=== PATIENT | male | born 1960 | race Caucasian/White ===

== ENCOUNTER 2018-11-15 12:36 | Emergency (ER) | payer OTHER ==
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
[2018-11-15 19:05] VITALS: TEMP 97.5
[2018-11-15 19:08] VITALS: BP 110/71; O2SAT 99
== END 2018-11-15 16:28 | disposition home or self-care (01) ==
LOC: ER 12:36
DX: S00.90XA Unspecified superficial injury of unspecified part of head, initial encounter (principal); S16.1XXA Strain of muscle, fascia and tendon at neck level, initial encounter; V43.52XA Car driver injured in collision with other type car in traffic accident, initial encounter; Y93.89 Activity, other specified; Y92.410 Unspecified street and highway as the place of occurrence of the external cause; K21.9 Gastro-esophageal reflux disease without esophagitis; F41.8 Other specified anxiety disorders
CPT/HCPCS: 70450; 72125; 99282

== ENCOUNTER 2019-09-02 17:16 | Emergency (ER) | payer OTHER ==
--- NOTE | 2019-09-02 17:42 | ER ---
Nurse's Notes [facility] Name: Ayden España Age: 59 yrs Sex: Male : 1960 Arrival Date: 09/02/2019 Time: 17:20 Bed 2 Private MD: Diagnosis: Acute contact otitis externa, bilateral Presentation: 09/01 17:26 Chief complaint: Patient states: Benton left ear fluttering today, possible insect. ll1 Coronavirus screen: Patient denies a cough. Patient denies shortness of breath or difficulty breathing. Patient denies measured and/or subjective temperature greater than 100.4F prior to today's visit. Patient denies travel on a cruise ship or to a country the [facility] currently lists as an affected area. Patient denies contact with known and/or suspected case of COVID-19. Ebola Screen: Patient denies travel to an Ebola-affected area in the 21 days before illness onset. Initial Sepsis Screen: Does the patient meet any 2 criteria? No. Patient's initial sepsis screen is negative. Risk Assessment: Do you want to hurt yourself or someone else? Patient reports no desire to harm self or others. Onset of symptoms was September 02, 2019. 17:26 Method Of Arrival: Ambulatory ll1 17:26 Acuity: MAVIS 4 ll1 17:30 Initial Sepsis Screen: Does the patient have a suspected source of infection? No. jr10 Patient's initial sepsis screen is negative. Historical: - Allergies: 17:25 NKDA; ll1 - PMHx: 17:25 BAKERS CYST REMOVAL; Depression; GERD; Anxiety; ll1 - Immunization history:: Adult Immunizations up to date. - Social history:: Smoking status: Patient denies any tobacco usage or history of. Patient uses alcohol, only on a social basis. Patient/guardian denies using street drugs. Screenin:30 Abuse screen: Denies threats or abuse. Denies injuries from another. Nutritional jr10 screening: No deficits noted. Tuberculosis screening: No symptoms or risk factors identified. Fall Risk None identified. Assessment: 17:30 General: Appears in no apparent distress. Behavior is calm, cooperative, appropriate jr10 for age. Pain: Denies pain. Neuro: No deficits noted. EENT: Reports "I feel a fluttering in my left ear that started at about 1630 after I took a shower and I feel like it's a bug in my ear like I can still feel it fluttering around." . Denies decreased hearing in left ear. Vital Signs: 17:26 BP 126 / 87; Pulse 85; Resp 17; Temp 98.6; Pulse Ox 99% ; Pain 0/10; ll1 ED Course: 17:20 Patient arrived in ED. mr 17:27 Triage completed. ll1 17:27 Arm band placed on Patient placed in an exam room, on a stretcher. ll1 17:28 Sundeep Piedra, RN is Primary Nurse. 17:30 Bed in low position. Call light in reach. Side rails up X 1. jr10 17:30 No provider procedures requiring assistance completed. jr10 17:30 Patient did not have IV access during this emergency room visit. jr10 17:37 Ye Brooks PA is PHCP. jr8 17:37 Carrington Rangel MD is Attending Physician. jr8 17:40 PHCP role handed off by Ye Brooks PA snw 17:40 Tessy Curtis FNP-C is PHCP. snw Administered Medications: No medications were administered Outcome: 17:41 Discharge ordered by . snw 17:54 Discharged to home jr10 17:54 Condition: good 17:54 Discharge instructions given to patient, d/c instructions given ENE Collins 17:58 Instructed on discharge instructions, follow up and referral plans. medication usage, sv Demonstrated understanding of instructions, follow-up care, medications, Prescriptions given X 1. 18:00 Patient left the ED. sv Signatures: Karina Marx RN RN Tessy Curtis FNP-C FNP-Marie Hussein Agueda Sundeep Piedra, RN ENE Ye Brooks PA PA [facility] Anaya Ma RN RN [facility] Loan Savage [facility]
--- NOTE | 2019-09-02 17:42 | EDPHYS ---
Physician Documentation [facility] Name: Ayden España Age: 59 yrs Sex: Male : 1960 Arrival Date: 09/02/2019 Time: 17:20 Bed 2 Private MD: ED Physician Carrington Rangel HPI: 09/01 17:51 This 59 yrs old Male presents to ER via Ambulatory with complaints of Foreign snw Body In Ear. 17:51 Onset: The symptoms/episode began/occurred suddenly. It is unknown whether or not the snw patient has had similar symptoms in the past. The patient has not recently seen a physician. Historical: - Allergies: 17:25 NKDA; ll1 - PMHx: 17:25 BAKERS CYST REMOVAL; Depression; GERD; Anxiety; ll1 - Immunization history:: Adult Immunizations up to date. - Social history:: Smoking status: Patient denies any tobacco usage or history of. Patient uses alcohol, only on a social basis. Patient/guardian denies using street drugs. ROS: 17:49 Constitutional: Negative for fever, chills, and weight loss, Eyes: Negative for injury, snw pain, redness, and discharge, ENT: Negative for injury, pain, and discharge, pt states he feels something moving in his left ear Neck: Negative for injury, pain, and swelling, Cardiovascular: Negative for chest pain, palpitations, and edema, Respiratory: Negative for shortness of breath, cough, wheezing, and pleuritic chest pain, Abdomen/GI: Negative for abdominal pain, nausea, vomiting, diarrhea, and constipation, Back: Negative for injury and pain, : Negative for injury, bleeding, discharge, and swelling, MS/Extremity: Negative for injury and deformity, Skin: Negative for injury, rash, and discoloration, Neuro: Negative for headache, weakness, numbness, tingling, and seizure, Psych: Negative for depression, anxiety, suicide ideation, homicidal ideation, and hallucinations. Exam: 17:48 Constitutional: This is a well developed, well nourished patient who is awake, alert, snw and in no acute distress. Head/Face: Normocephalic, atraumatic. Eyes: Pupils equal round and reactive to light, extra-ocular motions intact. Lids and lashes normal. Conjunctiva and sclera are non-icteric and not injected. Cornea within normal limits. Periorbital areas with no swelling, redness, or edema. ENT: Nares patent. No nasal discharge, no septal abnormalities noted. Tympanic membranes are normal and external auditory canals are slightly tender, erythematous. Oropharynx with no redness, swelling, or masses, exudates, or evidence of obstruction, uvula midline. Mucous membranes moist. Neck: Trachea midline, no thyromegaly or masses palpated, and no cervical lymphadenopathy. Supple, full range of motion without nuchal rigidity, or vertebral point tenderness. No Meningismus. Chest/axilla: Normal chest wall appearance and motion. Nontender with no deformity. No lesions are appreciated. Cardiovascular: Regular rate and rhythm with a normal S1 and S2. No gallops, murmurs, or rubs. Normal PMI, no JVD. No pulse deficits. Respiratory: Lungs have equal breath sounds bilaterally, clear to auscultation and percussion. No rales, rhonchi or wheezes noted. No increased work of breathing, no retractions or nasal flaring. Abdomen/GI: Soft, non-tender, with normal bowel sounds. No distension or tympany. No guarding or rebound. No evidence of tenderness throughout. Back: No spinal tenderness. No costovertebral tenderness. Full range of motion. Skin: Warm, dry with normal turgor. Normal color with no rashes, no lesions, and no evidence of cellulitis. MS/ Extremity: Pulses equal, no cyanosis. Neurovascular intact. Full, normal range of motion. Neuro: Awake and alert, GCS 15, oriented to person, place, time, and situation. Cranial nerves II-XII grossly intact. Motor strength 5/5 in all extremities. Sensory grossly intact. Cerebellar exam normal. Normal gait. Psych: Awake, alert, with orientation to person, place and time. Behavior, mood, and affect are within normal limits. Vital Signs: 17:26 BP 126 / 87; Pulse 85; Resp 17; Temp 98.6; Pulse Ox 99% ; Pain 0/10; ll1 MDM: 17:37 Patient medically screened. jr8 17:47 Data reviewed: vital signs, nurses notes. Data interpreted: Pulse oximetry: on room air snw is 99 %. Interpretation: normal. Counseling: I had a detailed discussion with the patient and/or guardian regarding: the historical points, exam findings, and any diagnostic results supporting the discharge/admit diagnosis, the presence of at least one elevated blood pressure reading (>120/80) during this emergency department visit, the need for outpatient follow up, for definitive care, to return to the emergency department if symptoms worsen or persist or if there are any questions or concerns that arise at home. Special discussion: I have referred the patient to see his PCP for further evaluation of high blood pressure. Based on the history and exam findings, there is no indication for further emergent testing or inpatient evaluation. I discussed with the patient/guardian the need to see the primary care provider for further evaluation of the symptoms. Administered Medications: No medications were administered Disposition: 19:06 Co-signature as Attending Physician, Carrington Rangel MD I agree with the assessment and kdr plan of care. Disposition: 09/02/19 17:41 Discharged to Home. Impression: Acute contact otitis externa, bilateral. - Condition is Stable. - Discharge Instructions: Ear Drops, Adult, Otitis Externa. - Prescriptions for Cortisporin- TC 3.3-3-10-0.5 mg/mL Otic Suspension - instill 4 drop by OTIC route every 6 hours; 1 bottle. - Medication Reconciliation Form, Thank You Letter, Antibiotic Education, Prescription Opioid Use form. - Follow up: Emergency Department; When: As needed; Reason: Worsening of condition. Follow up: Private Physician; When: 2 - 3 days; Reason: Recheck today's complaints, Continuance of care, Re-evaluation by your physician. Signatures: Karina Marx RN RN sv Rittger, Kevin, MD MD kdr Waters, Shelly, [employer]-Ye Enriquez PA PA jr8 Anaya Ma RN RN ll1 Corrections: (The following items were deleted from the chart) 18:00 17:41 09/02/2019 17:41 Discharged to Home. Impression: Acute contact otitis externa, sv bilateral. Condition is Stable. Forms are Medication Reconciliation Form, Thank You Letter, Antibiotic Education, Prescription Opioid Use. Follow up: Emergency Department; When: As needed; Reason: Worsening of condition. Follow up: Private Physician; When: 2 - 3 days; Reason: Recheck today's complaints, Continuance of care, Re-evaluation by your physician. snw
[2019-09-02 19:27] VITALS: BP 126/87; TEMP 98.6; O2SAT 99
== END 2019-09-02 18:00 | disposition home or self-care (01) ==
LOC: ER 17:16
DX: H60.533 Acute contact otitis externa, bilateral (principal)
CPT/HCPCS: 99282

== ENCOUNTER 2021-10-16 20:49 | Observation (INO) | payer OTHER ==
--- OUTSIDE RECORDS SUMMARY | 2021-10-16 20:53 | XMS REPORT | Continuity of Care Document ---
:1960 Author Organization [facility] t Address [address] [place] [address] Care Team Providers Name Role Phone KLEBER BERNABE Primary Care Physician Unavailable Kleber Bernabe Attending Clinician Unavailable Jass TAO, Blaine Rain Attending Clinician BLAINE BAILEY Attending Clinician Unavailable Payers Payer Name Policy Type Policy Number Effective Date Expiration Date S ource Problems Condition Condition Condition Status Onset Resolution Last Treating Co mments Source Name Details Category Date Date Treatment Clinician Date Hand pain, Hand pain, Disease Active U nivers left left 5-10 ity of 00:00: [address] Allergies, Adverse Reactions, Alerts Allergy Allergy Status Severity Reaction(s) Onset Inactive Treating Comm ents Source Name Type Date Date Clinician NO KNOWN Drug Active Univers ALLERGIE Class ity of S [facility] Social History Social Habit Start Date Stop Date Quantity Comments Source History of Chews Tobacco University of tobacco use [facility] Exposure to Not sure [facility] SARS-CoV-2 [facility] (event) [place] Alcohol intake 2020-10-15 2020-10-15 Current drinker Unive rsity of 00:00:00 00:00:00 of alcohol [facility] (finding) [place] Sex Ass[birth year] At [birth year] Universit y of 00:00:00 00:00:00 [facility] Smoking Status Start Date Stop Date Source Never smoker [facility] Medications Ordered Filled Start Stop Current Ordering Indication Dosage Frequency Signature Comments Components Source Medication Medication Date Date Medication? Clinician (SIG) Name Name diclofenac 2020-02 Yes [id number] 75mg Take 1 Univers 75 mg EC 2-01 tablet by ity of tablet 00:00: mouth 2 [place] (two) Medical times Branch daily with meals. diclofenac 2020-02 Yes [id number] 75mg Take 1 Univers 75 mg EC 2-01 tablet by ity of tablet 00:00: mouth 2 [place] (two) Medical times Branch daily with meals. diclofenac 0 Yes [id number] 75mg Take 1 Univers 75 mg EC 8-30 9102 tablet by ity of tablet 00:00: mouth 2 [place] (two) Medical times Branch daily with meals. diclofenac 0 Yes [id number] 75mg Take 1 Univers 75 mg EC 8-30 9102 tablet by ity of tablet 00:00: mouth 2 [place] (two) Medical times Branch daily with meals. CITALOPRAM Yes Take by [facility] ers HYDROBROMID 7-08 mouth. ity of E 12:54: [place] (CITALOPRAM 25 Medical ORAL) [place] OMEPRAZOLE Yes Take by [facility] ers ORAL 7-08 mouth. ity of 12:54: [address] aspirin 81 Yes 81mg Take 81 mg U nivers mg chewable 7-08 by mouth ity of tablet 12:54: daily. [address] CITALOPRAM Yes Take by [facility] HYDROBROMID 7-08 mouth. ity of E 12:54: [place] (CITALOPRAM 25 Medical ORAL) [place] OMEPRAZOLE Yes Take by [facility] ers ORAL 7-08 mouth. ity of 12:54: [address] aspirin 81 Yes 81mg Take 81 mg U nivers mg chewable 7-08 by mouth ity of tablet 12:54: daily. [address] DUEXIS Yes Univers 800-26.6 mg 3-08 ity of per tablet 00:00: [address] Branch DUEXIS Yes Univers 800-26.6 mg 3-08 ity of per tablet 00:00: [address] Branch Immunizations Ordered Filled Immunization Date Status Comments [facility] e Immunization Name Name SARS-COV-2 COVID-19 2020-06-16 Completed [facility] rsity of PFIZER VACCINE 00:00:00 [facility] SARS-COV-2 COVID-19 2020-06-16 Completed Unive rsity of PFIZER VACCINE 00:00:00 [facility] SARS-COV-2 COVID-19 2020-05-26 Completed Unive rsity of PFIZER VACCINE 00:00:00 [facility] SARS-COV-2 COVID-19 2020-05-26 Completed Unive rsity of PFIZER VACCINE 00:00:00 [facility] Vital Signs Vital Name Observation Time Observation Value Comments Source Systolic blood 2021-01-16 19:17:00 124 mm[Hg] Univer sity of [facility] Diastolic blood 2021-01-16 19:17:00 75 mm[Hg] Unive rsity of [facility] Heart rate 2021-01-16 19:17:00 82 /min [facility] Body height 2021-01-16 19:17:[address] [facility] Body weight 2021-01-16 19:17:[address] [facility] BMI 2021-01-16 19:17:00 27.98 kg/m2 [facility] Procedures This patient has no known procedures. Encounters Start End Encounter Admission Attending Care Care Encounter Source Date/Time Date/Time Type Type Clinicians Facility Department ID 2021-03-13 [facility] [id number] Common 14:03:11 [facility] [id number] [facility] 2021-03-13 [facility] [id number] Common 14:02:22 Kleber [id number] [facility] 2021-03-13 Outpatient Bernabe, [facility] [id number] Common 13:34:00 Kleber [id number] [facility] 2021-03-13 Outpatient Bernabe, [facility] [id number] Common 13:33:04 Kleber [id number] [facility] 2021-03-13 [facility] [id number] Common 13:29:32 Kleber [id number] [facility] 2021-03-13 Outpatient Bernabe, STLC [facility] [id number] Common 13:28:45 Kleber [id number] [facility] 2021-03-13 Outpatient Bernabe, [facility] [id number] Common 13:28:22 Kleber [id number] [facility] 2021-03-13 Outpatient Bernabe, STLMLC ST[facility] Common 13:05:47 Kleber [id number] [facility] 2021-03-13 Outpatient [facility] Common 12:46:43 [id number] [facility] 2021-03-13 Outpatient [facility] Common 12:42:18 [id number] [facility] 2021-01-16 2021-01-16 Office Jass [facility] [id number] Univers 13:05:09 13:56:23 Visit Blaine [facility] [id number] it y of [place] [id number] Michael as LEANNE?BLEA [phone] Mi silver JACKMAN [address] [place] [address] MEDICAL OFFICE BUILDING 2021-01-16 2021-01-16 Outpatient R JASS [facility] [id number] Univers 13:00:00 13:56:23 BLAINE beyer [facility] Results This patient has no known results.
[2021-10-16 21:39] LABS: Urine Blood Trace-lysed (Negative); Urine Glucose Negative (Negative); Urine Protein Negative (Negative)
[2021-10-16 21:46] LABS: Absolute Lymphocytes (CBC) 1.7 K/uL (0.7-4.9); Hematocrit 40.4 % (39.6-49.0); Lymphocytes % 36.3 % (15.3-44.8); MPV 6.7 fL (7.6-11.3); RBC Red Blood Cell Count 4.29 M/uL (4.33-5.43)
--- NOTE | 2021-10-16 21:52 | RAD REPORT ---
EXAM DESCRIPTION: Azam Single View10/16/2021 9:41 pm CLINICAL HISTORY: Chest pain COMPARISON: 2015 FINDINGS: The lungs appear clear of acute infiltrate. The heart is upper limits normal size IMPRESSION: No acute abnormalities displayed
[2021-10-16 21:55] LABS: SARS-CoV-2 Antigen Rapid Res Negative (Negative)
[2021-10-16 22:00] LABS: Protime INR 0.89
[2021-10-16 22:01] LABS: Albumin 3.9 g/dL (3.4-5.0); Bilirubin Direct 0.1 mg/dL (0-0.2); Bilirubin Total 0.4 mg/dL (0.2-1.0); Potassium 3.8 mmol/L (3.5-5.1); Protein, Total 7.3 g/dL (6.4-8.2); Troponin High Sensitivity 3.7 pg/mL (<58.9)
--- NOTE | 2021-10-16 22:17 | ER ---
Nurse's Notes [facility] Name: Ayden España Age: 61 yrs Sex: Male : 1960 Arrival Date: 10/16/2021 Time: 20:52 Bed Treatment Private MD: Diagnosis: Chest pain, unspecified Presentation: 10/16 20:59 Chief complaint: Left sided chest pain and nausea x 30 minutes. Coronavirus screen: At this time, the client does not indicate any symptoms associated with coronavirus-19. Ebola Screen: No symptoms or risks identified at this time. Initial Sepsis Screen: Does the patient meet any 2 criteria? No. Patient's initial sepsis screen is negative. Does the patient have a suspected source of infection? No. Patient's initial sepsis screen is negative. Risk Assessment: Do you want to hurt yourself or someone else? Patient reports no desire to harm self or others. Onset of symptoms was October 16, 2021. 20:59 Method Of Arrival: Ambulatory 20:59 Acuity: MAVIS 3 hb Historical: - Allergies: 21:00 NKDA; hb - Home Meds: 23:22 citalopram oral [Active]; Omeprazole Oral [Active]; Trazodone Oral [Active]; kb3 - PMHx: 21:00 Anxiety; BAKERS CYST REMOVAL; Depression; GERD; hb - Immunization history:: Adult Immunizations unknown, Client reports receiving the 2nd dose of the Covid vaccine, Last tetanus immunization: unknown. - Family history:: not pertinent. - Social history:: Smoking status: Patient denies any tobacco usage or history of. Patient uses alcohol. - Hospitalizations: : No recent hospitalization is reported. Screenin:30 Abuse screen: Denies threats or abuse. Denies injuries from another. Nutritional kb3 screening: No deficits noted. Tuberculosis screening: No symptoms or risk factors identified. Fall Risk No fall in past 12 months (0 pts). No secondary diagnosis (0 pts). IV access (20 points). Ambulatory Aid- None/Bed Rest/Nurse Assist (0 pts). Gait- Normal/Bed Rest/Wheelchair (0 pts) Mental Status- Oriented to own ability (0 pts). Total Hernandez Fall Scale indicates No Risk (0-24 pts). Assessment: 21:30 General: Appears in no apparent distress. comfortable, Behavior is calm, cooperative, kb3 [facility] care of [facility] reporting left-sided non-radiating chest pain with associated nausea x30 minutes. Pt denies SOB, sweating, cough, congestion, fever.. 21:30 Pain: Complains of pain in anterior aspect of left upper chest Pain does not radiate. kb3 Pain currently is 5 out of 10 on a pain scale. Pain began suddenly, 30 min ago. Cardiovascular: Reports chest pain, nausea, Heart tones present Capillary refill < 3 seconds Patient's skin is warm and dry. Rhythm is sinus rhythm. 23:43 General: Pt ambulatory to restroom without distress. kb3 Vital Signs: 20:59 BP 133 / 96; Pulse 75; Resp 16; Temp 97.1; Pulse Ox 99% on R/A; hb 21:52 BP 116 / 85; Pulse 58; Resp 14; Pulse Ox 97% on R/A; wm 22:00 BP 116 / 86; Pulse 58; Resp 16; Pulse Ox 96% ; Pain 4/10; kb3 23:00 BP 115 / 85; Pulse 56; Resp 16; Pulse Ox 97% ; Pain 0/10; kb3 ED Course: 20:52 Patient arrived in ED. ja2 21:00 Triage completed. hb 21:00 Arm band placed on. hb 21:01 Woodrow Fountain MD is Attending Physician. rn 21:18 Initial lab(s) drawn, by me, sent to lab. Urine collected: clean catch specimen, clear, wm COVID swab sent to lab. Inserted saline lock: 20 gauge in left antecubital area, using aseptic technique. Blood collected. 21:31 Basic Metabolic Panel Sent. wm 21:31 CBC with Diff Sent. wm 21:31 D-Dimer Sent. wm 21:31 LFT's Sent. wm 21:32 NT PRO-BNP Sent. wm 21:32 PT-INR Sent. wm 21:32 Troponin HS Sent. wm 21:32 ETOH Level Sent. wm 21:32 Lipase Sent. wm 21:32 SARS RAPID Sent. wm 21:43 XRAY Chest (1 view) In Process Unspecified. EDMS 21:45 No provider procedures requiring assistance completed. Patient maintains SpO2 kb3 saturation greater than 95% on room air. 21:52 Side rails up X2. Adult w/ patient. Client placed on continuous cardiac and pulse wm oximetry monitoring. NIBP monitoring applied. site monitor on. 22:16 Ayden Cuellar MD is Hospitalizing Provider. rn 22:31 Keri Hussein, RN is Primary Nurse. kb3 23:00 Warm blanket given. kb3 23:44 Patient admitted, IV remains in place. kb3 Administered Medications: 22:24 CANCELLED (pain freee): Nitroglycerin 0.4 mg Sublingual once rn 22:50 Drug: Aspirin Chewable Tablet 324 mg Route: PO; kb3 23:23 Follow up: Response: No adverse reaction kb3 Medication: 21:30 VIS not applicable for this client. kb3 Outcome: 22:16 Decision to Hospitalize by Provider. rn 23:42 Admitted to Med/surg accompanied by nurse, via wheelchair, Report called to Dustin LUQUE kb3 23:42 Condition: stable 23:42 Instructed on the need for admit. 23:48 Patient left the ED. vc1 Signatures: Dispatcher [employer] EDMS Woodrow Fountain MD MD rn Baxter, Heather, RN RN hb Marsh, Wendy Loan Wiseman Vanessa RN RN vc1 Keri Hussein, RN RN kb3 Corrections: (The following items were deleted from the chart) 21:33 21:30 Inserted saline lock: 20 gauge in left antecubital area, using aseptic technique. Blood collected. 21:33 21:30 Initial lab(s) drawn, by al, sent to lab. Urine collected: clean catch specimen, clear, COVID swab sent to lab.
--- NOTE | 2021-10-16 22:17 | EDPHYS ---
Physician Documentation [facility] Name: Ayden España Age: 61 yrs Sex: Male : 1960 Arrival Date: 10/16/2021 Time: 20:52 Bed Treatment Private MD: ED Physician Woodrow Fountain HPI: 10/16 21:02 This 61 yrs old Male presents to ER via Ambulatory with complaints of Chest Pain. rn 21:02 The patient or guardian reports chest pain that is located primarily in the substernal rn area. Onset: 20 minute(s) ago. The pain does not radiate. Associated signs and symptoms: Pertinent positives: nausea, Pertinent negatives: abdominal pain, cough, diaphoresis, shortness of breath, syncope, vomiting. The chest pain is described as a heaviness. Duration: The patient or guardian reports a single episode, that is still ongoing. Modifying factors: The symptoms are alleviated by nothing. the symptoms are aggravated by nothing. Severity of pain: At its worst the pain was moderate in the emergency department the pain is unchanged. The patient has not experienced similar symptoms in the past. The patient has not recently seen a physician. Historical: - Allergies: 21:00 NKDA; hb - Home Meds: 23:22 citalopram oral [Active]; Omeprazole Oral [Active]; Trazodone Oral [Active]; kb3 - PMHx: 21:00 Anxiety; BAKERS CYST REMOVAL; Depression; GERD; hb - Immunization history:: Adult Immunizations unknown, Client reports receiving the 2nd dose of the Covid vaccine, Last tetanus immunization: unknown. - Family history:: not pertinent. - Social history:: Smoking status: Patient denies any tobacco usage or history of. Patient uses alcohol. - Hospitalizations: : No recent hospitalization is reported. ROS: 21:02 Constitutional: Negative for fever, chills, and weight loss, Eyes: Negative for injury, rn pain, redness, and discharge, Neck: Negative for injury, pain, and swelling, Cardiovascular: Negative for palpitations, and edema, Respiratory: Negative for shortness of breath, cough, wheezing, and pleuritic chest pain, Abdomen/GI: Negative for abdominal pain, vomiting, diarrhea, and constipation, Back: Negative for injury and pain, MS/Extremity: Negative for injury and deformity, Skin: Negative for injury, rash, and discoloration, Neuro: Negative for headache, weakness, numbness, tingling, and seizure. Exam: 21:02 Constitutional: This is a well developed, well nourished patient who is awake, alert, rn appears uncomfortable Head/Face: Normocephalic, atraumatic. Eyes: Periorbital areas with no swelling, redness, or edema. ENT: no stridor Cardiovascular: Regular rate and rhythm. No pulse deficits. Respiratory: No increased work of breathing, no retractions or nasal flaring. Abdomen/GI: Soft, non-tender Skin: Warm, dry MS/ Extremity: Pulses equal, no cyanosis. Neurovascular intact. Full, normal range of motion. Equal circumference. Neuro: Awake and alert, GCS 15 21:08 ECG was reviewed by the Attending Physician. rn Vital Signs: 20:59 BP 133 / 96; Pulse 75; Resp 16; Temp 97.1; Pulse Ox 99% on R/A; hb 21:52 BP 116 / 85; Pulse 58; Resp 14; Pulse Ox 97% on R/A; wm 22:00 BP 116 / 86; Pulse 58; Resp 16; Pulse Ox 96% ; Pain 4/10; kb3 23:00 BP 115 / 85; Pulse 56; Resp 16; Pulse Ox 97% ; Pain 0/10; kb3 MDM: 21:01 Patient medically screened. rn 22:15 Differential diagnosis: acute myocardial infarction, acute pericarditis, anxiety, rn coronary artery disease chest wall pain, costochondritis, esophagitis, gastritis, gastroesophageal reflux disease (GERD), pericarditis, pneumothorax, pulmonary embolus, stable angina. Data reviewed: vital signs, nurses notes, lab test result(s), EKG, radiologic studies, plain films, and as a result, I will admit patient. Counseling: I had a detailed discussion with the patient and/or guardian regarding: the historical points, exam findings, and any diagnostic results supporting the discharge/admit diagnosis, lab results, radiology results, the need for further work-up and treatment in the hospital. Response to treatment: the patient's symptoms have mildly improved after treatment, and as a result, I will admit patient. Admission orders: after a detailed discussion of the patient's condition and case, the admit orders are written by me. 10/16 21:02 Order name: Basic Metabolic Panel; Complete Time: 22:15 rn 10/16 21:02 Order name: CBC with Diff; Complete Time: 21:59 rn 10/16 21:02 Order name: D-Dimer; Complete Time: 22:15 rn 10/16 21:02 Order name: LFT's; Complete Time: 22:15 rn 10/16 21:02 Order name: NT PRO-BNP; Complete Time: 22:15 rn 10/16 21:02 Order name: PT-INR; Complete Time: 22:15 rn 10/16 21:02 Order name: Troponin HS; Complete Time: 22:15 rn 10/16 21:02 Order name: XRAY Chest (1 view); Complete Time: 21:59 rn 10/16 21:02 Order name: SARS RAPID; Complete Time: 21:59 rn 10/16 21:05 Order name: Lipase; Complete Time: 21:59 rn 10/16 21:05 Order name: ETOH Level; Complete Time: :59 rn 10/16 21:39 Order name: Urine Dipstick-Ancillary; Complete Time: :59 EDMS 10/16 21:02 Order name: EKG; Complete Time: 21:03 rn 10/16 21:02 Order name: Cardiac monitoring; Complete Time: 21:56 rn 10/16 21:02 Order name: EKG - Nurse/Tech; Complete Time: 21: rn 10/16 21:02 Order name: IV Saline Lock; Complete Time: :31 rn 10/16 21:02 Order name: Labs collected and sent; Complete Time: :31 rn 10/16 21:02 Order name: O2 Per Protocol; Complete Time: :56 rn 10/16 21:02 Order name: O2 Sat Monitoring; Complete Time: 21:56 rn EC:08 Rate is 69 beats/min. Rhythm is regular. QRS [place] is Normal. CT interval is normal. QRS rn interval is normal. QT interval is normal. No Q waves. T waves are Normal. No ST changes noted. Clinical impression: Normal ECG. Interpreted by me. Reviewed by me. Administered Medications: 22:24 CANCELLED (pain freee): Nitroglycerin 0.4 mg Sublingual once rn 22:50 Drug: Aspirin Chewable Tablet 324 mg Route: PO; kb3 23:23 Follow up: Response: No adverse reaction kb3 Disposition Summary: 10/16/21 22:16 Hospitalization Ordered Hospitalization Status: Observation rn Provider: Ayden Cuellar rn Condition: Stable rn Problem: new rn Symptoms: have improved rn Bed/Room Type: Standard rn Location: Intensive Care Unit(10/16/21 22:58) cg Room Assignment: 8-(10/16/21 22:58) cg Diagnosis - Chest pain, unspecified rn Forms: - Medication Reconciliation Form rn - SBAR form rn Signatures: Dispatcher [employer] EDWoodrow Bennett MD MD rn Garcia, Cindy, RN RN Ceci Bose RN RN hb Bradberry, Kelly RN RN kb3 Corrections: (The following items were deleted from the chart) 22:24 22:00 Nitroglycerin 0.4 mg Sublingual once ordered. rn rn 22:58 22:16 Telemetry/MedSurg (observation) rn cg :58 22:16 rn cg
[2021-10-16] MEDS ORDERED: ASPIRIN 81 MG CHEWABLE TABLET ONE (22:53)
--- NOTE | 2021-10-16 23:02 | P.HP ---
Certification for Inpatient Patient admitted to: Observation With expected LOS: <2 Midnights Patient will require the following post-hospital care: None Practitioner: I am a practitioner with admitting privileges, knowledge of patient current condition, hospital course, and medical plan of care. Services: Services provided to patient in accordance with Admission requirements found in Title 42 Section 412.3 of the Code of Federal Regulations <KalebAnton Mcarthur - Last Filed: 10/16/21 23:00> Patient History Date of Service: 10/16/21 Reason for admission: Chest pain History of Present Illness: 61-year-old male with history of GERD, alcohol abuse presents emergency department for chest pain. He reports that he was recently discharged from alcohol rehab center on the of this month, today he had around 8 beers, while resting he developed some left-sided chest pain associated with nausea and some shortness of breath. He denies similar episodes in the past. He was evaluated in the emergency department his EKG was without STEMI criteria initial troponin negative he reports his last tress test was "many years ago" has never had a heart catheterization. ED provider wishes to admit under observation for ACS rule out. - Past Medical/Surgical History Diabetic: No -: anxiety -: depression -: GERD -: carpal tunnel repair -: back of knee sx Psychosocial/ Personal History: Patient works part-time as a transportation maintenance specialist, lives at home with his - Family History Father -: Heart disease Mother -: Heart disease - Social History Smoking Status: Never smoker Alcohol use: Yes CD- Drugs: No Caffeine use: Yes Place of Residence: Home <Anton Manuel - Last Filed: 10/16/21 23:00> Date of Service: 10/17/21 <Ayden Cuellar - Last Filed: 10/17/21 19:55> Allergies No Known Drug Allergies Allergy (Verified 10/03/15 23:51) Unknown Home Medications: Citalopram Hydrobromide [Citalopram HBr] 40 mg PO BEDTIME 10/03/15 Omeprazole 20 mg PO BEDTIME 10/03/15 Trazodone HCl [Desyrel] 50 mg PO BEDTIME 10/03/15 Aspirin [Aspirin EC 81 MG] 81 mg PO DAILY #30 10/17/21 Review of Systems 10-point ROS is otherwise unremarkable Respiratory: Shortness of Breath Cardiovascular: Chest Pain Gastrointestinal: Nausea <Anton Manuel - Last Filed: 10/16/21 23:00> Physical Examination - Physical Exam General: Alert, In no apparent distress, Oriented x3 HEENT: Atraumatic, PERRLA, Mucous membr. moist/pink, EOMI, Sclerae nonicteric Neck: Supple, 2+ carotid pulse no bruit, No LAD, Without JVD or thyroid abnormality Respiratory: Clear to auscultation bilaterally, Normal air movement Cardiovascular: Regular rate/rhythm, Normal S1 S2 Gastrointestinal: Normal bowel sounds, No tenderness Musculoskeletal: No tenderness Integumentary: No rashes Neurological: Normal speech, Normal strength at 5/5 x4 extr, Normal tone, Normal affect - Studies Laboratory Data (last 24 hrs) 10/16/21 21:18: Lipase 149 10/16/21 21:18: PT 9.8, INR 0.89 10/16/21 21:18: WBC 4.70, Hgb 14.2, Hct 40.4, Plt Count 194 10/16/21 21:18: Sodium 138, Potassium 3.8, BUN 7, Creatinine 0.85, Glucose 101, Total Bilirubin 0.4, AST 25, ALT 45, Alkaline Phosphatase 23 L <Anton Manuel - Last Filed: 10/16/21 23:00> - Studies Laboratory Data (last 24 hrs) 10/16/21 21:18: Lipase 149 10/16/21 21:18: PT 9.8, INR 0.89 10/16/21 21:18: WBC 4.70, Hgb 14.2, Hct 40.4, Plt Count 194 10/16/21 21:18: Sodium 138, Potassium 3.8, BUN 7, Creatinine 0.85, Glucose 101, Total Bilirubin 0.4, AST 25, ALT 45, Alkaline Phosphatase 23 L <Ayden Cuellar - Last Filed: 10/17/21 19:55> Assessment and Plan - Plan Assessment: Chest pain rule out ACS Alcohol abuse Anxiety/depression GERD Plan: Chest pain rule out ACS: Trend troponins, monitor on telemetry, cardiology consult in place. Continue aspirin obtain lipid panel. Alcohol abuse: Patient recently was released from rehab for alcohol on the , has not had a drink until today reportedly when he drank 8 beers. Unlikely to have alcohol withdrawal as still does plan on quitting. Will monitor for signs of alcohol drawl. Anxiety/depression: Continue medications once verified. GERD: Possibly contributing given alcohol intake will provide with Protonix. DVT PPX: Lovenox Code status: Full Discharge Plan: Home Plan to discharge in: 24 Hours - Advance Directives Does patient have a Living Will: No Does patient have a Durable POA for Healthcare: No - Code Status/Comfort Care Code Status Assessed: Yes (Full code) Critical Care: No Time Spent Managing Pts Care (In Minutes): 70 <Anton Manuel - Last Filed: 10/16/21 23:00> Physician Review: Patient Assessed, Agree with Above Assessment and Plan <Ayden Cuellar - Last Filed: 10/17/21 19:55>
[2021-10-16] MEDS ORDERED: ONDANSETRON 4 MG/2 ML VIAL IV PRN (23:20)
[2021-10-17 00:23] VITALS: BMI 26.5
[2021-10-17 03:34] VITALS: O2SAT 97
[2021-10-17 04:57] LABS: Hematocrit 39.7 % (39.6-49.0); Lymphocytes % 42.3 % (15.3-44.8); MCV 94.5 fL (80-100); MPV 6.6 fL (7.6-11.3)
[2021-10-17 04:58] LABS: Absolute Lymphocytes (CBC) 1.4 K/uL (0.7-4.9)
[2021-10-17 05:23] LABS: Albumin 3.7 g/dL (3.4-5.0); Bilirubin Total 0.6 mg/dL (0.2-1.0); Potassium 3.8 mmol/L (3.5-5.1); Protein, Total 7.1 g/dL (6.4-8.2); Thyroid Stimulating Hormone 1.23 uIU/mL (0.360-3.740); Troponin High Sensitivity 3.4 pg/mL (<58.9)
[2021-10-17] MEDS ORDERED: PANTOPRAZOLE 40MG TABLET PO SCH (06:30)
[2021-10-17] MEDS ORDERED: POTASSIUM 25 MEQ EFFERV TAB PO ONE (07:30)
[2021-10-17] MEDS ORDERED: REGADENOSON 0.4 MG/5 ML SYR IV ONE (08:00)
[2021-10-17] MEDS ORDERED: ENOXAPARIN 40 MG/0.4 ML SQ SCH (09:00)
[2021-10-17] MEDS ORDERED: ASPIRIN EC 81 MG TAB PO SCH (09:00)
--- NOTE | 2021-10-17 09:55 | RAD REPORT ---
EXAM DESCRIPTION: NM - Rest Stress Cardiac Imaging - 10/17/2021 9:48 am CLINICAL HISTORY: Chest pain COMPARISON: None. TECHNIQUE: The patient was administered 10.5 mCi of Tc 99m Sestamibi prior to resting SPECT imaging of the heart. The patient was then administered 31 point mCi of Tc 99m Sestamibi following exercise o r pharmacologic stress. Multiplanar SPECT images were reviewed. FINDINGS: The end diastolic volume is 135 ml, the end systolic volume is 56 ml, and the ejection fra ction is 58 %. No stress-induced ischemic change identified. Small area of moderately diminished activity is seen in the anterior wall unchanged between rest and stress imaging. IMPRESSION: No stress-induced ischemia. Minimal focus of scarring in the anterior wall. End-diastolic volume is increased slightly in 135 mL. Ejection fraction is normal at 58%.
--- NOTE | 2021-10-17 12:29 | CON ---
Date of Consultation: 10/16/2021 Reason For Consultation: Chest pain. History Of Present Illness: Mr. España is 61, history of anxiety, depression, gastroesophageal refl ux disease. Came in with left sharp, stabbing chest pain, lasted about 20 minutes. It is the left l ateral chest wall, worse with movement. No nausea, vomiting, diaphoresis, PND, orthopnea, pedal megan a, palpitation, or syncope. He has ruled out so far. EKG is normal. Heart rate was 45. Alcohol le royer was 156. Family history is positive for heart disease and congestive heart failure in his mom. Allergies: NEGATIVE. Review of Systems: Negative. Social History: Negative. Family History: Negative. Medications: At home include citalopram, omeprazole, and trazodone. Physical Examination: Vital Signs: Stable, afebrile. HEENT: Negative. Neck: Supple with no bruit. Chest: Clear to auscultation and percussion. Cardiac: Revealed a regular rhythm and rate. No murmurs, gallops, or rubs. Abdomen: Benign. Extremities: Revealed no clubbing, cyanosis, or edema. Diagnostic Data: Normal. Impression And Plan: Atypical chest pain. Echocardiogram and Lexiscan are pending. We will see víctor slaughter the echo shows before making further decisions. CHRIS/LISA Voice ID: [id number] Report ID: [id number]
--- NOTE | 2021-10-17 13:56 | EKG ---
Test Date: 2021-10-16 Test Time: 21:06:49 Operator Command Support Systems: HB MEASUREMENT RESULTS: Intervals: Rate: 69 MA: 158 QRSD: 90 QT: 376 QTc: 402 [place]: P: 35 MA: 158 QRS: 31 T: 20 INTERPRETIVE STATEMENTS: Normal sinus rhythm Normal ECG Compared to ECG 10/04/2015 06:34:40 Sinus bradycardia no longer present Sinus arrhythmia no longer present Electronically Signed On 10-17-21 13:55:06 CDT by Miguelito Goodrich
--- NOTE | 2021-10-17 14:06 | TREADPHA ---
DX: CHEST PAIN Date of Study: 10/17/2021 Ht: 5' 10 " Wt: 185 lb 0 oz Consulting Physician: SHAMIKA MEDICATIONS: ASPIRIN, LOVENOX, K-LYTE HISTORY: 61 YEAR OLD MALE WITH COMPLAINTS OF CHEST PAIN. HISTORY OF ANXIETY, DEPRESSION, NON- SMOKER, DRINKS 6 BEERS DAILY. PHYSICIAL EXAMINATION: RESTING B.P.: 124/74 RESTING H.R.: 48 RESTING EKG: SINUS BRADYCARDIA. PROTOCOL: LEXISCAN EXERCISE TIME: 3:30 B.P. AT PEAK STRESS: 126/73 IMPRESSION: LEXISCAN INJECTED FOLLOWED BY CARDIOLITE PER PROTOCOL. SEE NUCLEAR MEDICINE REPORT. NO SUPRAVENTRICULAR OR VENTRICULAR TACHYCARDIA. NO PREMATURE ATRIAL COMPLEXES OR PREMATURE VENTRICULAR COMPLEXES NOTED. PATIENT REPORTS NO CHEST PAIN. NO EKG CHANGES OF ISCHEMIA WITH LEXISCAN.
--- NOTE | 2021-10-17 14:19 | ECHO ---
HEIGHT: 5 ft 10 in WEIGHT: 185 lb 0 oz DATE OF STUDY: 10/17/[address]: Ismael Laureano MD 2-DIMENSIONAL: YES M.MODE: YES DOPPLER: YES COLOR FLOW: YES TDS: NO PORTABLE: YES DEFINITY: NO BUBBLE STUDY: NO DIAGNOSIS: CHEST PAIN CARDIAC HISTORY: CATHERIZATION: NO SURGERY: NO PROSTHETIC VALVE: NO PACEMAKER: NO MEASUREMENTS (cm) DIASTOLIC (NORMALS) SYSTOLIC (NORMALS) IVSd 1.1 (0.6-1.2) LA Diam 2.2 (1.9-4.0) LVEF 60-65% LVIDd 4.6 (3.5-5.7) LVIDs 2.7 (2.0-3.5) %FS 41% LVPWd 1.1 (0.6-1.2) Ao Diam 2.9 (2.0-3.7) 2 DIMENSIONAL ASSESSMENT: RIGHT ATRIUM: NORMAL LEFT ATRIUM: NORMAL RIGHT VENTRICLE: NORMAL LEFT VENTRICLE: NORMAL TRICUSPID VALVE: NORMAL MITRAL VALVE: NORMAL PULMONIC VALVE: NORMAL AORTIC VALVE: NORMAL PERICARDIAL EFFUSION: NONE AORTIC ROOT: NORMAL LEFT VENTRICULAR WALL MOTION: NORMAL DOPPLER/COLOR FLOW: NORMAL COMMENTS: NORMAL LEFT VENTRICULAR EJECTION FRACTION 60-65%. NORMAL WALL MOTION. NORMAL DIASTOLIC FUNCTION. TECHNOLOGIST: Genny PARIKH
--- NOTE | 2021-10-17 15:12 | P.DS ---
Admission Date: 10/16/21 Discharge Date: 10/17/21 Disposition: ROUTINE DISCHARGE Discharge Condition: GOOD Reason for Admission: Chest pain Consultations: 1. Cardiology Hospital Course: DIAGNOSES: # Chest Pain, Atypical # Alcohol Use Disorder # Anxiety # Depression # Gastroesophageal Reflux Disease HOSPITAL COURSE: Mr. Ayden España is a 61 year old male with a past medical history significant for alcohol use disorder, anxiety, depression, and gastroesophageal reflux disease who was admitted to the [facility] on 10/16/2021 for chest pain. He was admitted to the Medicine service for further evaluation. His EKG was reportedly without any STEMI criteria. His troponin trend was 3.7, 3.4, and 3.4, respectively. A transthoracic echocardiogram revealed, "normal left ventricular ejection fraction 60-65%. normal wall motion. normal diastolic function." Cardiology was consulted and he was seen by Dr. Laureano, who recommended a nuclear medicine stress test. This test revealed, "no stress-induced ischemia. Minimal focus of scarring in the anterior wall. End-diastolic volume is increased slightly in 135 mL. Ejection fraction is normal at 58%." Dr. Laureano has cleared him for discharge home with a follow-up appointment. On 10/17/2021, he was seen on rounds and deemed medically stable for discharge. He was discharged with instructions to schedule follow-up appointments with a PCP (Dr. Bernabe) in 3-[address] Laureano (Cardiology) in 5-7 days. I have provided him with extensive alcohol cessation counseling prior to discharge. He was given the opportunity to ask questions and reported no further questions. Furthermore, all questions were answered to the best of my ability. Today, I personally spent 20 minutes on his case, of which greater than 50% of the time was spent in patient education, counseling, and coordination of care as described above. Vital Signs/Physical Exam: Temp Pulse Resp BP Pulse Ox 97.6 F 81 15 138/88 97 10/17/21 12:10/17/21 12:10/17/21 12:00 10/17/21 12:10/17/21 12:00 General: Alert, In no apparent distress, Oriented x3 HEENT: Atraumatic, PERRLA, Mucous membr. moist/pink, EOMI, Sclerae nonicteric Neck: Supple, JVD not distended Respiratory: Clear to auscultation bilaterally, Normal air movement Cardiovascular: No edema, Regular rate/rhythm, Normal S1 S2, No gallops, No rubs, No murmurs Gastrointestinal: Normal bowel sounds, Soft and benign, Non-distended, No tenderness, No rebound, No guarding Musculoskeletal: No clubbing Integumentary: No rashes Neurological: Normal speech, Cranial nerves 3-12 intact, Normal affect Laboratory Data at Discharge: WBC 3.40 K/uL (4.3-10.9) L D 10/17/21 04:34 Hgb 14.0 g/dL (13.6-17.9) 10/17/21 04:34 Hct 39.7 % (39.6-49.0) 10/17/21 04:34 Plt Count 190 K/uL (152-406) 10/17/21 04:34 PT 9.8 SECONDS (9.5-12.5) 10/16/21 21:18 INR 0.89 10/16/21 21:18 Sodium 140 mmol/L (136-145) 10/17/21 04:34 Potassium 3.8 mmol/L (3.5-5.1) 10/17/21 04:34 BUN 6 mg/dL (7-18) L 10/17/21 04:34 Creatinine 0.88 mg/dL (0.55-1.3) 10/17/21 04:34 Glucose 90 mg/dL (74-106) 10/17/21 04:34 Total Bilirubin 0.6 mg/dL (0.2-1.0) 10/17/21 04:34 AST 25 U/L (15-37) 10/17/21 04:34 ALT 41 U/L (12-78) 10/17/21 04:34 Alkaline Phosphatase 19 U/L (45-117) L 10/17/21 04:34 Triglycerides 123 mg/dL (<150) 10/17/21 04:34 Cholesterol 188 mg/dL (<200) 10/17/21 04:34 HDL Cholesterol 69 mg/dL (40-60) H 10/17/21 04:34 Cholesterol/HDL Ratio 2.72 10/17/21 04:34 Lipase 149 U/L (73-393) 10/16/21 21:18 Home Medications: Citalopram Hydrobromide [Citalopram HBr] 40 mg PO BEDTIME 10/03/15 Omeprazole 20 mg PO BEDTIME 10/03/15 Trazodone HCl [Desyrel] 50 mg PO BEDTIME 10/03/15 Aspirin [Aspirin EC 81 MG] 81 mg PO DAILY #30 10/17/21 New Medications: Aspirin [Aspirin EC 81 MG] 81 mg PO DAILY #30 Physician Discharge Instructions: PROBLEM: chest pain GOAL: Clear understanding of disease process INSTRUCTIONS: 1. Please schedule a follow-up appointment with your PCP (Dr. Bernabe) in 3-5 days 2. Please schedule a follow-up appointment with Cardiology (Dr. Laureano) in 5-7 days Diet: AHA Activity: Ad polina DME DME: Date Ordered: Name of Company: [employer] Services Needed: Name of Company: Date or Referral: IMMUNIZATION Influenza Vaccine Indicated: Influenza Vaccine Given: Date Given: Pneumonia Vaccine Indicated: No Pneumonia Vaccine Given: Date Given: Follow up with a [employer] Supervisor of your choice: ISMAEL LAUREANO MD [address] [place] [id number] Diet: AHA Activity: Ad polina Followup: Kleber Bernabe, DO [Primary Care Provider] - Ismael Laureano MD [ACTIVE - CAN ADMIT] - Time spent managing pt's care (in minutes): 20
[2021-10-17 16:03] VITALS: BP 138/88; TEMP 97.6
== END 2021-10-17 16:40 | disposition home or self-care (01) ==
LOC: ER 20:49 → ERHOLD 22:56 → 3RD-ICU 23:41
PROVIDERS: ADMIT Internal Medicine; ATTEND Internal Medicine
DX: R07.89 Other chest pain (principal); F41.9 Anxiety disorder, unspecified; F32.A Depression, unspecified; K21.9 Gastro-esophageal reflux disease without esophagitis; F10.10 Alcohol abuse, uncomplicated; Z71.41 Alcohol abuse counseling and surveillance of alcoholic; Z79.82 Long term (current) use of aspirin; Z79.899 Other long term (current) drug therapy; Z20.822 Contact with and (suspected) exposure to COVID-19; Z82.49 Family history of ischemic heart disease and other diseases of the circulatory system
CPT/HCPCS: 93005; 93017; 93306; 85025 ×2; 80048; 36415; 80320 ×2; 85610; 80061; 82947; 85379; 80076; 84443; 81003; 84484 ×3; 84439; 83690; 80053; 83880; 71045; 78452; 99285; 87811; J1650; J2785; A9500; G0378 ×2

== ENCOUNTER 2022-03-06 18:39 | Emergency (ER) | payer OTHER ==
--- OUTSIDE RECORDS SUMMARY | 2022-03-06 18:43 | XMS REPORT | Continuity of Care Document ---
:1960 [facility] t Address Formerly [facility], [facility] Don Moya [address] [place] [address] Care Team Providers Name Role Phone YUAN BERNABE Primary Care Physician Unavailable Yuan Bernabe Attending Clinician Unavailable MICKEY COCHRAN.HClark Attending Clinician Unavailable Mickey Cochran MDHClark Attending Clinician Doctor Unassigned, [place] Attending Clinician Unavailable JAG BADILLO Attending Clinician Unavailable Jag Corey Attending Clinician Roge Regan MD Attending Clinician ROGE REGAN Attending Clinician Unavailable GOYO PARRISH Attending Clinician Unavailable Payers Payer Name Policy Type Policy Number Effective Date Expiration Date S ource Problems Condition Condition Condition Status Onset Resolution Last Treating Co mments Source Name Details Category Date Date Treatment Clinician Date Hand pain, Hand pain, Disease Active U nivers left left 5-10 ity of 00:00: [address] Allergies, Adverse Reactions, Alerts Allergy Allergy Status Severity Reaction(s) Onset Inactive Treating Comm ents Source Name Type Date Date Clinician NO KNOWN Drug Active Univers ALLERGIE Class ity of [facility] Social History Social Habit Start Date Stop Date Quantity Comments Source History of Chews Tobacco University of tobacco use [facility] Exposure to 2022-01-17 2022-01-27 Not sure University [facility]-CoV-2 00:00:00 14:47:00 [facility] (event) Lares Alcohol intake 2022-01-27 2022-01-27 Current drinker Unive rsity of 00:00:00 00:00:00 of alcohol [place] [facility] (finding) La[place] Tobacco use and 2012-12-24 2012-12-24 User of smokeless Un iversity of exposure 00:00:00 00:00:[address] [facility] Sex Ass[birth year] At [birth year] Universit y of 00:00:00 00:00:00 [facility] Smoking Status Start Date Stop Date Source Never smoked tobacco [facility] Medications Ordered Filled Start Stop Current Ordering Indication Dosage Frequency Signature Comments Components Source Medication Medication Date Date Medication? Clinician (SIG) Name Name aspirin 81 2021-02- No 81mg Take 81 mg Univers mg chewable 2-12 12-12 by mouth ity of tablet 15:06: 00:00 daily. [place] :00 [facility] aspirin 81 2021-02- No 81mg Take 81 mg Univers mg chewable 2-12 12-12 by mouth ity of tablet 15:06: 00:00 daily. [place] 22 :00 [facility] OMEPRAZOLE 2021-02- No Take by Uni vers ORAL 2-12 12-12 mouth. ity of 15:06: 00:00 [place] 13 :00 [facility] OMEPRAZOLE 2021-02- No Take by Uni vers ORAL 2-12 12-12 mouth. ity of 15:06: 00:00 [place] 13 :00 [facility] traZODone 0 Yes 50mg 50 mg. Univer s 50 mg 9-27 ity of tablet 00:00: [place] [facility] traZODone 2021-0 Yes 50mg 50 mg. Univer s 50 mg 9-27 ity of tablet 00:00: [place] [facility] traZODone 2021-0 Yes 50mg 50 mg. Univer s 50 mg 9-27 ity of tablet 00:00: [place] [facility] traZODone 2021-0 Yes 50mg 50 mg. Univer s 50 mg 9-27 ity of tablet 00:00: [place] [facility] traZODone 2021-0 Yes 50mg 50 mg. Univer s 50 mg 9-27 ity of tablet 00:00: [address] diclofenac 2020- Yes [id number] 75mg Take 1 Univers 75 mg EC 2-01 tablet by ity of tablet 00:00: mouth 2 [place] [id number] (two) Medical times Branch daily with meals. diclofenac 2020-02 Yes [id number] 75mg Take 1 Univers 75 mg EC 2-01 tablet by ity of tablet 00:00: mouth [place] (two) Medical times Branch daily with meals. diclofenac 2020-02 Yes [id number] 75mg Take 1 Univers 75 mg EC 2-01 tablet by ity of tablet 00:00: mouth [place] (two) Medical times Branch daily with meals. diclofenac 2020-02 Yes [id number] 75mg Take 1 Univers 75 mg EC 2-01 tablet by ity of tablet 00:00: mouth [place] (two) Medical times Branch daily with meals. diclofenac 2020-02- No [id number] 75mg Take 1 Univers 75 mg EC 2-01 12-12 tablet by ity o f tablet 00:00: 00:00 mouth [place] 00 : (two) Medical times Branch daily with meals. diclofenac 2020-02- No [id number] 75mg Take 1 Univers 75 mg EC 2-01 12-12 tablet by ity o f tablet 00:00: 00:00 [facility] [place] 00 :00 (two) Medical times Branch daily with meals. diclofenac Yes [id number] 75mg Take 1 Univers 75 mg EC 8-30 9102 tablet by ity of tablet 00:00: [facility] [place] (two) Medical times Branch daily with meals. diclofenac 0 Yes [id number] 75mg Take 1 Univers 75 mg EC 8-30 9102 tablet by ity of tablet 00:00: mouth [place] (two) Medical times Branch daily with meals. diclofenac 0 Yes [id number] 75mg Take 1 Univers 75 mg EC 8-30 9102 tablet by ity of tablet 00:00: mouth [place] (two) Medical times Branch daily with meals. diclofenac 0 Yes [id number] 75mg Take 1 Univers 75 mg EC 8-30 9102 tablet by ity of tablet 00:00: mouth [place] (two) Medical times Branch daily with meals. diclofenac 2021- No [id number] 75mg Take 1 Univers 75 mg EC 8-30 12-12 9102 tablet by ity o f tablet 00:00: 00:00 [facility] [place] 00 :00 (two) Medical times Branch daily with meals. diclofenac 2- No [id number] 75mg Take 1 Univers 75 mg EC 10-15 9102 tablet by ity o f tablet 00:00: 00:00 mouth 2 [place] 00 :00 (two) Medical times Branch daily with meals. aspirin 81 Yes 81mg Take 81 mg U nivers mg chewable 7-08 by mouth ity of tablet 12:54: daily. [address] Branch CITALOPRAM Yes Take by [facility] ers HYDROBROMID 7-08 mouth. ity of E 12:54: [place] (CITALOPRAM 25 Medical ORAL) Branch OMEPRAZOLE Yes Take by [facility] ers ORAL 7-08 mouth. ity of 12:54: [address] Branch aspirin 81 Yes 81mg Take 81 mg U nivers mg chewable 7-08 by mouth ity of tablet 12:54: daily. [address] Branch CITALOPRAM Yes Take by [facility] ers HYDROBROMID 7-08 mouth. ity of E 12:54: [place] (CITALOPRAM 25 Medical ORAL) Branch CITALOPRAM Yes Take by Univ ers HYDROBROMID 7-08 mouth. ity of E 12:54: [place] (CITALOPRAM 25 Medical ORAL) Branch CITALOPRAM Yes Take by Univ ers HYDROBROMID 7-08 mouth. ity of E 12:54: [place] (CITALOPRAM 25 Medical ORAL) Branch CITALOPRAM Yes Take by [facility] ers HYDROBROMID 7-08 mouth. ity of E 12:54: [place] (CITALOPRAM 25 Medical ORAL) Branch CITALOPRAM Yes Take by [facility] ers HYDROBROMID 7-08 mouth. ity of E 12:54: [place] (CITALOPRAM 25 Medical ORAL) Branch CITALOPRAM Yes Take by Univ ers HYDROBROMID 7-08 mouth. ity of E 12:54: [place] (CITALOPRAM 25 Medical ORAL) Branch OMEPRAZOLE Yes Take by Univ ers ORAL 7-08 mouth. ity of 12:54: [address] Branch aspirin 81 Yes 81mg Take 81 mg U nivers mg chewable 7-08 by mouth ity of tablet 12:54: daily. [address] CITALOPRAM Yes Take by [facility] ers HYDROBROMID 7-08 mouth. ity of E 12:54: [place] (CITALOPRAM 25 Medical ORAL) Branch OMEPRAZOLE Yes Take by [facility] ers ORAL 7-08 mouth. ity of 12:54: [address] aspirin 81 Yes 81mg Take 81 mg U nivers mg chewable 7-08 by mouth ity of tablet 12:54: daily. [address] CITALOPRAM Yes Take by [facility] ers HYDROBROMID 7-08 mouth. ity of E 12:54: [place] (CITALOPRAM 25 Medical ORAL) Branch OMEPRAZOLE Yes Take by [facility] ORAL 7-08 mouth. ity of 12:54: [address] DUEXIS Yes Univers 800-26.6 mg 3-08 ity of per tablet 00:00: [place] [address] Medical Branch DUEXIS 2016-0 Yes Univers 800-26.6 mg 3-08 ity of per tablet 00:00: [place] [address] Medical Branch DUEXIS 2016-0 Yes Univers 800-26.6 mg 3-08 ity of per tablet 00:00: [place] [address] Medical Branch DUEXIS 2016-0 Yes Univers 800-26.6 mg 3-08 ity of per tablet 00:00: [place] [address] Medical Branch DUEXIS 2017-0 2022- No Univers 800-26.6 mg 3-08 12-12 ity of per tablet 00:00: 00:00 [place] 00 :00 Medical Branch DUEXIS 2017-0 2022- No Univers 800-26.6 mg 3-08 12-12 ity of per tablet 00:00: 00:00 [place] 00 :00 [facility] Immunizations Ordered Filled Immunization Date Status Comments [facility] e Immunization Name Name Pneumococcal 2021-11-12 Completed [place] o f Polysaccharide, 00:00:00 [facility] ical PPSV23 (PNEUMOVAX) Branch TDAP 2021-11-12 Completed [facility] 00:00:00 [facility] Pneumococcal 2021-11-12 Completed [place] o f Polysaccharide, 00:00:00 [facility] ical PPSV23 (PNEUMOVAX) Branch TDAP 2021-11-12 Completed [facility] 00:00:00 [facility] Pneumococcal 2021-11-12 Completed University o f Polysaccharide, 00:00:00 [place] [facility] ical PPSV23 (PNEUMOVAX) Branch TDAP 2021-11-12 Completed University of 00:00:00 [facility] Pneumococcal 2021-11-12 Completed University o f Polysaccharide, 00:00:00 [place] [facility] ical PPSV23 (PNEUMOVAX) Branch TDAP 2021-11-12 Completed University of 00:00:00 [facility] Pneumococcal 2021-11-12 Completed University o f Polysaccharide, 00:00:00 [place] [facility] ical PPSV23 (PNEUMOVAX) Branch TDAP 2021-11-12 Completed University of 00:00:00 [facility] SARS-COV-2 COVID-19 2020-06-16 Completed Unive rsity of PFIZER VACCINE 00:00:00 [facility] SARS-COV-2 COVID-19 2020-06-16 Completed Unive rsity of PFIZER VACCINE 00:00:00 [facility] SARS-COV-2 COVID-19 2020-06-16 Completed Unive rsity of PFIZER VACCINE 00:00:00 [facility] SARS-COV-2 COVID-19 2020-06-16 Completed Unive rsity of PFIZER VACCINE 00:00:00 [facility] SARS-COV-2 COVID-19 2020-06-16 Completed Unive rsity of PFIZER VACCINE 00:00:00 [facility] SARS-COV-2 COVID-19 2020-06-16 Completed Unive rsity of PFIZER VACCINE 00:00:00 [facility] SARS-COV-2 COVID-19 2020-06-16 Completed Unive rsity of PFIZER VACCINE 00:00:00 [facility] SARS-COV-2 COVID-19 2020-06-16 Completed Unive rsity of PFIZER VACCINE 00:00:00 [facility] SARS-COV-2 COVID-19 2020-06-16 Completed Unive rsity of PFIZER VACCINE 00:00:00 [facility] SARS-COV-2 COVID-19 2020-05-26 Completed Unive rsity of PFIZER VACCINE 00:00:00 [facility] SARS-COV-2 COVID-19 2020-05-26 Completed Unive rsity of PFIZER VACCINE 00:00:00 [facility] SARS-COV-2 COVID-19 2020-05-26 Completed Unive rsity of PFIZER VACCINE 00:00:00 [facility] SARS-COV-2 COVID-19 2020-05-26 Completed Unive rsity of PFIZER VACCINE 00:00:00 [facility] SARS-COV-2 COVID-19 2020-05-26 Completed Unive rsity of PFIZER VACCINE 00:00:00 [facility] SARS-COV-2 COVID-19 2020-05-26 Completed Unive rsity of PFIZER VACCINE 00:00:00 [facility] SARS-COV-2 COVID-19 2020-05-26 Completed Unive rsity of PFIZER VACCINE 00:00:00 [facility] SARS-COV-2 COVID-19 2020-05-26 Completed Unive rsity of PFIZER VACCINE 00:00:00 [facility] SARS-COV-2 COVID-19 2020-05-26 Completed Unive rsity of PFIZER VACCINE 00:00:00 [facility] Vital Signs Vital Name Observation Time Observation Value Comments Source Systolic blood 2022-01-27 21:08:00 138 mm[Hg] Univer sity of pressure [facility] Diastolic blood 2022-01-27 21:08:00 98 mm[Hg] Unive rsity of pressure [facility] Heart rate 2022-01-27 21:08:00 83 /min Universi ty [facility] Respiratory rate 2022-01-27 21:04:00 19 /min Univ ersity of [facility] Body height 2022-01-27 21:04:00 177.8 cm Universi ty [facility] Body weight 2022-01-27 21:04:00 81.738 kg Universi ty [facility] BMI 2022-01-27 21:04:00 25.86 kg/m2 Universi ty [facility] Systolic blood 2021-01-16 19:17:00 124 mm[Hg] Univer sity of pressure [facility] Diastolic blood 2021-01-16 19:17:00 75 mm[Hg] Unive rsity of pressure [facility] Heart rate 2021-01-16 19:17:00 82 /min Universi ty [facility] Body height 2021-01-16 19:17:00 177.8 cm [facility] Body weight 2021-01-16 19:17:00 88.451 kg [facility] BMI 2021-01-16 19:17:00 27.98 kg/m2 [facility] Procedures Procedure Date / Time Performing Clinician Source Performed AUTHORIZATION FOR 2022-02-06 06:01:00 Doctor Unassigned, No [facility] OF [facility] Name Medical Branch ASSIGNMENT OF BENEFITS 2022-01-27 20:48:13 Doctor Unassigned, No [facility] Name Medical Branch REFERRAL- 2021-12-23 06:01:00 Doctor Unassigned, No [facility] REQUEST/RESPONSE Name Medical [place] Encounters Start End Encounter Admission Attending Care Care Encounter Source Date/Time Date/Time Type Type Clinicians Facility Department ID 2021-03-13 Outpatient Bernabe, STLMLC STLMLC [id number] Common 14:03:11 [facility] [address] [facility] 2021-03-13 Outpatient Bernabe, STLMLC STLMLC [id number] Common 14:02:22 [facility] [address] [facility] 2021-03-13 Outpatient Bernabe, STLMLC STLMLC [id number] Common 13:34:00 [place] [id number] [facility] 2021-03-13 Outpatient Bernabe, STLMLC STLMLC [id number] Common 13:33:04 [facility] [address] [facility] 2021-03-13 Outpatient Bernabe, STLMLC STLMLC [id number] Common 13:29:32 [facility] [address] [facility] 2021-03-13 Outpatient Bernabe, STLMLC STLMLC [id number] Common 13:28:45 Yuan [id number] [facility] 2021-03-13 Outpatient Bernabe, STLMLC STLMLC [id number] Common 13:28:22 Yuan [id number] [facility] 2021-03-13 Outpatient Bernabe, STLMLC STLMLC [id number] Common 13:05:47 [place] [id number] [facility] 2021-03-13 Outpatient STLMLC STLMLC [id number] Common 12:46:43 [address] [facility] 2021-03-13 [facility] [id number] Common 12:42:18 [address] [facility] 2022-02-06 2022-02-06 Telephone Sammie [facility] [id number] Univers 00:00:00 00:00:00 [place] VELA [id number] it[id number] [phone] De dical NAL [address] [place] [address] 2022-02-06 2022-02-06 Orders Doctor HALLE [id number] Univers 00:00:00 00:00:00 Only Unassigned, JARAD [id number] ity of [place] [facility] [id number] Michael as [phone] [address] 2022-01-27 2022-01-27 [facility] [id number] Univers 15:00:00 15:27:19 SENDIL pepito [facility] 2022-01-27 2022-01-27 [facility] [id number] Univers 15:00:00 15:27:19 Visit Mickey VELA [id number] it[id number] [phone] De dicin NAL [address] [place] [address] 2022-01-27 2022-01-27 Orders Doctor HALLE [id number] Univers 00:00:00 00:00:00 Only Unassigned, JARAD [id number] ity of [place] [facility] [id number] Michael as [phone] [address] 2022-01-24 2022-01-24 Outpatient R [facility] [id number] Univers 14:00:00 14:00:00 SENDIL pepito [facility] 2021-12-23 2021-12-23 Orders Doctor HALLE [id number] Univers 00:00:00 00:00:00 Only Unassigned, JARAD [id number] ity of [place] [facility] [id number] Michael as [phone] [address] 2021-01-16 2021-01-16 Outpatient R JUSTINO [facility] [id number] Univers 13:45:00 23:59:00 JAG beyer [facility] 2021-01-16 2021-01-16 [facility] [id number] Univers 13:45:00 23:59:00 Encounter Jag [facility] [id number] ity of [place] [id number] Michael as CONRADO?BLEA [id number] De jennyscottie JACKMAN [address] [facility] OFFICE [facility] 2021-01-16 2021-01-16 Office [facility] [id number] Univers 13:05:09 13:56:23 Visit [facility] [id number] it y of [place] [id number] Michael as CONRADO?BLEA [phone] De silver JACKMAN 198 [facility] OFFICE [facility] 2021-01-16 2021-01-16 [facility] [id number] Univers 13:00:00 13:56:23 ROGE ramon [facility] 2020-10-15 2020-10-15 Office [facility] [id number] Univers 13:18:53 13:49:57 Visit [facility] [id number] it y of [place] [id number] Michael as Conrado?Blea [phone] De silver jackman [address] [facility] Office [facility] 2020-10-15 2020-10-15 Outpatient [facility] [id number] Univers 13:30:00 13:30:00 ROGE beyer [facility] 2020-10-10 2020-10-10 Telephone [facility] [id number] Univers 00:00:00 00:00:00 Roge Rain [facility] [id number] it y of [place] [id number] Michael as Conrado?Blea [phone] Me dical [address] Office [facility] 2020-09-27 2020-09-27 Outpatient R LEO [facility] [id number] Univers 08:00:00 08:00:[address] [facility] 2020-09-27 2020-09-27 Orders Doctor HALLE [id number] [id number] Univers 00:00:00 00:00:00 Only Unassigned, JARAD [id number] ity of [place] [facility] [id number] Michael as [phone] [address] 2020-09-27 2020-09-27 Telephone Leo [facility] [id number] Univers 00:00:00 00:00:00 Roge [place] [id number] i [id number] [phone] Me dical nal [address] [facility] 2020-08-29 2020-08-29 Telephone [facility] [id number] Univers 00:00:00 00:00:00 Jag [facility] [id number] it y of Surgical [id number] Michael as Specialti [phone] Me dical es [address] [facility] 2020-08-23 2020-08-23 Hospital [facility] [id number] Univers 12:03:53 23:59:00 Encounter [facility] [id number] ity of Surgical [id number] Michael as Specialti [phone] Me dical es [address] [facility] 2020-08-23 2020-08-23 Office [facility] 1.2.840.114 [id number] Univers 12:48:40 13:32:37 Visit Jag S Health [id number] it y of Surgical [id number] Michael as Specialti [phone] De dical es [address] [place] 2020-08-23 2020-08-23 Outpatient [facility] [id number] Univers 13:00:00 13:00:00 JAG ity [facility] 2020-08-23 2020-08-23 Hospital [facility] [id number] Univers 11:22:54 12:02:00 Encounter Jag Kim [place] [id number] ity of [place] [id number] [facility] [phone] [facility] 8[address] Branch 2020-08-15 2020-08-15 Orders Doctor HALLE [id number] [id number] Univers 00:00:00 00:00:00 Only Unassigned, JARAD [id number] ity of [place] [facility] [id number] Michael as [phone] [facility] 009 Branch 2020-06-16 2020-06-16 Outpatient [facility] [id number] Univers 14:10:00 14:10:00 GOYO ity [facility] 2020-05-26 2020-05-26 Outpatient [facility] [id number] Univers 14:05:00 [facility] This patient has no known results.
--- NOTE | 2022-03-06 20:08 | RAD REPORT ---
EXAM DESCRIPTION: RAD - Chest Pa And Lat (2 Views) - 03/06/2022 8:03 pm CLINICAL HISTORY: COUGH Chest pain. COMPARISON: Chest Single View dated 10/16/2021; Chest Single View dated 10/04/2015; Chest Single View dated 10/03/2015; CHEST PA AND LAT 2 VIEW dated 09/16/2012 TECHNIQUE: PA and lateral views of the chest were obtained. FINDINGS: The lungs are hyperexpanded compatible with COPD. The heart is upper limit of normal in si ze. No fracture or aggressive bony process. IMPRESSION: COPD without acute process identified.
[2022-03-06 20:40] LABS: SARS-COV-2 RT PCR NEGATIVE (NEGATIVE)
--- NOTE | 2022-03-06 21:35 | ER ---
Nurse's Notes [facility] Name: Ayden España Age: 61 yrs Sex: Male : 1960 Arrival Date: 03/06/2022 Time: 18:41 Bed 17 Private MD: Diagnosis: Acute serous otitis media, right ear;COPD/ Chronic obstructive pulmonary disease with (acute) exacerbation Presentation: 03/06 18:50 Chief complaint: Patient states: for 2 weeks has had sinus drip and stuffy nose, when iw Iay down I start coughing like crazy, today my nose started bleeding. Coronavirus screen: Client presents with at least one sign or symptom that may indicate coronavirus-19. Ebola Screen: Patient negative for fever greater than or equal to 101.5 degrees Fahrenheit, and additional compatible Ebola Virus Disease symptoms Patient denies exposure to infectious person. Patient denies travel to an Ebola-affected area in the 21 days before illness onset. No symptoms or risks identified at this time. Initial Sepsis Screen: Does the patient meet any 2 criteria? No. Patient's initial sepsis screen is negative. Does the patient have a suspected source of infection? No. Patient's initial sepsis screen is negative. Risk Assessment: Do you want to hurt yourself or someone else? Patient reports no desire to harm self or others. Onset of symptoms was February 19, 2022. 18:50 Method Of Arrival: Ambulatory iw 18:50 Acuity: MAVIS 3 iw Triage Assessment: 22:08 Pain: Also complains of. ha1 Historical: - Allergies: 18:52 NKDA; iw - Home Meds: 18:53 citalopram 20 mg oral tab once daily [Active]; Trazodone 20 mg Oral once daily iw [Active]; aspirin 81 mg Oral cap 1 cap once daily [Active]; - PMHx: 18:52 Anxiety; BAKERS CYST REMOVAL; Depression; GERD; iw - Immunization history:: Adult Immunizations Client reports receiving the 2nd dose of the Covid vaccine. - Social history:: Smoking status: Patient denies any tobacco usage or history of. Screenin:30 Abuse screen: Denies threats or abuse. Denies injuries from another. Nutritional ha1 screening: No deficits noted. Tuberculosis screening: No symptoms or risk factors identified. 19:30 [facility] ED Fall Risk Assessment (Adult) History of falling in the last 3 months, ha1 including since admission No falls in past 3 months (0 pts) Confusion or Disorientation No (0 pts) Intoxicated or Sedated No (0 pts) Impaired Gait No (0 pts) Mobility Assist Device Used No (0 pt) Altered Elimination No (0 pt) Score/Fall Risk Level 0 - 2 = Low Risk Oriented to surroundings, Maintained a safe environment, Educated pt \T\ family on fall prevention, incl call for assistance when getting out of bed. Assessment: 19:30 General: Appears uncomfortable, Behavior is calm, cooperative. Pain: Complains of pain ha1 in headache Pain does not radiate. Pain at worst was 7 out of 10 on a pain scale. Quality of pain is described as pressure, Alleviated by medications. Neuro: Level of Consciousness is awake, alert, obeys commands, Oriented to person, place, time, situation. Cardiovascular: Patient's skin is warm and dry. Respiratory: Reports cough that is non-productive, dry, Airway is patent Respiratory effort is even, unlabored, Respiratory pattern is regular, symmetrical, Breath sounds are clear bilaterally. GI: No signs and/or symptoms were reported involving the gastrointestinal system. Abdomen is flat, non-distended. : No signs and/or symptoms were reported regarding the genitourinary system. EENT: No deficits noted. No signs and/or symptoms were reported regarding the EENT system. Derm: Skin is pink, warm \T\ dry. Musculoskeletal: Circulation, motion, and sensation intact. Range of motion: intact in all extremities. 20:30 Reassessment: Patient and/or family updated on plan of care and expected duration. Pain ha1 level reassessed. Patient is alert, oriented x 3, equal unlabored respirations, skin warm/dry/pink. waiting on lab results. 21:30 Reassessment: Patient and/or family updated on plan of care and expected duration. Pain ha1 level reassessed. Patient is alert, oriented x 3, equal unlabored respirations, skin warm/dry/pink. Vital Signs: 18:50 BP 117 / 79; Pulse 87; Resp 16; Temp 98.1; Pulse Ox 99% on R/A; Weight 81.65 kg; Height iw 5 ft. 10 in. (177.80 cm); Pain 0/10; 19:30 BP 119 / 83; Pulse 82; Resp 16 S; Pulse Ox 98% on R/A; ha1 20:30 BP 121 / 84; Pulse 80; Resp 16 S; Pulse Ox 96% on R/A; ha1 21:30 BP 102 / 61; Pulse 67; Resp 15 S; Pulse Ox 96% on R/A; ha1 18:50 Body Mass Index 25.83 (81.65 kg, 177.80 cm) iw ED Course: 18:41 Patient arrived in ED. rg4 18:52 Triage completed. iw 18:52 Arm band placed on. iw 18:59 Tessy Curtis FNP-C is PHCP. snw 18:59 Carrington Rangel MD is Attending Physician. snw 19:02 Francisca Perez, ENE is Primary Nurse. ha1 19:07 Attending Physician role handed off by Carrington Rangel MD maicol 19:07 Toro Patel MD is Attending Physician. maicol 19:30 Patient has correct armband on for positive identification. Placed in gown. Bed in low ha1 position. Call light in reach. Side rails up X 1. Adult w/ patient. 19:52 Strep Sent. ha1 19:52 COVID-19/FLU A+B Sent. ha1 20:05 Chest Pa And Lat (2 Views) XRAY In Process Unspecified. EDMS 22:08 No provider procedures requiring assistance completed. Patient did not have IV access ha1 during this emergency room visit. Administered Medications: 20:50 Drug: Tussionex Pennkinetic ER (chlorpheniramine-hydrocodone) Suspension 5 ml Route: PO;ha1 20:50 Drug: Augmentin (Amoxicillin-Clavulanate) 875 mg Route: PO; ha1 20:50 Drug: predniSONE 40 mg Route: PO; ha1 20:50 Drug: Pepcid (famotidine) 20 mg Route: PO; ha1 21:00 Drug: Albuterol 2.5 mg Route: Inhalation; ha1 Medication: 18:53 VIS not applicable for this client. iw Outcome: 21:35 Discharge ordered by . snw 22:08 Discharged to home ambulatory, with family. ha1 22:08 Condition: stable 22:08 Discharge instructions given to patient, family, Instructed on discharge instructions, follow up and referral plans. medication usage, Demonstrated understanding of instructions, follow-up care, medications, Prescriptions given X 6 22:09 Patient left the ED. ha1 Signatures: Dispatcher [employer] EDToro Damon MD MD cha Waters, Shelly, [facility]-C [facility]-Geraw Charmaine Young, RN Kaitlyn Leonard rg4 Francisca Perez RN RN ha1
--- NOTE | 2022-03-06 21:36 | EDPHYS ---
Physician Documentation [facility] Name: Ayden España Age: 61 yrs Sex: Male : 1960 Arrival Date: 03/06/2022 Time: 18:41 Bed 17 Private MD: ED Physician Toro Patel HPI: 03/06 20:00 This 61 yrs old Male presents to ER via Ambulatory with complaints of Sinus Pain, Cough.snw 20:00 Onset: The symptoms/episode began/occurred acutely, 10 day(s) ago, and became worse. snw Severity of symptoms: At their worst the symptoms were moderate. Associated signs and symptoms: Pertinent positives: rhinorrhea, sore throat. The patient has not experienced similar symptoms in the past. The patient has not recently seen a physician. Historical: - Allergies: 18:52 NKDA; iw - Home Meds: 18:53 citalopram 20 mg oral tab once daily [Active]; Trazodone 20 mg Oral once daily iw [Active]; aspirin 81 mg Oral cap 1 cap once daily [Active]; - PMHx: 18:52 Anxiety; BAKERS CYST REMOVAL; Depression; GERD; iw - Immunization history:: Adult Immunizations Client reports receiving the 2nd dose of the Covid vaccine. - Social history:: Smoking status: Patient denies any tobacco usage or history of. ROS: 19:59 Eyes: Negative for injury, pain, redness, and discharge. snw 19:59 Neck: Negative for injury, pain, and swelling, Cardiovascular: Negative for chest pain, palpitations, and edema. 19:59 Abdomen/GI: Negative for abdominal pain, nausea, vomiting, diarrhea, and constipation, Back: Negative for injury and pain, : Negative for injury, bleeding, discharge, and swelling, MS/Extremity: Negative for injury and deformity, Skin: Negative for injury, rash, and discoloration, Neuro: Negative for headache, weakness, numbness, tingling, and seizure, Psych: Negative for depression, anxiety, suicide ideation, homicidal ideation, and hallucinations. 19:59 Constitutional: Positive for body aches, fatigue, malaise, poor PO intake. 19:59 ENT: Positive for rhinorrhea, sore throat. 19:59 Respiratory: Positive for cough, with no reported sputum. Exam: 19:57 Constitutional: This is a well developed, well nourished patient who is awake, alert, snw and in no acute distress. 19:57 Eyes: Pupils equal round and reactive to light, extra-ocular motions intact. Lids and lashes normal. Conjunctiva and sclera are non-icteric and not injected. Cornea within normal limits. Periorbital areas with no swelling, redness, or edema. 19:57 Neck: Trachea midline, no thyromegaly or masses palpated, and no cervical lymphadenopathy. Supple, full range of motion without nuchal rigidity, or vertebral point tenderness. No Meningismus. Chest/axilla: Normal chest wall appearance and motion. Nontender with no deformity. No lesions are appreciated. Cardiovascular: Regular rate and rhythm with a normal S1 and S2. No gallops, murmurs, or rubs. Normal PMI, no JVD. No pulse deficits. 19:57 Abdomen/GI: Soft, non-tender, with normal bowel sounds. No distension or tympany. No guarding or rebound. No evidence of tenderness throughout. Back: No spinal tenderness. No costovertebral tenderness. Full range of motion. Skin: Warm, dry with normal turgor. Normal color with no rashes, no lesions, and no evidence of cellulitis. MS/ Extremity: Pulses equal, no cyanosis. Neurovascular intact. Full, normal range of motion. Neuro: Awake and alert, GCS 15, oriented to person, place, time, and situation. Cranial nerves II-XII grossly intact. Motor strength 5/5 in all extremities. Sensory grossly intact. Cerebellar exam normal. Normal gait. Psych: Awake, alert, with orientation to person, place and time. Behavior, mood, and affect are within normal limits. 19:57 Head/face: Noted is tenderness, that is mild. 19:57 ENT: TM's: erythema, that is moderate, on the right, Nose: Nasal mucosa: Dried blood. edematous, erythematous, Mouth: is normal, Posterior pharynx: is normal, Voice: is normal. 19:57 Respiratory: the patient does not display signs of respiratory distress, Respirations: normal, Breath sounds: bronchial sounds, dry, bronchitic cough. Vital Signs: 18:50 BP 117 / 79; Pulse 87; Resp 16; Temp 98.1; Pulse Ox 99% on R/A; Weight 81.65 kg; Height iw 5 ft. 10 in. (177.80 cm); Pain 0/10; 19:30 BP 119 / 83; Pulse 82; Resp 16 S; Pulse Ox 98% on R/A; ha1 20:30 BP 121 / 84; Pulse 80; Resp 16 S; Pulse Ox 96% on R/A; ha1 21:30 BP 102 / 61; Pulse 67; Resp 15 S; Pulse Ox 96% on R/A; ha1 18:50 Body Mass Index 25.83 (81.65 kg, 177.80 cm) iw MDM: 19:07 Patient medically screened. maicol 21:36 Differential Diagnosis: Bronchitis Upper Respiratory Infection Sinusitis Pharyngitis snw Otitis Media Viral Syndrome Pneumonia. Data reviewed: vital signs, nurses notes. Data reviewed: lab test result(s), radiologic studies. Care significantly affected by the following chronic conditions: Chronic Obstructive Pulmonary Disease. Counseling: I had a detailed discussion with the patient and/or guardian regarding: the historical points, exam findings, and any diagnostic results supporting the discharge/admit diagnosis, lab results, radiology results, the need for outpatient follow up, to return to the emergency department if symptoms worsen or persist or if there are any questions or concerns that arise at home. Special discussion: Based on the history and exam findings, there is no indication for further emergent testing or inpatient evaluation. I discussed with the patient/guardian the need to see the primary care provider for further evaluation of the symptoms. 03/06 19:34 Order name: COVID-19/FLU A+B; Complete Time: 21:08 snw 03/06 19:34 Order name: Strep; Complete Time: 20:25 snw 03/06 19:34 Order name: Chest Pa And Lat (2 Views) XRAY; Complete Time: 20:11 snw 03/06 20:18 Order name: Throat Culture EDMS Administered Medications: 20:50 Drug: Tussionex Pennkinetic ER (chlorpheniramine-hydrocodone) Suspension 5 ml Route: PO;ha1 20:50 Drug: Augmentin (Amoxicillin-Clavulanate) 875 mg Route: PO; ha1 20:50 Drug: predniSONE 40 mg Route: PO; ha1 20:50 Drug: Pepcid (famotidine) 20 mg Route: PO; ha1 21:00 Drug: Albuterol 2.5 mg Route: Inhalation; ha1 Disposition Summary: 03/06/22 21:35 Discharge Ordered Location: Home snw Condition: Stable snw Diagnosis - Acute serous otitis media, right ear snw - COPD/ Chronic obstructive pulmonary disease with (acute) exacerbation snw Followup: snw - With: Emergency Department - When: As needed - Reason: Worsening of condition Followup: snw - With: Private Physician - When: 5 - 6 days - Reason: Recheck today's complaints, Continuance of care, Re-evaluation by your physician Discharge Instructions: - Discharge Summary Sheet snw - Otitis Media, Adult snw - Chronic Obstructive Pulmonary Disease Exacerbation snw - Aspirin and Your Heart snw Forms: - Medication Reconciliation Form snw - Thank You Letter snw - Antibiotic Education snw - Prescription Opioid Use snw Prescriptions: - Augmentin 875-125 mg Oral Tablet - take 1 tablet by ORAL route every 12 hours for 10 days; 20 tablet; Refills: 0, snw Product Selection Permitted - albuterol sulfate 90 mcg/actuation Inhalation HFA aerosol inhaler - inhale 2 puff by INHALATION route every 4-6 hours; 1 vial; Refills: 0, Product snw Selection Permitted - Zyrtec 10 mg Oral Tablet - take 1 tablet by ORAL route once daily As needed; 20 tablet; Refills: 0, snw Product Selection Permitted - Tessalon Perles 100 mg Oral Capsule - take 1 capsule by ORAL route every 8 hours As needed; 15 capsule; Refills: 0, snw Product Selection Permitted - Prednisone 20 mg Oral Tablet - take 2 tablets by ORAL route once daily for 5 days; 10 tablet; Refills: 0, snw Product Selection Permitted - Pepcid 20 mg Oral Tablet - take 1 tablet by ORAL route once daily; 20 tablet; Refills: 0, Product snw Selection Permitted Signatures: Dispatcher [employer] Toro Larkin MD MD cha Waters, Shelly, SQUEEGEE OPERATOR-C SQUEEGEE OPERATOR-Csnw Charmaine Young RN RN iw Ayala, Heidy, RN RN ha1
[2022-03-06] MEDS ORDERED: AMOX/K CLAV 875 MG TAB ONE (21:46)
[2022-03-06] MEDS ORDERED: HYDROCODONE/CHLORPHEN 5 ML/OSYR ONE (21:47)
[2022-03-06] MEDS ORDERED: predniSONE 20 MG TAB ONE (21:47)
[2022-03-06] MEDS ORDERED: FAMOTIDINE 20 MG TAB ONE (21:48)
[2022-03-06] MEDS ORDERED: ALBUTEROL 2.5 MG/3 ML NEB SOL ONE (21:48)
[2022-03-06 22:20] VITALS: TEMP 98.1
[2022-03-06 22:22] VITALS: O2SAT 96
[2022-03-06 22:24] VITALS: BP 102/61
== END 2022-03-06 22:09 | disposition home or self-care (01) ==
LOC: ER 18:39
DX: J44.1 Chronic obstructive pulmonary disease with (acute) exacerbation (principal); H65.01 Acute serous otitis media, right ear; F41.9 Anxiety disorder, unspecified; F32.A Depression, unspecified; K21.9 Gastro-esophageal reflux disease without esophagitis; Z20.822 Contact with and (suspected) exposure to COVID-19
CPT/HCPCS: 87070; 87081; 0240U; 71046; J7512; J7613

== ENCOUNTER 2023-01-10 20:19 | Emergency (ER) | payer OTHER ==
--- OUTSIDE RECORDS SUMMARY | 2023-01-10 20:36 | XMS REPORT | Continuity of Care Document ---
:1960 Author Organization [facility] t Address [address] [place] [address]. [address] [place] [id number] Care Team Providers Name Role Phone PCP, PATIENT DOES NOT HAVE A Primary Care Physician UnavailKleber Díaz Attending Clinician Unavailable MICKEY COCHRAN K.HClark Attending Clinician Unavailable Mickey Cochran MD K.HClark Attending Clinician Doctor Unassigned, [place] Attending Clinician Unavailable JAG BADILLO Attending Clinician Unavailable Jag Corey Attending Clinician Roge Regan MD Attending Clinician ROGE REGAN Attending Clinician Unavailable GOYO PARRISH Attending Clinician Unavailable Payers Payer Name Policy Type Policy Number Effective Date Expiration Date S zuleyka [facility] [id number] 2022 00:00:00 [facility] [id number] 2021 00:00:00 Problems Condition Condition Condition Status Onset Resolution Last Treating Co mments Source Name Details Category Date Date Treatment Clinician Date Hand pain, Hand pain, Disease Active 2017-0 U nivers left left 5-10 ity of 00:00: [address] Allergies, Adverse Reactions, Alerts Allergy Allergy Status Severity Reaction(s) Onset Inactive Treating Comm ents Source Name Type Date Date Clinician NO KNOWN Drug Active Univers ALLERGIE Class ity of S [facility] Social History Social Habit Start Date Stop Date Quantity Comments Source History of Chews Tobacco University of tobacco use [facility] Exposure to 2022-01-17 2022-01-27 Not sure University SARS-CoV-2 00:00:00 14:47:00 [facility] (event) Branch Alcohol intake 2022-01-27 2022-01-27 Current drinker Homae rsity of 00:00:00 00:00:00 of alcohol [facility] (finding) [place] Tobacco use and 2012-12-24 2012-12-24 User of smokeless Un iversity of exposure 00:00:00 00:00:00 tobacco [facility] Sex Ass[birth year] At [birth year] Universit y of 00:00:00 00:00:00 [facility] Smoking Status Start Date Stop Date Source Never smoked tobacco [facility] Medications Ordered Filled Start Stop Current Ordering Indication Dosage Frequency Signature Comments Components Source Medication Medication Date Date Medication? Clinician (SIG) Name Name aspirin 81 2021-02- No 81mg Take 81 mg Univers mg chewable 03-30 by mouth ity of tablet 15:06: 00:00 daily. [place] 22 :00 [facility] aspirin 81 2021-02- No 81mg Take 81 mg Univers mg chewable 03-30 by mouth ity of tablet 15:06: 00:00 daily. [place] 22 :00 [facility] OMEPRAZOLE 2021-02- No Take by Uni vers ORAL 2-12 12-12 mouth. ity of 15:06: 00:00 [place] 13 :00 [facility] OMEPRAZOLE 2021-02- No Take by Uni vers ORAL 2-12 12-12 mouth. ity of 15:06: 00:00 [place] 13 :00 [facility] traZODone 0 Yes 50mg 50 mg. Univer s 50 mg 9-27 ity of tablet 00:00: [facility] Branch traZODone 2021-0 Yes 50mg 50 mg. Univer s 50 mg 9-27 ity of tablet 00:00: [facility] Branch traZODone 2021-0 Yes 50mg 50 mg. Univer s 50 mg 9-27 ity of tablet 00:00: [place] [facility] traZODone 2021-0 Yes 50mg 50 mg. Univer s 50 mg 9-27 ity of tablet 00:00: [place] [facility] traZODone 2021-0 Yes 50mg 50 mg. Univer s 50 mg 9-27 ity of tablet 00:00: [place] 00 Medical Branch traZODone 2021-0 Yes 50mg 50 mg. Univer s 50 mg 9-27 ity of tablet 00:00: Medical Branch traZODone 2021-0 Yes 50mg 50 mg. Univer s 50 mg 9-27 ity of tablet 00:00: Medical Branch traZODone 2021-0 Yes 50mg 50 mg. Univer s 50 mg 9-27 ity of tablet 00:00: [place] [facility] diclofenac 2020-02 Yes [id number] 75mg Take 1 Univers 75 mg EC 2-01 tablet by ity of tablet 00:00: mouth [place] (two) Medical times Branch daily with meals. diclofenac 2020-02 Yes [id number] 75mg Take 1 Univers 75 mg EC 2-01 tablet by ity of tablet 00:00: mouth 2 [place] (two) Medical times Branch daily with meals. diclofenac 2020-02 Yes [id number] 75mg Take 1 Univers 75 mg EC 2-01 tablet by ity of tablet 00:00: [facility] [place] (two) Medical times Branch daily with meals. diclofenac 2020-02 Yes [id number] 75mg Take 1 Univers 75 mg EC 2-01 tablet by ity of tablet 00:00: [facility] [place] (two) Medical times Branch daily with meals. diclofenac 2020-02- No [id number] 75mg Take 1 Univers 75 mg EC 2-01 12-12 tablet by ity o f tablet 00:00: 00:00 mouth 2 [place] 00 :00 (two) Medical times Branch daily with meals. diclofenac 2020-02- No [id number] 75mg Take 1 Univers 75 mg EC 2-01 12-12 tablet by ity o f tablet 00:00: 00:00 [facility] 2 [place] 00 :00 (two) Medical times Branch daily with meals. diclofenac Yes [id number] 75mg Take 1 Univers 75 mg EC 8-30 9102 tablet by ity of tablet 00:00: mouth [place] (two) Medical times Branch daily with meals. diclofenac Yes [id number] 75mg Take 1 Univers 75 mg EC 8-30 9102 tablet by ity of tablet 00:00: mouth 2 [place] (two) Medical times Branch daily with meals. diclofenac 2021-0 Yes [id number] 75mg Take 1 Univers 75 mg EC 8-30 9102 tablet by ity of tablet 00:00: mouth 2 [place] 00 (two) Medical times Branch daily with meals. diclofenac 0 Yes [id number] 75mg Take 1 Univers 75 mg EC 8-30 9102 tablet by ity of tablet 00:00: mouth 2 [place] 00 (two) Medical times Branch daily with meals. diclofenac 0 2- No [id number] 75mg Take 1 Univers 75 mg EC 8-30 12-12 9102 tablet by ity o f tablet 00:00: 00:00 mouth 2 [place] 00 :00 (two) Medical times Branch daily with meals. diclofenac 2021- No [id number] 75mg Take 1 Univers 75 mg EC 8-30 12-12 9102 tablet by ity o f tablet 00:00: 00:00 mouth 2 [place] 00 :00 (two) Medical times Branch daily with meals. CITALOPRAM Yes Take by [facility] ers HYDROBROMID 7-08 mouth. ity of E 12:54: [place] (CITALOPRAM 25 Medical ORAL) Branch OMEPRAZOLE 0 Yes Take by [facility] ers ORAL 7-08 mouth. ity of 12:54: [address] aspirin 81 0 Yes 81mg Take 81 mg U nivers mg chewable 7-08 by mouth ity of tablet 12:54: daily. [address] CITALOPRAM 0 Yes Take by [facility] ers HYDROBROMID 7-08 mouth. ity of E 12:54: [place] (CITALOPRAM 25 Medical ORAL) Branch OMEPRAZOLE 0 Yes Take by [facility] ers ORAL 7-08 mouth. ity of 12:54: [address] aspirin 81 2020-0 Yes 81mg Take 81 mg U nivers mg chewable 7-08 by mouth ity of tablet 12:54: daily. [address] Branch CITALOPRAM 2020-0 Yes Take by [facility] ers HYDROBROMID 7-08 mouth. ity of E 12:54: [place] (CITALOPRAM 25 Medical ORAL) Branch OMEPRAZOLE 2020-0 Yes Take by [facility] ers ORAL 7-08 mouth. ity of 12:54: [address] aspirin 81 2020-0 Yes 81mg Take 81 mg U nivers mg chewable 7-08 by mouth ity of tablet 12:54: daily. [address] CITALOPRAM Yes Take by [facility] ers HYDROBROMID 7-08 mouth. ity of E 12:54: [place] (CITALOPRAM 25 Medical ORAL) Branch OMEPRAZOLE Yes Take by [facility] ers ORAL 7-08 mouth. ity of 12:54: [address] aspirin 81 Yes 81mg Take 81 mg U nivers mg chewable 7-08 by mouth ity of tablet 12:54: daily. [address] Branch CITALOPRAM Yes Take by [facility] ers HYDROBROMID 7-08 mouth. ity of E 12:54: [place] (CITALOPRAM 25 Medical ORAL) Branch CITALOPRAM Yes Take by [facility] ers HYDROBROMID 7-08 mouth. ity of E 12:54: [place] (CITALOPRAM 25 Medical ORAL) Branch CITALOPRAM Yes Take by [facility] ers HYDROBROMID 7-08 mouth. ity of E 12:54: [place] (CITALOPRAM 25 Medical ORAL) Branch CITALOPRAM Yes Take by [facility] ers HYDROBROMID 7-08 mouth. ity of E 12:54: [place] (CITALOPRAM 25 Medical ORAL) Branch CITALOPRAM Yes Take by [facility] ers HYDROBROMID 7-08 mouth. ity of E 12:54: [place] (CITALOPRAM 25 Medical ORAL) Branch CITALOPRAM Yes Take by [facility] ers HYDROBROMID 7-08 mouth. ity of E 12:54: [place] (CITALOPRAM 25 Medical ORAL) Branch CITALOPRAM Yes Take by [facility] ers HYDROBROMID 7-08 mouth. ity of E 12:54: [place] (CITALOPRAM 25 Medical ORAL) Branch CITALOPRAM Yes Take by [facility] ers HYDROBROMID 7-08 mouth. ity of E 12:54: [place] (CITALOPRAM 25 Medical ORAL) Branch DUEXIS Yes Univers 800-26.6 mg 3-08 ity of per tablet 00:00: Medical Branch DUEXIS Yes Univers 800-26.6 mg 3-08 ity of per tablet 00:00: [place] [facility] DUEXIS 0 Yes Univers 800-26.6 mg 3-08 ity of per tablet 00:00: [place] 00 Medical Branch DUEXIS 2016- Yes Univers 800-26.6 mg 3-08 ity of per tablet 00:00: [place] 00 Medical Branch DUEXIS 2016-0 2- No Univers 800-26.6 mg 3-08 12 ity of per tablet 00:00: 00:00 [place] 00 :00 Medical Branch DUEXIS 2016-0 2- No Univers 800-26.6 mg 3-08 12 ity of per tablet 00:00: 00:00 [place] 00 :00 Medical Branch Vital Signs Vital Name Observation Time Observation Value Comments Source Systolic blood 2022-08-20 16:36:00 129 mm[Hg] Univer sity of pressure [facility] Diastolic blood 2022-08-20 16:36:00 85 mm[Hg] Unive rsity of pressure [facility] Heart rate 2022-08-20 16:36:00 65 /min Universi ty of [facility] Body height 2022-08-20 16:36:00 177.8 cm Universi ty of [facility] Body weight 2022-08-20 16:36:00 82.419 kg Universi ty of [facility] BMI 2022-08-20 16:36:00 26.07 kg/m2 Universi ty [facility] Oxygen saturation in 2022-08-20 16:36:00 97 /min [facility] Arterial blood by [facility] Pulse oximetry Branch Systolic blood 2022-01-27 21:08:00 138 mm[Hg] Univer sity of [facility] Diastolic blood 2022-01-27 21:08:00 98 mm[Hg] Unive rsity of pressure [facility] Heart rate 2022-01-27 21:08:00 83 /min Universi ty of [facility] Respiratory rate 2022-01-27 21:04:00 19 /min Univ ersity of [facility] Body height 2022-01-27 21:04:00 177.8 cm Universi ty of [facility] Body weight 2022-01-27 21:04:00 81.738 kg Universi ty of [facility] BMI 2022-01-27 21:04:00 25.86 kg/m2 Universi ty of [place] [facility] Systolic blood 2021-01-16 19:17:00 124 mm[Hg] Univer sity of pressure [facility] Diastolic blood 2021-01-16 19:17:00 75 mm[Hg] Unive rsity of pressure [facility] Heart rate 2021-01-16 19:17:00 82 /min [facility] Body height 2021-01-16 19:17:00 177.8 cm [facility] Body weight 2021-01-16 19:17:00 88.451 kg [facility] BMI 2021-01-16 19:17:00 27.98 kg/m2 [facility] Procedures Procedure Date / Time Performing Clinician Source Performed [facility] PATIENT FINANCIAL 2022-08-20 16:12:29 Doctor Unassigned, No [facility] POLICY Name Medical Branch AUTHORIZATION FOR 2022-02-06 06:01:00 Doctor Unassigned, No [facility] RELEASE OF [facility] Medical Branch ASSIGNMENT OF BENEFITS 2022-01-27 20:48:13 Doctor Unassigned, No [facility] Medical Branch REFERRAL- 2021-12-23 06:01:00 Doctor Unassigned, No [facility] REQUEST/RESPONSE [facility] Encounters Start End Encounter Admission Attending Care Care Encounter Source Date/Time Date/Time Type Type Clinicians Facility Department ID 2021-03-13 Outpatient Bernabe, STLMLC STLMLC [id number] Common 14:03:11 [facility] [id number] [facility] 2021-03-13 Outpatient Bernabe, STLMLC STLMLC [id number] Common 14:02:22 [facility] 88038 [facility] 2021-03-13 Outpatient Bernabe, STLMLC STLMLC [id number] Common 13:34:00 Kle[place] [id number] [facility] 2021-03-13 Outpatient Bernabe, STLMLC STLMLC [id number] Common 13:33:04 Kleber [id number] [facility] 2021-03-13 Outpatient Bernabe, STLMLC STLMLC [id number] Common 13:29:32 [facility] 28740 [facility] 2021-03-13 Outpatient Bernabe, STLMLC STLMLC [id number] Common 13:28:45 Kle[place] [id number] [facility] 2021-03-13 Outpatient Bernabe, STLMLC STLMLC [id number] Common 13:28:22 Kleber [id number] [facility] 2021-03-13 Outpatient Bernabe, STLMLC STLMLC [id number] Common 13:05:47 Kleber [id number] [facility] 2021-03-13 Outpatient STLMLC STLC [id number] Common 12:46:43 [id number] [facility] 2021-03-13 Outpatient [facility] [id number] Common 12:42:18 [id number] [facility] 2023-08-21 2023-08-21 Outpatient R SAMMIE [facility] [id number] Univers 09:00:00 09:00:[address] [facility] 2022-08-20 2022-08-20 Outpatient R SAMMIE [facility] [id number] Univers 11:30:00 12:04:39 SENDIL [facility] 2022-08-20 2022-08-20 [facility] [id number] Univers 11:30:00 12:04:39 Visit Mickey VELA [id number] ity [id number] [phone] In dical [facility] 059 [facility] 2022-08-20 2022-08-20 Orders Doctor HALLE [id number] [id number] Univers 00:00:00 00:00:00 Only Unassigned, JARAD [id number] ity of [place] [facility] [id number] Michael as [phone] [address] 2022-02-06 2022-02-06 Telephone Sammie [facility] [id number] Univers 00:00:00 00:00:00 Sendleah VELA [id number] it[id number] [phone] In dical NAL 9 [facility] 2022-02-06 2022-02-06 Orders Doctor HALLE [id number] [id number] Univers 00:00:00 00:00:00 Only Unassigned, JARAD [id number] ity of [place] [facility] [id number] Michael as [phone] [address] 2022-01-27 2022-01-27 Outpatient R SAMMIE [facility] [id number] Univers 15:00:00 15:27:19 [facility]22-[facility]-27 2022-01-27 Office Sammie [facility] [id number] Univers 15:00:00 15:27:19 Visit Sendil Blair VELA [id number] ity [id number] [phone] [address] 2022-01-27 2022-01-27 Orders Doctor HALLE 1.2.840.114 [id number] Univers 00:00:00 00:00:00 Only Unassigned, JARAD [id number] ity of [place] [facility] [id number] Michael as [phone] [address] 2022-01-24 2022-01-24 Outpatient R SAMMIE [facility] [id number] Univers 14:00:00 14:00:[address] [facility] 2021-12-23 2021-12-23 Orders Doctor HALLE 1.2.840.114 [id number] Univers 00:00:00 00:00:00 Only Unassigned, JARAD [id number] ity of [place] [facility] [id number] Michael as [phone] [address] 2021-01-16 2021-01-16 Outpatient R JUSTINO [facility] [id number] Univers 13:45:00 23:59:[address] [facility] 2021-01-16 2021-01-16 [facility] 1.2.840.114 [id number] Univers 13:45:00 23:59:00 Encounter Jag Kim HEALTH [id number] ity of [place] [id number] Michael as CONRADO?BLEA [phone] Me silver JACKMAN 809 [facility] OFFICE [facility] 2021-01-16 2021-01-16 Office [facility] [id number] Univers 13:05:09 13:56:23 Visit Roge MOISE [id number] it y of [place] [id number] Michael as CONRADO?BLEA [phone] In silver JACKMNA 198 [facility] OFFICE [facility] 2021-01-16 2021-01-16 Out[facility] [id number] Univers 13:00:00 13:56:[address] [facility] 2020-10-15 2020-10-15 Office [facility] [id number] Univers 13:18:53 13:49:57 Visit Roge Rain [facility] [id number] it y of [place] [id number] Michael as Conrado?Blea [phone] In silver jackman 198 [facility] Office [facility] 2020-10-15 2020-10-15 Outpatient [facility] [id number] Univers 13:30:00 13:30:[address] [facility] 2020-10-10 2020-10-10 Telephone [facility] 1.2.840.114 [id number] Univers 00:00:00 00:00:00 Roge Rain [place] [id number] it y of [place] [id number] Michael as Conrado?Blea [phone] In silver jackman 198 [facility] Office [facility] 2020-09-27 2020-09-27 Outpatient [facility] [id number] Univers 08:00:00 08:00:[address] [facility] 2020-09-27 2020-09-27 Orders Doctor HALLE 1.2.840.114 [id number] Univers 00:00:00 00:00:00 Only Unassigned, JARAD [id number] ity of [place] [facility] [id number] Michael as [phone] [address] 2020-09-27 2020-09-27 Telephone [facility] 1.2.840.114 [id number] Univers 00:00:00 00:00:00 Roge Vela [id number] i ty [place] [phone] Me dical nal 198 [facility] 2020-08-29 2020-08-29 Telephone [facility] [id number] Univers 00:00:00 00:00:00 Jag S Health [id number] it y of Surgical [id number] Michael as Specialti [phone] Me dical es 198 [facility] 2020-08-23 2020-08-23 [facility] 1.2.840.114 [id number] Univers 12:03:53 23:59:00 Encounter Jag S Health [id number] ity of Surgical [id number] Michael as Specialti [phone] Me dical es 809 [facility] 2020-08-23 2020-08-23 Office [facility] 1.2.840.114 [id number] Univers 12:48:40 13:32:37 Visit Jag S Health [id number] it y of Surgical [id number] Michael as Specialti [phone] Me dical es 198 [facility] 2020-08-23 2020-08-23 Out[facility] [id number] Univers 13:00:00 13:00:00 JAG ity of [facility] 2020-08-23 2020-08-23 [facility] 1.2.840.114 [id number] Univers 11:22:54 12:02:00 Encounter Jag Vela [id number] ity of [place] [id number] [facility] [phone] [facility] 807 Branch 2020-08-15 2020-08-15 Orders Doctor HALLE 1.2.840.114 [id number] Univers 00:00:00 00:00:00 Only Unassigned, JARAD [id number] ity of [place] [facility] [id number] Michael [phone] [facility] 009 Branch 2020-06-16 2020-06-[address] [facility] [id number] Univers 14:10:00 14:10:[address] [facility] 2020-05-26 2020-05-26 Outpatient [facility] [id number] Univers 14:05:00 14:05:00 [facility] Results This patient has no known results.
--- NOTE | 2023-01-10 21:17 | RAD REPORT ---
EXAM DESCRIPTION: CT - Thorax Wo Con CLINICAL HISTORY: Chest pain CHEST PAIN COMPARISON: Abdomen Wo Contrast dated 01/10/2023 FINDINGS: CT chest/CT abdomen without contrast The lungs are clear. No pleural thickening or pleural effusion. No pneumothorax. No axillary, mediastinal or hilar adenopathy. Nondisplaced right lateral eighth and ninth rib fractures noted. No gross upper abdominal finding. All CT scans are performed using dose optimization technique as appropriate and may include automated exposure control or mA/KV adjustment according to patient size. IMPRESSION: Nondisplaced right lateral eighth and ninth rib fractures noted.No pneumothorax or upper abdominal abnormality of concern evident.
--- NOTE | 2023-01-10 21:39 | ER ---
Nurse's Notes [facility] Name: Ayden España Age: 62 yrs Sex: Male : 1960 Arrival Date: 01/10/2023 Time: 20:19 Bed 10 Private MD: Diagnosis: Multiple fractures of ribs, right side Presentation: 01/10 20:32 Chief complaint: Patient states: That he slipped getting out of shower today and landed cm10 on his right ribs. Pt denies hitting his head, no LOC. Coronavirus screen: Vaccine status: Patient reports receiving the 2nd dose of the covid vaccine. Client denies travel out of the [place] in the last 14 days. Ebola Screen: Patient denies travel to an Ebola-affected area in the 21 days before illness onset. No symptoms or risks identified at this time. Initial Sepsis Screen: Does the patient meet any 2 criteria? No. Patient's initial sepsis screen is negative. Does the patient have a suspected source of infection? No. Patient's initial sepsis screen is negative. Risk Assessment: Do you want to hurt yourself or someone else? Patient reports no desire to harm self or others. Onset of symptoms was January 10, 2023. 20:32 Method Of Arrival: Ambulatory cm10 20:32 Acuity: MAVIS 3 cm10 Historical: - Allergies: 20:34 NKDA; cm10 - PMHx: 20:34 Anxiety; BAKERS CYST REMOVAL; Depression; GERD; cm10 - Immunization history:: Adult Immunizations unknown. - Social history:: Smoking status: Patient denies any tobacco usage or history of. Smoking status: Patient reports use of chewing tobacco. Screenin:13 [facility] ED Fall Risk Assessment (Adult) History of falling in the last 3 months, pf1 including since admission Yes- single mechanical fall (1 pt) Confusion or Disorientation No (0 pts) Intoxicated or Sedated No (0 pts) Impaired Gait No (0 pts) Mobility Assist Device Used No (0 pt) Altered Elimination No (0 pt) Score/Fall Risk Level 0 - 2 = Low Risk Oriented to surroundings, Maintained a safe environment, Educated pt \T\ family on fall prevention, incl call for assistance when getting out of bed, Assessed \T\ reinforced patient's understanding of fall precautions, Provided non-skid footwear, Hourly rounding (assess needs \T\ fall precautionary measures) done, Used ambulatory aids as needed (educated on \T\ assisted with), Used gait belt as appropriate. Abuse screen: Denies threats or abuse. Nutritional screening: No deficits noted. Tuberculosis screening: No symptoms or risk factors identified. Assessment: 21:42 General: Appears in no apparent distress. uncomfortable, well groomed, well developed, pf1 Behavior is calm, cooperative, appropriate for age, quiet. 21:42 Pain: Complains of pain in right lateral anterior chest Pain currently is 7 out of 10 pf1 on a pain scale. Neuro: No deficits noted. Level of Consciousness is awake, alert, obeys commands, Oriented to person, place, time, situation. Cardiovascular: No deficits noted. Capillary refill < 3 seconds Patient's skin is warm and dry. Respiratory: Airway is patent Respiratory effort is even, unlabored, Respiratory pattern is regular, symmetrical. GI: No deficits noted. No signs and/or symptoms were reported involving the gastrointestinal system. : No deficits noted. No signs and/or symptoms were reported regarding the genitourinary system. EENT: No deficits noted. No signs and/or symptoms were reported regarding the EENT system. Derm:. Musculoskeletal: Reports pain in right lateral anterior chest. Vital Signs: 20:32 BP 124 / 91; Pulse 74; Resp 18; Temp 98; Pulse Ox 100% on R/A; Weight 81.65 kg; Height cm10 5 ft. 9 in. ; Pain 8/10; 22:00 BP 118 / 78; Pulse 68; Resp 16; Pulse Ox 99% ; Pain 7/10; pf1 20:32 Body Mass Index 26.58 (81.65 kg, 175.26 cm) cm10 20:32 Pain Scale: Adult cm10 22:00 Pain Scale: Adult pf1 ED Course: 20:24 Patient arrived in ED. gm2 20:24 [facility] kb 20:24 Viral Mariano MD is Attending Physician. kb 20:34 Triage completed. cm10 20:35 Arm band placed on Patient placed in waiting room. cm10 21:00 Abdomen Wo Contrast In Process Unspecified. EDMS 21:01 CT Chest Wo Con In Process Unspecified. EDMS 21:45 Patient has correct armband on for positive identification. Bed in low position. Call pf1 light in reach. 22:11 No provider procedures requiring assistance completed. Patient did not have IV access pf1 during this emergency room visit. 22:14 Provided Education on: prescription . pf1 Administered Medications: 21:55 Drug: Ketorolac IM 30 mg IM once Route: IM; Site: right gluteus; pf1 22:13 Follow up: Response: No adverse reaction; Marked relief of symptoms pf1 Medication: 22:15 VIS not applicable for this client. pf1 Outcome: 21:39 Discharge ordered by . scooter 22:14 Discharged to home ambulatory, pf1 22:14 Condition: stable 22:14 Discharge instructions given to patient, Instructed on discharge instructions, follow up and referral plans. Demonstrated understanding of instructions, follow-up care, medications, Prescriptions given X 1, 22:15 Patient left the ED. pf1 Signatures: Dispatcher [employer] EDMS Dipti Odonnell, PRETTYC DOMENICO-Melonie Alcazar RN RN pf1 Mariza Larios RN RN cm10 Sadaf Desouza 2
--- NOTE | 2023-01-10 21:39 | EDPHYS ---
Physician Documentation [facility] Name: Ayden España Age: 62 yrs Sex: Male : 1960 Arrival Date: 01/10/2023 Time: 20:19 Bed 10 Private MD: ED Physician Viral Mariano HPI: 01/10 21:37 This 62 yrs old Male presents to ER via Ambulatory with complaints of Fall Injury. kb 21:37 Patient is a 62-year-old male who slipped getting out of the tub and fell hitting his kb right lateral ribs on the edge of the tub 1 hour prior to arrival. Complains of pain to lateral right ribs only. Denies any other injuries.. Historical: - Allergies: 20:34 NKDA; cm10 - PMHx: 20:34 Anxiety; BAKERS CYST REMOVAL; Depression; GERD; cm10 - Immunization history:: Adult Immunizations unknown. - Social history:: Smoking status: Patient denies any tobacco usage or history of. Smoking status: Patient reports use of chewing tobacco. ROS: 21:37 Constitutional: Negative for fever, chills, and weight loss, kb 21:37 Cardiovascular: Positive for chest pain, with movement, of the right lateral anterior chest, 21:37 All other systems are negative, Exam: 21:37 Constitutional: This is a well developed, well nourished patient who is awake, alert, kb and in no acute distress. Head/Face: Normocephalic, atraumatic. ENT: Moist Mucous membranes Cardiovascular: Regular rate Respiratory: Respirations even and unlabored. No increased work of breathing. Talking in full sentences Abdomen/GI: Soft, non-tender. No distention Skin: Warm, dry with normal turgor. Normal color. MS/ Extremity: Pulses equal, no cyanosis. Neurovascular intact. Full, normal range of motion. Neuro: Awake and alert, GCS 15, oriented to person, place, time, and situation. Moves all extremities. Normal gait. 21:37 Chest/axilla: Inspection: normal, Palpation: tenderness, that is moderate, of the right lateral anterior chest, that totally reproduces the patient's complaints, Vital Signs: 20:32 BP 124 / 91; Pulse 74; Resp 18; Temp 98; Pulse Ox 100% on R/A; Weight 81.65 kg; Height cm10 5 ft. 9 in. ; Pain 8/10; 22:00 BP 118 / 78; Pulse 68; Resp 16; Pulse Ox 99% ; Pain 7/10; pf1 20:32 Body Mass Index 26.58 (81.65 kg, 175.26 cm) cm10 20:32 Pain Scale: Adult cm10 22:00 Pain Scale: Adult pf1 MDM: 20:24 Patient medically screened. kb 21:38 Differential diagnosis: closed head injury, contusion, fracture. Data reviewed: vital kb signs, nurses notes. Counseling: I had a detailed discussion with the patient and/or guardian regarding the historical points, exam findings, and any diagnostic results supporting the discharge/admit diagnosis, radiology results, the need for outpatient follow up, a family practitioner, to return to the emergency department if symptoms worsen or persist or if there are any questions or concerns that arise at home. ED course: CT reveals nondisplaced fractures of ribs 8 and 9 on right side. Discussed results with patient. Discussed pain management and need for follow-up. Verbal understanding received.. 01/10 20:34 Order name: CT Chest Wo Con; Complete Time: 21:21 kb 01/10 21:00 Order name: Abdomen Wo Contrast EDMS Administered Medications: 21:55 Drug: Ketorolac IM 30 mg IM once Route: IM; Site: right gluteus; pf1 22:13 Follow up: Response: No adverse reaction; Marked relief of symptoms pf1 Disposition: 01/11 06:53 Co-signature as Attending Physician, Viral Mariano MD I agree with the assessment sp4 and plan of care. I reviewed the patient's care provided by the Advanced Practice Provider and agree with the diagnosis and treatment plan. Disposition Summary: 01/10/23 21:39 Discharge Ordered Notes: Location: Home kb Condition: Stable kb Diagnosis - Multiple fractures of ribs, right side kb Followup: kb - With: Emergency Department - When: As needed - Reason: Worsening of condition Followup: kb - With: Private Physician - When: 2 - 3 days - Reason: Recheck today's complaints, Continuance of care, Re-evaluation by your physician Discharge Instructions: - Discharge Summary Sheet kb - Rib Fracture, [id number] kb Forms: - Medication Reconciliation Form kb - Thank You Letter kb - Antibiotic Education kb - Prescription Opioid Use kb - Patient Portal Instructions kb - Leadership Thank You Letter kb Prescriptions: - acetaminophen-codeine 300-30 mg Oral tablet - take 1 tablet ORAL route every 4 to 6 hours As needed; 15 tablet; Refills: 0, kb Product Selection Permitted Signatures: Dispatcher [employer] EDMS Dipti Odonnell, PRETTYC Melonie Lo, RN RN pf1 Vrial Mariano MD MD sp4 Mariza Larios RN RN cm10 Corrections: (The following items were deleted from the chart) 01/10 21:00 20:53 Abdomen Pelvis Wo [id number] ordered. EDMS EDMS
[2023-01-10] MEDS ORDERED: KETOROLAC 30 MG/ML INJ ONE (22:07)
[2023-01-10 22:19] VITALS: TEMP 98
[2023-01-10 22:21] VITALS: BP 118/78; O2SAT 99
--- NOTE | 2023-01-14 10:18 | RAD REPORT ---
EXAM DESCRIPTION: CT - Abdomen Wo Contrast - 01/10/2023 9:00 pm CLINICAL HISTORY: CHEST PAIN COMPARISON: Abdomen Wo Contrast dated 01/10/2023 FINDINGS: CT chest/CT abdomen without contrast The lungs are clear. No pleural thickening or pleural effusion. No pneumothorax. No axillary, mediastinal or hilar adenopathy. Nondisplaced right lateral eighth and ninth rib fractures noted. No gross upper abdominal finding. All CT scans are performed using dose optimization technique as appropriate and may include automated exposure control or mA/KV adjustment according to patient size. IMPRESSION: Nondisplaced right lateral eighth and ninth rib fractures noted. No pneumothorax or uppe r abdominal abnormality of concern evident.
== END 2023-01-10 22:15 | disposition home or self-care (01) ==
LOC: EEVIPCON 20:19 → ER 20:19
DX: S22.41XA Multiple fractures of ribs, right side, initial encounter for closed fracture (principal); W01.198A Fall on same level from slipping, tripping and stumbling with subsequent striking against other object, initial encounter; F17.220 Nicotine dependence, chewing tobacco, uncomplicated
CPT/HCPCS: 71250; 74150; 96372; 99284

== ENCOUNTER 2023-01-17 15:16 | Emergency (ER) | payer OTHER ==
--- OUTSIDE RECORDS SUMMARY | 2023-01-17 15:36 | XMS REPORT | Continuity of Care Document ---
:1960 Author Organization [facility] t Address [address] [place] [address]. [address] [place] [id number] Care Team Providers Name Role Phone PCP, PATIENT DOES NOT HAVE A Primary Care Physician UnavailKleber Díaz Attending Clinician Unavailable MICKEY COCHRAN K.HClark Attending Clinician Unavailable Mickey Cochran MD K.HClark Attending Clinician Doctor Unassigned, [place] Attending Clinician Unavailable JAG BADILLO Attending Clinician Unavailable Jag Corey Attending Clinician Roge Regan MD Attending Clinician ROGE REGAN Attending Clinician Unavailable GOYO PARRISH Attending Clinician Unavailable Payers Payer Name Policy Type Policy Number Effective Date Expiration Date S zuleyka [facility] [id number] 2022 00:00:00 [facility] [id number] 2021 00:00:00 Problems Condition Condition Condition Status Onset Resolution Last Treating Co mments Source Name Details Category Date Date Treatment Clinician Date Hand pain, Hand pain, Disease Active 2017-0 U nivers left left 5-10 ity of 00:00: [address] Allergies, Adverse Reactions, Alerts Allergy Allergy Status Severity Reaction(s) Onset Inactive Treating Comm ents Source Name Type Date Date Clinician NO KNOWN Drug Active Univers ALLERGIE Class ity of [facility] Social History Social Habit Start Date Stop Date Quantity Comments Source History of Chews Tobacco University of tobacco use [facility] Exposure to 2022-01-17 2022-01-27 Not sure University SARS-CoV-2 00:00:00 14:47:00 [facility] (event) Branch Alcohol intake 2022-01-27 2022-01-27 Current drinker Homae rsity of 00:00:00 00:00:00 of alcohol [facility] (finding) [place] Tobacco use and 2012-12-24 2012-12-24 User of smokeless Un iversity of exposure 00:00:00 00:00:00 tobacco [facility] Sex Assigned At [birth year] Universit y of 00:00:00 00:00:00 [facility] Smoking Status Start Date Stop Date Source Never smoked tobacco [facility] Medications Ordered Filled Start Stop Current Ordering Indication Dosage Frequency Signature Comments Components Source Medication Medication Date Date Medication? Clinician (SIG) Name Name aspirin 81 2021-02- No 81mg Take 81 mg Univers mg chewable 03-30 by mouth ity of tablet 15:06: 00:00 daily. [place] 22 :00 [facility] aspirin 81 2021-02- No 81mg Take 81 mg Univers mg chewable 03-30 by mouth ity of tablet 15:06: 00:00 daily. [place] 22 :00 [facility] OMEPRAZOLE 2021-02- No Take by Uni vers ORAL 2-12 12-12 mouth. ity of 15:06: 00:00 [place] 13 :00 [facility] OMEPRAZOLE 2021-02- No Take by Uni vers ORAL 2-12 12-12 mouth. ity of 15:06: 00:00 [place] 13 :00 [facility] traZODone 0 Yes 50mg 50 mg. Univer s 50 mg 9-27 ity of tablet 00:00: [facility] Branch traZODone 2021-0 Yes 50mg 50 mg. Univer s 50 mg 9-27 ity of tablet 00:00: [facility] Branch traZODone 2021-0 Yes 50mg 50 mg. Univer s 50 mg 9-27 ity of tablet 00:00: [place] [facility] traZODone 2021-0 Yes 50mg 50 mg. Univer s 50 mg 9-27 ity of tablet 00:00: [place] [facility] traZODone 2021-0 Yes 50mg 50 mg. Univer [...] 50 mg 9-27 ity of tablet 00:00: [place] [facility] diclofenac 2020-02 Yes [id number] 75mg Take 1 Univers 75 mg EC 2-01 tablet by ity of tablet 00:00: mouth [place] (two) Medical times Branch daily with meals. diclofenac 2020-02 Yes [id number] 75mg Take 1 Univers 75 mg EC 2-01 tablet by ity of tablet 00:00: mouth 2 [place] (two) Medical times Branch daily with meals. diclofenac 2020-02 Yes [id number] 75mg Take 1 Univers 75 mg EC 2-01 tablet by ity of tablet 00:00: [facility] [place] (two) Medical times Branch daily with meals. diclofenac 2020-02 Yes [id number] 75mg Take 1 Univers 75 mg EC 2-01 tablet by ity of tablet 00:00: [facility] [place] (two) Medical times Branch daily with meals. diclofenac 2020-02- No [id number] 75mg Take 1 Univers 75 mg EC 2-01 12-12 tablet by ity o f tablet 00:00: 00:00 mouth 2 [place] 00 :00 (two) Medical times Branch daily with meals. diclofenac 2020-02- No [id number] 75mg Take 1 Univers 75 mg EC 2-01 12-12 tablet by ity o f tablet 00:00: 00:00 [facility] 2 [place] 00 :00 (two) Medical times Branch daily with meals. diclofenac Yes [id number] 75mg Take 1 Univers 75 mg EC 8-30 9102 tablet by ity of tablet 00:00: mouth [place] (two) Medical times Branch daily with meals. diclofenac Yes [id number] 75mg Take 1 Univers 75 mg EC 8-30 9102 tablet by ity of tablet 00:00: mouth 2 [place] (two) Medical times Branch daily with meals. diclofenac 2021-0 Yes [id number] 75mg Take 1 Univers 75 mg EC 8-30 9102 tablet by ity of tablet 00:00: mouth 2 [place] 00 (two) Medical times Branch daily with meals. diclofenac 0 Yes [id number] 75mg Take 1 Univers 75 mg EC 8-30 9102 tablet by ity of tablet 00:00: mouth 2 [place] 00 (two) Medical times Branch daily with meals. diclofenac 0 2- No [id number] 75mg Take 1 Univers 75 mg EC 8-30 12-12 9102 tablet by ity o f tablet 00:00: 00:00 mouth 2 [place] 00 :00 (two) Medical times Branch daily with meals. diclofenac 2021- No [id number] 75mg Take 1 Univers 75 mg EC 8-30 12-12 9102 tablet by ity o f tablet 00:00: 00:00 mouth 2 [place] 00 :00 (two) Medical times Branch daily with meals. CITALOPRAM Yes Take by [facility] ers HYDROBROMID 7-08 mouth. ity of E 12:54: [place] (CITALOPRAM 25 Medical ORAL) Branch OMEPRAZOLE 0 Yes Take by [facility] ers ORAL 7-08 mouth. ity of 12:54: [address] aspirin 81 0 Yes 81mg Take 81 mg U nivers mg chewable 7-08 by mouth ity of tablet 12:54: daily. [address] CITALOPRAM 0 Yes Take by [facility] ers HYDROBROMID 7-08 mouth. ity of E 12:54: [place] (CITALOPRAM 25 Medical ORAL) Branch OMEPRAZOLE 0 Yes Take by [facility] ers ORAL 7-08 mouth. ity of 12:54: [address] aspirin 81 2020-0 Yes 81mg Take 81 mg U nivers mg chewable 7-08 by mouth ity of tablet 12:54: daily. [address] Branch CITALOPRAM 2020-0 Yes Take by [facility] ers HYDROBROMID 7-08 mouth. ity of E 12:54: [place] (CITALOPRAM 25 Medical ORAL) Branch OMEPRAZOLE 2020-0 Yes Take by [facility] ers ORAL 7-08 mouth. ity of 12:54: [address] aspirin 81 2020-0 Yes 81mg Take 81 mg U nivers mg chewable 7-08 by mouth ity of tablet 12:54: daily. [address] CITALOPRAM Yes Take by [facility] ers HYDROBROMID 7-08 mouth. ity of E 12:54: [place] (CITALOPRAM 25 Medical ORAL) Branch OMEPRAZOLE Yes Take by [facility] ers ORAL 7-08 mouth. ity of 12:54: [address] aspirin 81 Yes 81mg Take 81 mg U nivers mg chewable 7-08 by mouth ity of tablet 12:54: daily. [address] Branch CITALOPRAM Yes Take by [facility] ers HYDROBROMID 7-08 mouth. ity of E 12:54: [place] (CITALOPRAM 25 Medical ORAL) Branch CITALOPRAM Yes Take by [facility] ers HYDROBROMID 7-08 mouth. ity of E 12:54: [place] (CITALOPRAM 25 Medical ORAL) Branch CITALOPRAM Yes Take by [facility] ers HYDROBROMID 7-08 mouth. ity of E 12:54: [place] (CITALOPRAM 25 Medical ORAL) Branch CITALOPRAM Yes Take by [facility] ers HYDROBROMID 7-08 mouth. ity of E 12:54: [place] (CITALOPRAM 25 Medical ORAL) Branch CITALOPRAM Yes Take by [facility] ers HYDROBROMID 7-08 mouth. ity of E 12:54: [place] (CITALOPRAM 25 Medical ORAL) Branch CITALOPRAM Yes Take by [facility] ers HYDROBROMID 7-08 mouth. ity of E 12:54: [place] (CITALOPRAM 25 Medical ORAL) Branch CITALOPRAM Yes Take by [facility] ers HYDROBROMID 7-08 mouth. ity of E 12:54: [place] (CITALOPRAM 25 Medical ORAL) Branch CITALOPRAM Yes Take by [facility] ers HYDROBROMID 7-08 mouth. ity of E 12:54: [place] (CITALOPRAM 25 Medical ORAL) Branch DUEXIS Yes Univers 800-26.6 mg 3-08 ity of per tablet 00:00: Medical Branch DUEXIS Yes Univers 800-26.6 mg 3-08 ity of per tablet 00:00: [place] [facility] DUEXIS 0 Yes Univers 800-26.6 mg 3-08 ity of per tablet 00:00: [place] 00 Medical Branch DUEXIS 2016- Yes Univers 800-26.6 mg 3-08 ity of per tablet 00:00: [place] 00 Medical Branch DUEXIS 2016-0 2- No Univers 800-26.6 mg 3-08 12 ity of per tablet 00:00: 00:00 [place] 00 :00 Medical Branch DUEXIS 2016-0 2- No Univers 800-26.6 mg 3-08 12 ity of per tablet 00:00: 00:00 [place] 00 :00 Medical Branch Vital Signs Vital Name Observation Time Observation Value Comments Source Systolic blood 2022-08-20 16:36:00 129 mm[Hg] Univer sity of pressure [facility] Diastolic blood 2022-08-20 16:36:00 85 mm[Hg] Unive rsity of pressure [facility] Heart rate 2022-08-20 16:36:00 65 /min Universi ty of [facility] Body height 2022-08-20 16:36:00 177.8 cm Universi ty of [facility] Body weight 2022-08-20 16:36:00 82.419 kg Universi ty of [facility] BMI 2022-08-20 16:36:00 26.07 kg/m2 Universi ty [facility] Oxygen saturation in 2022-08-20 16:36:00 97 /min [facility] Arterial blood by [facility] Pulse oximetry Branch Systolic blood 2022-01-27 21:08:00 138 mm[Hg] Univer sity of [facility] Diastolic blood 2022-01-27 21:08:00 98 mm[Hg] Unive rsity of pressure [facility] Heart rate 2022-01-27 21:08:00 83 /min Universi ty of [facility] Respiratory rate 2022-01-27 21:04:00 19 /min Univ ersity of [facility] Body height 2022-01-27 21:04:00 177.8 cm Universi ty of [facility] Body weight 2022-01-27 21:04:00 81.738 kg Universi ty of [facility] BMI 2022-01-27 21:04:00 25.86 kg/m2 [facility] Systolic blood 2021-01-16 19:17:00 124 mm[Hg] Univer sity of pressure [facility] Diastolic blood 2021-01-16 19:17:00 75 mm[Hg] Unive rsity of pressure [facility] Heart rate 2021-01-16 19:17:00 82 /min [facility] Body height 2021-01-16 19:17:00 177.8 cm [facility] Body weight 2021-01-16 19:17:00 88.451 kg [facility] BMI 2021-01-16 19:17:00 27.98 kg/m2 [facility] Procedures Procedure Date / Time Performing Clinician Source Performed [facility] PATIENT FINANCIAL 2022-08-20 16:12:29 Doctor Unassigned, No [facility] POLICY Name Medical Branch AUTHORIZATION FOR 2022-02-06 06:01:00 Doctor Unassigned, No [facility] RELEASE OF [facility] Medical Branch ASSIGNMENT OF BENEFITS 2022-01-27 20:48:13 Doctor Unassigned, No [facility] Medical Branch REFERRAL- 2021-12-23 06:01:00 Doctor Unassigned, No [facility] REQUEST/RESPONSE [facility] Encounters Start End Encounter Admission Attending Care Care Encounter Source Date/Time Date/Time Type Type Clinicians Facility Department ID 2021-03-13 Outpatient Bernabe, STLMLC STLMLC [id number] Common 14:03:11 [facility] [address] [facility] 2021-03-13 Outpatient Bernabe, STLMLC STLMLC [id number] Common 14:02:22 [facility] [id number] [facility] 2021-03-13 Outpatient Bernabe, STLMLC STLMLC [id number] Common 13:34:00 [place] [id number] [facility] 2021-03-13 Outpatient Bernabe, STLMLC STLMLC [id number] Common 13:33:04 [place] [id number] [facility] 2021-03-13 Outpatient Bernabe, STLMLC STLMLC [id number] Common 13:29:32 [facility] [address] [facility] 2021-03-13 Outpatient Bernabe, STLMLC STLMLC [id number] Common 13:28:45 [place] [id number] [facility] 2021-03-13 Outpatient Bernabe, STLMLC STLMLC [id number] Common 13:28:22 [place] [id number] [facility] 2021-03-13 Outpatient Bernabe, STLMLC STLMLC [id number] Common 13:05:47 Kleber [id number] [facility] 2021-03-13 Outpatient STLMLC STLC [id number] Common 12:46:43 [address] [facility] 2021-03-13 [facility] [id number] Common 12:42:18 [id number] [facility] 2023-08-21 2023-08-21 Outpatient R SAMMIE [facility] [id number] Univers 09:00:00 09:00:[address] [facility] 2022-08-20 2022-08-20 Outpatient R SAMMIE [facility] [id number] Univers 11:30:00 12:04:39 SENDIL [facility] 2022-08-20 2022-08-20 [facility] [id number] Univers 11:30:00 12:04:39 Visit Mickey VELA [id number] it[id number] [id number] Tn dical [facility] 059 [facility] 2022-08-20 2022-08-20 Orders Doctor HALLE [id number] Univers 00:00:00 00:00:00 Only Unassigned, JARAD [id number] ity of [place] [facility] [id number] Michael as [phone] [address] 2022-02-06 2022-02-06 Telephone Sammie [facility] [id number] Univers 00:00:00 00:00:00 Sendelah VELA [id number] [id number] [id number] Tn dical NAL 9 [facility] 2022-02-06 2022-02-06 Orders Doctor HALLE [id number] Univers 00:00:00 00:00:00 Only Unassigned, JARAD [id number] ity of [place] [facility] [id number] Michael as [phone] [address] 2022-01-27 2022-01-27 Outpatient R SAMMIE [facility] [id number] Univers 15:00:00 15:27:19 [facility]22-01-27 2022-01-27 Office Sammie [facility] [id number] Univers 15:00:00 15:27:19 Visit Sendil Blair VELA [id number] ity [id number] [id number] [address] 2022-01-27 2022-01-27 Orders Doctor HALLE 1.2.840.114 [id number] Univers 00:00:00 00:00:00 Only Unassigned, JARAD [id number] ity of [place] [facility] [id number] Michael as [phone] [address] 2022-01-24 2022-01-24 Outpatient R SAMMIE [facility] [id number] Univers 14:00:00 14:00:[address] [facility] 2021-12-23 2021-12-23 Orders Doctor HALLE 1.2.840.114 [id number] Univers 00:00:00 00:00:00 Only Unassigned, JARAD [id number] ity of [place] [facility] [id number] Michael as [id number] [address] 2021-01-16 2021-01-16 Outpatient R JUSTINO [facility] [id number] Univers 13:45:00 23:59:[address] [facility] 2021-01-16 2021-01-16 [facility] [id number] Univers 13:45:00 23:59:00 Encounter Jag Kim HEALTH [id number] ity of [place] [id number] Michael as CONRADO?BLEA [id number] Me silver JACKMAN 809 [facility] OFFICE [facility] 2021-01-16 2021-01-16 Office [facility] [id number] Univers 13:05:09 13:56:23 Visit Roge MOISE [id number] it y of [place] [id number] Michael as CONRADO?BLEA [id number] Tn silver JACKMAN 198 [facility] OFFICE [facility] 2021-01-16 2021-01-16 [facility] [id number] Univers 13:00:00 13:56:[address] [facility] 2020-10-15 2020-10-15 Office [facility] [id number] Univers 13:18:53 13:49:57 Visit Roge Rain [facility] [id number] it y of [place] [id number] Michael as Conrado?Blea [phone] Tn silver jackman 198 [facility] Office [facility] 2020-10-15 2020-10-15 Outpatient [facility] [id number] Univers 13:30:00 13:30:[address] [facility] 2020-10-10 2020-10-10 Telephone [facility] [id number] Univers 00:00:00 00:00:00 Roge Rain [employer] [id number] it y of [place] [id number] Michael as Conrado?Blea [phone] Tn silver jackman [address] [facility] Office [facility] 2020-09-27 2020-09-27 Outpatient [facility] [id number] Univers 08:00:00 08:00:[address] [facility] 2020-09-27 2020-09-27 Orders Doctor HALLE [id number] [id number] Univers 00:00:00 00:00:00 Only Unassigned, JARAD [id number] ity of [place] [facility] [id number] Mihcael as [id number] [address] 2020-09-27 2020-09-27 Telephone [facility] 1.2.840.114 [id number] Univers 00:00:00 00:00:00 Roge Vela [id number] i [id number] [id number] Me dical nal 198 [facility] 2020-08-29 2020-08-29 Telephone [facility] [id number] Univers 00:00:00 00:00:00 Jag S Health [id number] it y of Surgical [id number] Michael as Specialti [phone] Me dical es 198 [facility] 2020-08-23 2020-08-23 [facility] [id number] Univers 12:03:53 23:59:00 Encounter Jag S Health [id number] ity of Surgical [id number] Michael as Specialti [id number] Me dical es 809 [facility] 2020-08-23 2020-08-23 Office [facility] 1.2.840.114 [id number] Univers 12:48:40 13:32:37 Visit Jag S Health [id number] it y of Surgical [id number] Michael as Specialti [phone] Me dical es 198 [facility] 2020-08-23 2020-08-23 [facility]patient [facility] [id number] Univers 13:00:00 13:00:00 JAG [facility] 2020-08-23 2020-08-23 [facility] [id number] Univers 11:22:54 12:02:00 Encounter Jag Vela [id number] ity of [place] [id number] [facility] [id number] [facility] 807 Branch 2020-08-15 2020-08-15 Orders Doctor HALLE [id number] [id number] Univers 00:00:00 00:00:00 Only Unassigned, JARAD [id number] ity of [place] [facility] [id number] Michael [id number] [facility] 009 Branch 2020-06-16 2020-06-16 [facility]patient [facility] [id number] Univers 14:10:00 14:10:[address] [facility] 2020-05-26 2020-05-26 Outpatient [facility] [id number] Univers 14:05:00 14:05:00 [facility] Results This patient has no known results.
[2023-01-17] MEDS ORDERED: CYCLOBENZAPRINE 10 MG TAB ONE (16:09)
[2023-01-17] MEDS ORDERED: KETOROLAC 30 MG/ML INJ ONE (16:09)
--- NOTE | 2023-01-17 17:05 | RAD REPORT ---
EXAM DESCRIPTION: RAD - Chest Single View - 01/17/2023 4:55 pm CLINICAL HISTORY: PAIN Chest pain. COMPARISON: Chest Pa And Lat (2 Views) dated 03/06/2022; Chest Single View dated 10/16/2021; Chest Sin gle View dated 10/04/2015; Chest Single View dated 10/03/2015 FINDINGS: Portable technique limits examination quality. The lungs are grossly clear. The heart is normal in size. No displaced fractures. IMPRESSION: No acute intrathoracic process suspected.
--- NOTE | 2023-01-17 17:12 | RAD REPORT ---
EXAM DESCRIPTION: RAD - Ribs Right - 01/17/2023 4:55 pm CLINICAL HISTORY: PAIN COMPARISON: <Comparisons> FINDINGS: Nondisplaced hairline fracture suspected involving the lateral aspect of the right eighth and ninth ribs. No pneumothorax suspected.
--- NOTE | 2023-01-17 17:19 | ER ---
Nurse's Notes [facility] Name: Ayden España Age: 62 yrs Sex: Male : 1960 Arrival Date: 01/17/2023 Time: 15:16 Bed 11 Private MD: Diagnosis: Multiple fractures of ribs, right side Presentation: 01/17 15:36 Chief complaint: Patient states: Right sided rib pain - sneezed today and I think I ld1 felt my rib pop. Coronavirus screen: At this time, the client does not indicate any symptoms associated with coronavirus-19. Ebola Screen: No symptoms or risks identified at this time. Initial Sepsis Screen: Does the patient meet any 2 criteria? No. Patient's initial sepsis screen is negative. Does the patient have a suspected source of infection? No. Patient's initial sepsis screen is negative. Risk Assessment: Do you want to hurt yourself or someone else? Patient reports no desire to harm self or others. Onset of symptoms was January 17, 2023 at 15:37. 15:36 Method Of Arrival: Ambulatory ld1 15:36 Acuity: MAVIS 4 ld1 Triage Assessment: 15:37 General: Appears in no apparent distress. uncomfortable, Behavior is cooperative, ld1 appropriate for age, anxious. Pain: Complains of pain in right lateral anterior chest Pain does not radiate. Pain currently is 10 out of 10 on a pain scale. Quality of pain is described as throbbing. EENT: No signs and/or symptoms were reported regarding the EENT system. Neuro: Level of Consciousness is awake, alert, obeys commands, Oriented to person, place, time, situation. Cardiovascular: Capillary refill < 3 seconds Patient's skin is warm and dry. Respiratory: Airway is patent Respiratory effort is even, unlabored. GI: Abdomen is flat, non-distended. : No signs and/or symptoms were reported regarding the genitourinary system. Derm: No signs and/or symptoms reported regarding the dermatologic system. Musculoskeletal: No signs and/or symptoms reported regarding the musculoskeletal system. Historical: - Allergies: 15:37 NKDA; ld1 - PMHx: 15:37 Anxiety; BAKERS CYST REMOVAL; Depression; GERD; ld1 - Immunization history:: Adult Immunizations up to date. - Social history:: Smoking status: Patient denies any tobacco usage or history of. Patient/guardian denies using alcohol. Screenin:08 [facility] ED Fall Risk Assessment (Adult) History of falling in the last 3 months, cm10 including since admission Yes- single mechanical fall (1 pt) Confusion or Disorientation No (0 pts) Intoxicated or Sedated No (0 pts) Impaired Gait No (0 pts) Mobility Assist Device Used No (0 pt) Altered Elimination No (0 pt) Score/Fall Risk Level 0 - 2 = Low Risk Oriented to surroundings, Maintained a safe environment, Hourly rounding (assess needs \T\ fall precautionary measures) done. Abuse screen: Denies threats or abuse. Denies injuries from another. Nutritional screening: No deficits noted. Tuberculosis screening: No symptoms or risk factors identified. Assessment: 16:07 General: Appears in no apparent distress. uncomfortable, Behavior is calm, cooperative. cm10 Pain: Complains of pain in right lateral anterior chest Pain currently is 10 out of 10 on a pain scale. Neuro: No deficits noted. Level of Consciousness is awake, alert, Oriented to person, place, time, situation. Cardiovascular: No deficits noted. Respiratory: No deficits noted. Airway is patent Respiratory effort is even, unlabored, Respiratory pattern is regular, symmetrical. GI: No deficits noted. No signs and/or symptoms were reported involving the gastrointestinal system. : No deficits noted. No signs and/or symptoms were reported regarding the genitourinary system. EENT: No deficits noted. No signs and/or symptoms were reported regarding the EENT system. Derm: No deficits noted. No signs and/or symptoms reported regarding the dermatologic system. Skin is intact, Skin is pink, warm \T\ dry. Musculoskeletal: No deficits noted. Range of motion: intact in all extremities, Reports pain in right lateral anterior chest. 17:59 Reassessment: Patient and/or family updated on plan of care and expected duration. Pain cm10 level reassessed. Patient is alert, oriented x 3, equal unlabored respirations, skin warm/dry/pink. Patient states feeling better. Patient states symptoms have improved. Vital Signs: 15:36 BP 152 / 96; Pulse 80; Resp 18; Temp 98.2(TE); Pulse Ox 97% on R/A; Weight 81.65 kg; ld1 Height 5 ft. 9 in. ; Pain 10/10; 15:36 Body Mass Index 26.58 (81.65 kg, 175.26 cm) ld1 15:36 Pain Scale: Adult ld1 ED Course: 15:19 Patient arrived in ED. rg4 15:37 Triage completed. ld1 15:37 Arm band placed on right wrist. ld1 15:39 [place] Grullon FNP [facility] 15:39 Toro Patel MD is Attending Physician. [facility] 15:53 Mariza Larios, RN is Primary Nurse. cm10 16:08 Patient has correct armband on for positive identification. Bed in low position. Call cm10 light in reach. Provided Education on: ER process and procedures. . Cardiac monitoring not applicable on this patient. 16:08 No provider procedures requiring assistance completed. Patient did not have IV access cm10 during this emergency room visit. 16:57 XRAY Ribs RIGHT In Process Unspecified. EDMS 16:57 XRAY Chest (1 view) In Process Unspecified. EDMS Administered Medications: 15:59 Drug: Ketorolac IM 60 mg IM once Route: IM; Site: left gluteus; cm10 17:59 Follow up: Response: No adverse reaction cm10 15:59 Drug: Cyclobenzaprine PO 10 mg PO once Route: PO; cm10 17:59 Follow up: Response: No adverse reaction cm10 Medication: 16:08 VIS not applicable for this client. cm10 Outcome: 17:19 Discharge ordered by . [facility] 17:59 Discharged to home ambulatory, cm10 17:59 Condition: good 17:59 Discharge instructions given to patient, Instructed on discharge instructions, follow up and referral plans. medication usage, Demonstrated understanding of instructions, follow-up care, medications, Prescriptions given X 2, 18:00 Patient left the ED. cm10 Signatures: Dispatcher [employer] EDMS Kaitlyn Castrejon 4 Jodi Mccormack RN RN 1 [place] Grullon FNP [place] [address] Mariza Larios, ENE RN cm10
--- NOTE | 2023-01-17 17:19 | EDPHYS ---
Physician Documentation [facility] Name: Ayden España Age: 62 yrs Sex: Male : 1960 Arrival Date: 01/17/2023 Time: 15:16 Bed 11 Private MD: ED Physician Toro Patel HPI: 01/17 15:37 This 62 yrs old Male presents to ER via Ambulatory with complaints of Rib Pain. [facility] 15:37 Onset: The symptoms/episode began/occurred acutely. Associated signs and symptoms: The [facility] patient has no apparent associated signs or symptoms. Patient was diagnosed with right eighth and ninth rib fractures last Thursday. He states that the pain has been manageable but today he sneezed violently and experienced increased pain in the area of his fractures.. Historical: - Allergies: 15:37 NKDA; ld1 - PMHx: 15:37 Anxiety; BAKERS CYST REMOVAL; Depression; GERD; ld1 - Immunization history:: Adult Immunizations up to date. - Social history:: Smoking status: Patient denies any tobacco usage or history of. Patient/guardian denies using alcohol. ROS: 15:37 Constitutional: Negative for fever, chills, and weight loss, Eyes: Negative for injury, jh7 pain, redness, and discharge, Neck: Negative for injury, pain, and swelling, Respiratory: Negative for shortness of breath, cough, wheezing, and pleuritic chest pain, Abdomen/GI: Negative for abdominal pain, nausea, vomiting, diarrhea, and constipation, Back: Negative for injury and pain, MS/Extremity: Negative for injury and deformity, Skin: Negative for injury, rash, and discoloration, Neuro: Negative for headache, weakness, numbness, tingling, and seizure, 15:37 Cardiovascular: Positive for Right rib pain, Negative for chest pain, palpitations, 15:37 All other systems are negative, Exam: 15:37 Constitutional: This is a well developed, well nourished patient who is awake, alert, jh7 and in no acute distress. Head/Face: Normocephalic, atraumatic. Cardiovascular: Regular rate and rhythm with a normal S1 and S2. No gallops, murmurs, or rubs. Normal PMI, no JVD. No pulse deficits. Respiratory: Lungs have equal breath sounds bilaterally, clear to auscultation and percussion. No rales, rhonchi or wheezes noted. No increased work of breathing, no retractions or nasal flaring. Abdomen/GI: Soft, non-tender, with normal bowel sounds. No distension or tympany. No guarding or rebound. No evidence of tenderness throughout. Back: No spinal tenderness. No costovertebral tenderness. Full range of motion. Skin: Warm, dry with normal turgor. Normal color with no rashes, no lesions, and no evidence of cellulitis. MS/ Extremity: Pulses equal, no cyanosis. Neurovascular intact. Full, normal range of motion. Neuro: Awake and alert, GCS 15, oriented to person, place, time, and situation. Normal gait. 15:37 Chest/axilla: Inspection: normal, Palpation: tenderness, that is moderate, of the right lateral anterior chest, that totally reproduces the patient's complaints, Vital Signs: 15:36 BP 152 / 96; Pulse 80; Resp 18; Temp 98.2(TE); Pulse Ox 97% on R/A; Weight 81.65 kg; ld1 Height 5 ft. 9 in. ; Pain 10/10; 15:36 Body Mass Index 26.58 (81.65 kg, 175.26 cm) ld1 15:36 Pain Scale: Adult ld1 MDM: 15:39 Patient medically screened. [facility] 17:16 Differential diagnosis: Rib fractures, pneumonia. Data reviewed: vital signs, nurses [facility] notes, radiologic studies, plain films. I considered the following discharge prescriptions or medication management in the emergency department Medications were administered in the Emergency Department. See MAR. Counseling: I had a detailed discussion with the patient and/or guardian regarding the historical points, exam findings, and any diagnostic results supporting the discharge/admit diagnosis, to return to the emergency department if symptoms worsen or persist or if there are any questions or concerns that arise at home. Response to treatment: the patient's symptoms have markedly improved after treatment. Special discussion: Informed the patient that the fractures have not seem to change on x-ray. He stated that the medication did improve his pain. Agreed to add NSAID and muscle relaxer and with pain management. The patient remained hemodynamically stable throughout his ER visit.. 01/17 15:44 Order name: ERICA Ribs RIGHT; Complete Time: 17:15 [facility] 01/17 15:44 Order name: XRAY Chest (1 view); Complete Time: 17:15 [facility] Administered Medications: 15:59 Drug: Ketorolac IM 60 mg IM once Route: IM; Site: left gluteus; cm10 17:59 Follow up: Response: No adverse reaction cm10 15:59 Drug: Cyclobenzaprine PO 10 mg PO once Route: PO; cm10 17:59 Follow up: Response: No adverse reaction cm10 Disposition Summary: 01/17/23 17:19 Discharge Ordered Notes: Location: Home [facility] Problem: new [facility] Symptoms: have improved [facility] Condition: Stable [facility] Diagnosis - Multiple fractures of ribs, right side [facility] Followup: [facility] - With: Private Physician - When: 2 - 3 days - Reason: Recheck today's complaints Discharge Instructions: - Discharge Summary Sheet [facility] - Rib Fracture [facility] Forms: - Medication Reconciliation Form [facility] - Thank You Letter [facility] - Patient Portal Instructions [facility] - Leadership Thank You Letter [facility] Prescriptions: - Naprosyn 500 mg Oral Tablet - take 1 tablet ORAL route 2 times per day take with food; 30 tablet; Refills: 0, [facility] Product Selection Permitted - Zanaflex 4 mg Oral Tablet - take 1 tablet ORAL route every 8 hours As needed; 20 tablet; Refills: 0, [facility] Product Selection Permitted Signatures: Dispatcher [employer] Jodi Reese, RN RN ld1 [place] Grullon, SHOP FIRER/FIREMAN [employer] FIRER/FIREMAN 7 Mariza Larios RN RN cm10
[2023-01-17 18:24] VITALS: BP 152/96; TEMP 98.2; O2SAT 97
== END 2023-01-17 18:00 | disposition home or self-care (01) ==
LOC: ER 15:16
DX: R07.81 Pleurodynia (principal); S22.41XS Multiple fractures of ribs, right side, sequela
CPT/HCPCS: 71045; 96372; 99284

== ENCOUNTER → 2023-02-12 | Emergency (ER) | payer OTHER ==
[~2023-02-12] MED LIST: ALBUTEROL 2.5 MG/3 ML NEB SOL ONE; AZITHROMYCIN 500 MG INJ IVPB ONE; IPRATROPIUM BROM 0.5MG/2.5ML ONE; NA CHLORIDE 0.9% 250 ML ONE; predniSONE 20 MG TAB ONE
--- OUTSIDE RECORDS SUMMARY | 2023-02-12 17:13 | XMS REPORT | Continuity of Care Document ---
Author Name Unknown Address [address] [facility] [address] [place] [address] [facility] thconnect Address [address] [facility] [address] [place] [address] Care Team Providers Care Scrap Carrier Name Role Phone PCP, PATIENT DOES NOT HAVE A Primary Care Physic miquel Unavailable Kleber Bernabe Attending Clinician Unavailable MICKEY COCHRAN.HClark Attending Clinician Mary Cochran MD, Mickey K.H. Attending Clinician + [phone] Doctor Unassigned, [place] Attending Clinician U JAG Chen Attending Clinician Unavailable Jag Corey Attending Clinician [phone] Roge Regan MD Attending Clinician [phone] ROGE REGAN Attending Clinician UnavailGOYO Lynn Attending Clinician Unavailable Payers Payer Name Policy Type Policy Number Effective Date Expirati on Date Source [facility] [id number] 2020 00:00:00 [facility] [id number] 2021 00:00:00 2022 00:00:00 Problems Condition Name Condition Details Condition Category Status Onset Date Resolution Date Last Treatment Date Treating Clinician Comments Source Hand pain, left Hand pain, left Disease Active 06-25 00:00: 00 [facility] Allergies, Adverse Reactions, Alerts Allergy Name Allergy Type Status Severity Reaction(s) Onset Date Inactive Date Treating Clinician Comments Source NO KNOWN ALLERGIE S Drug Class Active [facility] Social History Social Habit Start Date Stop Date Quantity Comments Source History of tobacco use Chews Tobacco [facility] Exposure to SARS-CoV-2 (event) 2022-01-17 00:00:00 2022-01-27 14:47:00 Not sure [facility] Alcohol intake 2022-01-27 00:00:00 2022-01-27 00:00:00 Current drinker of alcohol (finding) [facility] Tobacco use and exposure 2012-12-24 00:00:00 2012-12-24 00:00:00 User of smokeless tobacco [facility] Sex Assigned At 1960 00:00:00 1960 00:00:00 [facility] Smoking Status Start Date Stop Date Source Never smoked tobacco [facility] Medications Ordered Medication Name Filled Medication Name Start Date Stop Date Current Medication? Ordering Clinician Indication Dosage Frequency Signature (SIG) Comments Components Source aspirin 81 mg chewable tablet 2021-02 15:06: 22 01-27 00:00 :00 No 81mg Take 81 mg by mouth daily. [facility] aspirin 81 mg chewable tablet 2021-02 15:06: 22 01-27 00:00 :00 No 81mg Take 81 mg by mouth daily. [facility] OMEPRAZOLE ORAL 2021-02 15:06: 01-27 00:00 :00 No Take by mouth. [facility] OMEPRAZOLE ORAL 2021-02 15:06: 01-27 00:00 :00 No Take by mouth. [facility] traZODone 50 mg tablet 11-12 00:00: 00 Yes 50mg 50 mg. [facility] traZODone 50 mg tablet 11-12 00:00: 00 Yes 50mg 50 mg. [facility] traZODone 50 mg tablet 11-12 00:00: 00 Yes 50mg 50 mg. [facility] traZODone 50 mg tablet 11-12 00:00: 00 Yes 50mg 50 mg. [facility] traZODone 50 mg tablet 11-12 00:00: 00 Yes 50mg 50 mg. [facility] traZODone 50 mg tablet 11-12 00:00: 00 Yes 50mg 50 mg. [facility] traZODone 50 mg tablet 11-12 00:00: 00 Yes 50mg 50 mg. [facility] traZODone 50 mg tablet 11-12 00:00: 00 Yes 50mg 50 mg. [facility] diclofenac 75 mg EC tablet 2020-02 00:00: 00 Yes [id number] 75mg Take 1 tablet by mouth 2 (two) times daily with meals. [facility] diclofenac 75 mg EC tablet 2020-02 00:00: 00 Yes [id number] 75mg Take 1 tablet by mouth 2 (two) times daily with meals. [facility] diclofenac 75 mg EC tablet 2020-02 00:00: 00 Yes [id number] 75mg Take 1 tablet by mouth 2 (two) times daily with meals. [facility] diclofenac 75 mg EC tablet 2020-02 00:00: 00 Yes [id number] 75mg Take 1 tablet by mouth 2 (two) times daily with meals. [facility] diclofenac 75 mg EC tablet 2020-02 00:00: 00 01-27 00:00 :00 No [id number] 75mg Take 1 tablet by mouth 2 (two) times daily with meals. [facility] diclofenac 75 mg EC tablet 2020-02 00:00: 00 01-27 00:00 :00 No [id number] 75mg Take 1 tablet by mouth 2 (two) times daily with meals. [facility] diclofenac 75 mg EC tablet 10-15 00:00: 00 Yes [id number] 75mg Take 1 tablet by mouth 2 (two) times daily with meals. [facility] diclofenac 75 mg EC tablet 10-15 00:00: 00 Yes [id number] 75mg Take 1 tablet by mouth 2 (two) times daily with meals. [facility] diclofenac 75 mg EC tablet 10-15 00:00: 00 Yes [id number] 75mg Take 1 tablet by mouth 2 (two) times daily with meals. [facility] diclofenac 75 mg EC tablet 10-15 00:00: 00 Yes [id number] 75mg Take 1 tablet by mouth 2 (two) times daily with meals. [facility] diclofenac 75 mg EC tablet 10-15 00:00: 00 01-27 00:00 :00 No [id number] 75mg Take 1 tablet by mouth 2 (two) times daily with meals. [facility] diclofenac 75 mg EC tablet 10-15 00:00: 00 01-27 00:00 :00 No [id number] 9102 75mg Take 1 tablet by mouth 2 (two) times daily with meals. [facility] CITALOPRAM HYDROBROMID E (CITALOPRAM ORAL) 08-23 12:54: 25 Yes Take by mouth. [facility] OMEPRAZOLE ORAL 08-23 12:54: 25 Yes Take by mouth. [facility] aspirin 81 mg chewable tablet 08-23 12:54: 25 Yes 81mg Take 81 mg by mouth daily. [facility] CITALOPRAM HYDROBROMID E (CITALOPRAM ORAL) 08-23 12:54: 25 Yes Take by mouth. [facility] OMEPRAZOLE ORAL 08-23 12:54: 25 Yes Take by mouth. [facility] aspirin 81 mg chewable tablet 08-23 12:54: 25 Yes 81mg Take 81 mg by mouth daily. [facility] CITALOPRAM HYDROBROMID E (CITALOPRAM ORAL) 08-23 12:54: 25 Yes Take by mouth. [facility] OMEPRAZOLE ORAL 08-23 12:54: 25 Yes Take by mouth. [facility] aspirin 81 mg chewable tablet 08-23 12:54: 25 Yes 81mg Take 81 mg by mouth daily. [facility] CITALOPRAM HYDROBROMID E (CITALOPRAM ORAL) 08-23 12:54: 25 Yes Take by mouth. [facility] OMEPRAZOLE ORAL 08-23 12:54: 25 Yes Take by mouth. [facility] aspirin 81 mg chewable tablet 08-23 12:54: 25 Yes 81mg Take 81 mg by mouth daily. [facility] CITALOPRAM HYDROBROMID E (CITALOPRAM ORAL) 08-23 12:54: 25 Yes Take by mouth. [facility] CITALOPRAM HYDROBROMID E (CITALOPRAM ORAL) 08-23 12:54: 25 Yes Take by mouth. [facility] CITALOPRAM HYDROBROMID E (CITALOPRAM ORAL) 08-23 12:54: 25 Yes Take by mouth. [facility] CITALOPRAM HYDROBROMID E (CITALOPRAM ORAL) 08-23 12:54: 25 Yes Take by mouth. [facility] CITALOPRAM HYDROBROMID E (CITALOPRAM ORAL) 08-23 12:54: 25 Yes Take by mouth. [facility] CITALOPRAM HYDROBROMID E (CITALOPRAM ORAL) 08-23 12:54: 25 Yes Take by mouth. [facility] CITALOPRAM HYDROBROMID E (CITALOPRAM ORAL) 08-23 12:54: 25 Yes Take by mouth. [facility] CITALOPRAM HYDROBROMID E (CITALOPRAM ORAL) 08-23 12:54: 25 Yes Take by mouth. [facility] DUEXIS 800-26.6 mg per tablet 04-23 00:00: 00 Yes [facility] DUEXIS 800-26.6 mg per tablet 04-23 00:00: 00 Yes [facility] DUEXIS 800-26.6 mg per tablet 04-23 00:00: 00 Yes [facility] DUEXIS 800-26.6 mg per tablet 04-23 00:00: 00 Yes [facility] DUEXIS 800-26.6 mg per tablet 04-23 00:00: 00 01-27 00:00 :00 No [facility] DUEXIS 800-26.6 mg per tablet 04-23 00:00: 00 01-27 00:00 :00 No [facility] Vital Signs Vital Name Observation Time Observation Value Comments S ource Systolic blood pressure 2022-08-20 16:36:00 129 mm[Hg] [facility] Diastolic blood pressure 2022-08-20 16:36:00 85 mm[Hg] [facility] Heart rate 2022-08-20 16:36:00 65 /min [facility] Body height 2022-08-20 16:36:00 177.8 cm [facility] Body weight 2022-08-20 16:36:00 82.419 kg [facility] BMI 2022-08-20 16:36:00 26.07 kg/m2 [facility] Oxygen saturation in Arterial blood by Pulse oximetry 2022-08-20 16:36:00 97 /min [facility] Systolic blood pressure 2022-01-27 21:08:00 138 mm[Hg] [facility] Diastolic blood pressure 2022-01-27 21:08:00 98 mm[Hg] [facility] Heart rate 2022-01-27 21:08:00 83 /min [facility] Respiratory rate 2022-01-27 21:04:00 19 /min [facility] Body height 2022-01-27 21:04:00 177.8 cm [facility] Body weight 2022-01-27 21:04:00 81.738 kg [facility] BMI 2022-01-27 21:04:00 25.86 kg/m2 [facility] Systolic blood pressure 2021-01-16 19:17:00 124 mm[Hg] [facility] Diastolic blood pressure 2021-01-16 19:17:00 75 mm[Hg] [facility] Heart rate 2021-01-16 19:17:00 82 /min [facility] Body height 2021-01-16 19:17:00 177.8 cm [facility] Body weight 2021-01-16 19:17:00 88.451 kg [facility] BMI 2021-01-16 19:17:00 27.98 kg/m2 [facility] Procedures Procedure Date / Time Performed Performing Clinician Source [facility] PATIENT FINANCIAL POLICY 2022-08-20 16:12:29 Doctor Unassigned, [place] [facility] AUTHORIZATION FOR RELEASE OF PHI 2022-02-06 06:01:00 Doctor Unassigned, [place] [facility] ASSIGNMENT OF BENEFITS 2022-01-27 20:48:13 Docto r Unassigned, [place] [facility] REFERRAL- REQUEST/RESPONSE 2021-12-23 06:01:00 Doctor Unassigned, [place] [facility] Encounters Start Date/Time End Date/Time Encounter Type Admission Type Attending Clinicians Care Facility Care Department Encounter ID Source 2021-03-13 14:03:11 Outpatient Bernabe, [facility] [id number] [facility] 2021-03-13 14:02:22 Outpatient Bernabe, [facility] [id number] [facility] 2021-03-13 13:34:00 Outpatient Bernabe, [facility] [id number] [facility] 2021-03-13 13:33:04 Outpatient Bernabe, Kleber [facility] [id number] [facility] 2021-03-13 13:29:32 Outpatient Bernabe, Kleber [facility] [id number] [facility] 2021-03-13 13:28:45 Outpatient Bernabe, Kleber [facility] [id number] [facility] 2021-03-13 13:28:22 Outpatient BernabeMariely cardozoh [facility] [id number] [facility] 2021-03-13 13:05:47 Outpatient BernabeMariely cardozoh [facility] [id number] [facility] 2021-03-13 12:46:43 Outpatient [facility] [id number] [facility] 2021-03-13 12:42:18 Outpatient [facility] [id number] [facility] 2023-08-21 09:00:00 2023-08-21 09:00:00 Outpatient MICKEY AVITIA [facility] [id number] [facility] 2022-08-20 11:30:00 2022-08-20 12:04:39 Outpatient MICKEY VAITIA [facility] [id number] [facility] 2022-08-20 11:30:00 2022-08-20 12:04:39 Office Visit Mickey Cochran [facility] 1..840.114 350.1.13.10 4.2.7.2.686 [id number] [facility] 2022-08-20 00:00:00 2022-08-20 00:00:00 Orders Only Doctor Unassigned, [place] [facility] 1.840.114 350.1.13.10 4.2.7.2.686 [id number] [facility] 2022-02-06 00:00:00 2022-02-06 00:00:00 Telephone Mickey Cochran [facility] 1..840.114 350.1.13.10 4.2.7.2.686 [id number] [facility] 2022-02-06 00:00:00 2022-02-06 00:00:00 Orders Only Doctor Unassigned, [place] [facility] 1.2840.114 350.1.13.10 4.2.7.2.686 [id number] [facility] 2022-01-27 15:00:00 2022-01-27 15:27:19 Outpatient R MICKEY COCHRAN [facility] [id number] [facility] 2022-01-27 15:00:00 2022-01-27 15:27:19 Office Visit Mickey [facility] 1..840.114 350.1.13.10 4.2.7.2.686 [id number] [facility] 2022-01-27 00:00:00 2022-01-27 00:00:00 Orders Only Doctor Unassigned, [place] [facility] 1.2840.114 350.1.13.10 4.2.7.2.686 [id number] [facility] 2022-01-24 14:00:00 2022-01-24 14:00:00 Outpatient R MICKEY COCHRAN [facility] [id number] [facility] 2021-12-23 00:00:00 2021-12-23 00:00:00 Orders Only Doctor Unassigned, [place] [facility] 1.2840.114 350.1.13.10 4.2.7.2.686 [id number] [facility] 2021-01-16 13:45:00 2021-01-16 23:59:00 Outpatient R JAG CARMONA [facility] [id number] [facility] 2021-01-16 13:45:00 2021-01-16 23:59:00 Hospital Encounter Jag Carmona [facility] 1..840.114 350.1.13.10 4.2.7.2.686 [id number] [facility] 2021-01-16 13:05:09 2021-01-16 13:56:23 Office Visit Roge [facility]an [facility] 1.2.840.114 350.1.13.10 4.2.7.2.686 [id number] [facility] 2021-01-16 13:00:00 2021-01-16 13:56:23 Outpatient R ROGE REGAN [facility] [id number] [facility] 2020-10-15 13:18:53 2020-10-15 13:49:57 Office Visit Roge Regan [facility] 1.840.114 350.1.13.10 4.2.7.2.686 [id number] [facility] 2020-10-15 13:30:00 2020-10-15 13:30:00 Outpatient R ROGE REGAN [facility] [id number] [facility] 2020-10-10 00:00:00 2020-10-10 00:00:00 Telephone Roge Regan [facility] 1.840.114 350.1.13.10 4.2.7.2.686 [id number] [facility] 2020-09-27 08:00:00 2020-09-27 08:00:00 Outpatient R ROGE REGAN [facility] [id number] [facility] 2020-09-27 00:00:00 2020-09-27 00:00:00 Orders Only Doctor Unassigned, [place] [facility] 1.840.114 350.1.13.10 4.2.7.2.686 [id number] [facility] 2020-09-27 00:00:00 2020-09-27 00:00:00 [facility] 1.2.840.114 350.1.13.10 4.2.7.2.686 [id number] [facility] 2020-08-29 00:00:00 2020-08-29 00:00:00 Telephone Justino [facility] 1.2.840.114 350.1.13.10 4.2.7.2.686 [id number] [facility] 2020-08-23 12:03:53 2020-08-23 23:59:00 Hospital Encounter Justino [facility] 1.2.840.114 350.1.13.10 4.2.7.2.686 [id number] [facility] 2020-08-23 12:48:40 2020-08-23 13:32:37 Office Visit Justino [facility] 1.2.840.114 350.1.13.10 4.2.7.2.686 [id number] [facility] 2020-08-23 13:00:00 2020-08-23 13:00:00 Outpatient R JUSTINO JAG [facility] [id number] [facility] 2020-08-23 11:22:54 2020-08-23 12:02:00 Hospital Encounter Justino [facility] 1.2.840.114 350.1.13.10 4.2.7.2.686 [id number] [facility] 2020-08-15 00:00:00 2020-08-15 00:00:00 Orders Only Doctor Unassigned, [place] [facility] 1.2.840.114 350.1.13.10 4.2.7.2.686 [id number] [facility] 2020-06-16 14:10:00 2020-06-16 14:10:00 Outpatient GOYO PARRISH [facility] [id number] [facility] 2020-05-26 14:05:00 2020-05-26 14:05:00 Outpatient [facility] [id number] [facility]
--- NOTE | 2023-02-12 18:18 | RAD REPORT ---
EXAM DESCRIPTION: RAD - Chest Single View - 02/12/2023 6:08 pm CLINICAL HISTORY: COPD COMPARISON: Chest Single View dated 01/17/2023; Chest Pa And Lat (2 Views) dated 03/06/2022; Chest Sin gle View dated 10/16/2021; Chest Single View dated 10/04/2015 FINDINGS: Lines: None. Lungs: No evidence of edema or pneumonia. Pleural: No significant pleural effusions or pneumothorax. Cardiac: The heart size is within normal limits. Mediastinum: Within normal limits. Bones: No acute fractures. Other: None IMPRESSION: No acute cardiopulmonary disease.
[2023-02-12 18:51] LABS: Absolute Lymphocytes (CBC) 1.4 K/uL (0.7-4.9); Hematocrit 40.7 % (39.6-49.0); Lymphocytes % 37.8 % (15.3-44.8); MCV 95.9 fL (80-100); MPV 6.6 fL (7.6-11.3); Platelets 174 thou/uL (152-406); RBC Red Blood Cell Count 4.24 M/uL (4.33-5.43)
[2023-02-12 19:09] LABS: Albumin 3.8 g/dL (3.4-5.0); Bilirubin Total 0.4 mg/dL (0.2-1.0); Potassium 3.8 mEq/L (3.5-5.1); Protein, Total 7.5 g/dL (6.4-8.2)
[2023-02-12 19:38] LABS: SARS-CoV-2 Antigen Rapid Res Negative (Negative)
--- NOTE | 2023-02-12 19:47 | RAD REPORT ---
EXAM DESCRIPTION: CT - Thorax W/ Con - 02/12/2023 7:37 pm CLINICAL HISTORY: COPD COMPARISON: Thorax Wo Con dated 01/10/2023 TECHNIQUE: CT scan of the chest was obtained with IV contrast. All CT scans are performed using dose optimization technique as appropriate and may include automated exposure control or mA/KV adjustment according to patient size. FINDINGS: Chest Wall: No suspicious thyroid nodules or pathologic lymphadenopathy. Lungs: No acute abnormality. Pleura: No significant effusions or pneumothorax. Mediastinum/rema: No pathologic lymphadenopathy. Moderately thickened mid and distal esophagus which may reflect esophagitis. Pulmonary arteries/Aorta: No filling defect identified. No aortic aneurysm. Heart: No significant pericardial effusion. Normal heart size. Coronary calcifications in the LAD. Upper abdomen: No acute abnormality.Hepatic steatosis Bones: No acute abnormality. Nondisplaced right eighth and ninth lateral rib fractures again identifi ed. IMPRESSION: No acute findings within the chest. Esophageal wall thickening likely reflecting esophag itis. Endoscopy could better evaluate. Subacute nondisplaced right eighth and ninth lateral rib fract ures again identified.
--- NOTE | 2023-02-12 20:03 | ER ---
Nurse's Notes [facility] Name: Ayden España Age: 62 yrs Sex: Male : 1960 Arrival Date: 02/12/2023 Time: 17:10 Bed 13 Private MD: Diagnosis: COPD/ Chronic obstructive pulmonary disease with (acute) exacerbation Presentation: 02/12 17:26 Chief complaint: Patient states: COUGH X2 WEEKS, CHILLS AND BLOOD TINGED SPUTUM. PT cm10 FRACTURED HIS RIBS 5 WEEKS AGO. Coronavirus screen: Vaccine status: Patient reports being unvaccinated. Client denies travel out of the [place] in the last 14 days. Ebola Screen: Patient denies travel to an Ebola-affected area in the 21 days before illness onset. No symptoms or risks identified at this time. Initial Sepsis Screen: Does the patient meet any 2 criteria? No. Patient's initial sepsis screen is negative. Does the patient have a suspected source of infection? No. Patient's initial sepsis screen is negative. Risk Assessment: Do you want to hurt yourself or someone else? Patient reports no desire to harm self or others. Onset of symptoms was February 12, 2023. 17:26 Method Of Arrival: Ambulatory cm10 17:26 Acuity: MAVIS 3 cm10 Historical: - Allergies: 17:29 NKDA; cm10 - PMHx: 17:29 Anxiety; BAKERS CYST REMOVAL; BAKERS CYST REMOVAL; Depression; GERD; cm10 - Immunization history:: Adult Immunizations unknown. - Social history:: Smoking status: Patient denies any tobacco usage or history of. Screenin:58 [facility] ED Fall Risk Assessment (Adult) History of falling in the last 3 months, ph including since admission No falls in past 3 months (0 pts) Confusion or Disorientation No (0 pts) Intoxicated or Sedated No (0 pts) Impaired Gait No (0 pts) Mobility Assist Device Used No (0 pt) Altered Elimination No (0 pt) Score/Fall Risk Level 0 - 2 = Low Risk Oriented to surroundings, Maintained a safe environment, Hourly rounding (assess needs \T\ fall precautionary measures) done. Abuse screen: Denies threats or abuse. Denies injuries from another. Nutritional screening: No deficits noted. Tuberculosis screening: No symptoms or risk factors identified. Assessment: 18:56 General: Appears in no apparent distress. comfortable, well groomed, Behavior is calm, ph cooperative, appropriate for age, Denies fever. Pain: Denies pain. Neuro: Level of Consciousness is awake, alert, obeys commands, Oriented to person, place, time, situation. Cardiovascular: Reports shortness of breath, Capillary refill < 3 seconds in bilateral fingers Patient's skin is warm and dry. Respiratory: Reports cough that is with blood tinged sputum that started today Airway is patent Respiratory effort is even, unlabored, Respiratory pattern is regular, symmetrical, Breath sounds are clear bilaterally. GI: No signs and/or symptoms were reported involving the gastrointestinal system. Derm: Skin is intact, is healthy with good turgor, Skin is pink, warm \T\ dry. 19:10 General: Appears in no apparent distress. comfortable, well groomed, well developed, pf1 Behavior is calm, cooperative, appropriate for age, quiet. 19:10 Pain: Denies pain. Neuro: No deficits noted. Level of Consciousness is awake, alert, pf1 obeys commands, Oriented to person, place, time, situation. Cardiovascular: Capillary refill < 3 seconds Patient's skin is warm and dry. Respiratory: Reports cough that is productive. GI: No deficits noted. No signs and/or symptoms were reported involving the gastrointestinal system. : No deficits noted. No signs and/or symptoms were reported regarding the genitourinary system. EENT: No deficits noted. No signs and/or symptoms were reported regarding the EENT system. Derm: No deficits noted. No signs and/or symptoms reported regarding the dermatologic system. Skin is intact, is healthy with good turgor, Skin is pink, warm \T\ dry. 20:23 Reassessment: Patient appears in no apparent distress at this time. Patient and/or pf1 family updated on plan of care and expected duration. Pain level reassessed. Patient is alert, oriented x 3, equal unlabored respirations, skin warm/dry/pink. Patient states feeling better. Patient states symptoms have improved. Vital Signs: 17:26 BP 121 / 94; Pulse 86; Resp 18; Temp 98.2(O); Pulse Ox 99% ; Weight 81.65 kg; Height 5 cm10 ft. 9 in. ; 19:07 BP 113 / 86; Pulse 74; Resp 18; Pulse Ox 100% on Nebulizer Mask; ph 20:19 BP 123 / 81; Pulse 75; Resp 16; Pulse Ox 96% on R/A; Pain 0/10; pf1 17:26 Body Mass Index 26.58 (81.65 kg, 175.26 cm) cm10 20:19 Pain Scale: Adult pf1 ED Course: 17:14 Patient arrived in ED. mr 17:16 Reginald Mccracken MD is Attending Physician. ec2 17:29 Triage completed. cm10 17:29 Arm band placed on Patient placed in waiting room. cm10 18:10 CXR XRAY In Process Unspecified. EDMS 18:13 Fanta Gonzalez, RN is Primary Nurse. ph 18:44 Inserted saline lock: 20 gauge in right forearm, using aseptic technique. Blood hb collected. 18:44 BNP Sent. hb 18:44 Influenza Screen (a \T\ B) Sent. hb 18:44 SARS RAPID Sent. hb 18:44 CMP Sent. hb 18:44 CBC with Diff Sent. hb 18:58 Patient has correct armband on for positive identification. Bed in low position. Call ph light in reach. Side rails up X 1. Pulse ox on. NIBP on. 19:38 CT Chest W/ Con In Process Unspecified. EDMS 20:19 IV discontinued, intact, bleeding controlled, No redness/swelling at site. Pressure pf1 dressing applied. 20:24 Provided Education on: prescription. pf1 20:24 No provider procedures requiring assistance completed. pf1 Administered Medications: 18:50 Drug: AZITHromycin IVPB 500 mg IVPB once over 1 hrs; (mix in 250 mL NS) Route: IVPB; ph Infused Over: 1 hrs; Site: right antecubital; 19:20 Follow up: Response: No adverse reaction pf1 20:15 Follow up: IV Status: Completed infusion; IV Intake: 250ml pf1 18:50 Drug: DuoNeb Nebulize (3:1) (2.5 mg - 0.5 mg) 3 ml Nebulizer once Route: Nebulizer; ph 19:19 Follow up: Response: No adverse reaction; Marked relief of symptoms pf1 18:55 Drug: predniSONE PO 40 mg PO once Route: PO; ph 19:20 Follow up: Response: No adverse reaction pf1 Medication: 18:58 VIS not applicable for this client. ph Intake: 20:15 IV: 250ml; Total: 250ml. pf1 Outcome: 20:03 Discharge ordered by . ec2 20:23 Discharged to home ambulatory, pf1 20:23 Condition: improved 20:23 Discharge instructions given to patient, Instructed on discharge instructions, follow up and referral plans. Demonstrated understanding of instructions, follow-up care, medications, Prescriptions given X 2, 20:24 Patient left the ED. pf1 Signatures: Dispatcher [employer] EDOR Agueda Savage, Reg Reg mr Fanta Gonzalez, ENE RN Ceci Worthy RN RN Melonie Montoya RN RN pf1 Mariza Larios RN RN cm10 Reginald Mccracken MD MD ec2
--- NOTE | 2023-02-12 20:03 | EDPHYS ---
Physician Documentation [facility] Name: Ayden España Age: 62 yrs Sex: Male : 1960 Arrival Date: 02/12/2023 Time: 17:10 Bed 13 Private MD: ED Physician Reginald Mccracken HPI: 02/12 17:30 This 62 yrs old Male presents to ER via Ambulatory with complaints of Cough, ec2 Congestion, Breathing Difficulty. 17:30 Patient arrives today for evaluation of cough and cold symptoms. Patient reports that ec2 he has been experiencing 2 to 3 weeks of persistent cough. States that what prompted today is that he is having productive sputum. Patient reports no fevers or chills, no nausea or vomiting, does report diarrhea. Patient reports no chest pain. Denies any leg swelling. Of note he recently had diagnosis of rib fractures and is recovering from this.. Historical: - Allergies: 17:29 NKDA; cm10 - PMHx: 17:29 Anxiety; BAKERS CYST REMOVAL; BAKERS CYST REMOVAL; Depression; GERD; cm10 - Immunization history:: Adult Immunizations unknown. - Social history:: Smoking status: Patient denies any tobacco usage or history of. ROS: 17:30 Constitutional: as per hpi ec2 Exam: 17:30 Constitutional: GEN: NAD Head: atraumatic Eyes: EOMI Ears: External ears are ec2 normal. CV: regular rate LUNGS: no respiratory distress, scattered wheezes noted ABD: non-distended SKIN: no evidence of rashes MSK: no evidence of trauma NEURO: moves all extremities equally Vital Signs: 17:26 BP 121 / 94; Pulse 86; Resp 18; Temp 98.2(O); Pulse Ox 99% ; Weight 81.65 kg; Height 5 cm10 ft. 9 in. ; 19:07 BP 113 / 86; Pulse 74; Resp 18; Pulse Ox 100% on Nebulizer Mask; ph 20:19 BP 123 / 81; Pulse 75; Resp 16; Pulse Ox 96% on R/A; Pain 0/10; pf1 17:26 Body Mass Index 26.58 (81.65 kg, 175.26 cm) cm10 20:19 Pain Scale: Adult pf1 MDM: 17:25 Patient medically screened. ec2 17:30 Data reviewed: vital signs. ED course: Patient arrives today due to concern for cough ec2 and cold symptoms. Examination remarkable for nontoxic individual is in no acute distress. Patient does have a history of COPD as well as rib fractures, will obtain lab work, EKG, chest x-ray, empirically treat for COPD exacerbation. Currently considering pneumonia, COPD exacerbation, viral infection.. 18:47 ED course: Chest x-ray shows no acute intrathoracic process.. ec2 18:59 ED course: CBC with slight leukopenia noted. . ec2 19:15 ED course: EKG independently reviewed and interpreted by me, shows normal sinus rhythm, ec2 rate of 71, no acute ST segment elevations, nonconcerning intervals.. 19:42 ED course: Metabolic profile is reassuring. Negative COVID testing, negative flu ec2 testing, BNP within normal ranges. . 19:59 ED course: CT scan of the chest shows no acute intrathoracic process, some esophagitis ec2 noted, previous rib fractures identified again. . 20:02 ED course: On reassessment patient remains well-appearing in no acute distress. Patient ec2 with history of COPD, will treat as COPD exacerbation with albuterol inhaler which she already has prescribed to him as well as azithromycin and prednisone. Return precautions given. 02/12 17:30 Order name: CBC with Diff; Complete Time: 18:59 ec2 02/12 17:30 Order name: CMP; Complete Time: 19:42 ec2 02/12 17:30 Order name: SARS RAPID; Complete Time: 19:42 ec2 02/12 17:30 Order name: Influenza Screen (a \T\ B); Complete Time: 19:42 ec2 02/12 17:30 Order name: BNP; Complete Time: 19:42 ec2 02/12 17:30 Order name: CXR XRAY; Complete Time: 18:47 ec2 02/12 17:30 Order name: CT Chest W/ Con; Complete Time: 19:59 ec2 02/12 17:30 Order name: EKG; Complete Time: 17:30 ec2 02/12 17:30 Order name: EKG - Nurse/Tech; Complete Time: 19:20 ec2 Administered Medications: 18:50 Drug: AZITHromycin IVPB 500 mg IVPB once over 1 hrs; (mix in 250 mL NS) Route: IVPB; ph Infused Over: 1 hrs; Site: right antecubital; 19:20 Follow up: Response: No adverse reaction pf1 20:15 Follow up: IV Status: Completed infusion; IV Intake: 250ml pf1 18:50 Drug: DuoNeb Nebulize (3:1) (2.5 mg - 0.5 mg) 3 ml Nebulizer once Route: Nebulizer; ph 19:19 Follow up: Response: No adverse reaction; Marked relief of symptoms pf1 18:55 Drug: predniSONE PO 40 mg PO once Route: PO; ph 19:20 Follow up: Response: No adverse reaction pf1 Disposition Summary: 02/12/23 20:03 Discharge Ordered Notes: Location: Home ec2 Condition: Stable ec2 Diagnosis - COPD/ Chronic obstructive pulmonary disease with (acute) exacerbation ec2 Followup: ec2 - With: Private Physician - When: - Reason: Recheck today's complaints Discharge Instructions: - Discharge Summary Sheet ec2 - Chronic Obstructive Pulmonary Disease Exacerbation ec2 Forms: - Medication Reconciliation Form ec2 - Thank You Letter ec2 - Antibiotic Education ec2 - Prescription Opioid Use ec2 - Patient Portal Instructions ec2 - Leadership Thank You Letter ec2 Prescriptions: - azithromycin 250 mg Oral tablet - take 1 tablet ORAL route daily for 4 days; 4 tablet; Refills: 0, Product ec2 Selection Permitted - Prednisone 20 mg Oral Tablet - take 2 tablets ORAL route once daily for 5 days; 10 tablet; Refills: 0, Product ec2 Selection Permitted Signatures: Dispatcher [employer] Fanta Dorado RN RN Mariza Larios RN RN cm10 Reginald Mccracken MD MD ec2 Melonie Montoya RN pf1 Corrections: (The following items were deleted from the chart) 18:11 18:10 Patient medically screened. ec2 ec2
[2023-02-13 03:01] VITALS: BP 123/81; TEMP 98.2; O2SAT 96
--- NOTE | 2023-02-13 15:29 | EKG ---
Test Date: 2023-02-12 Test Time: 19:12:46 Clinic Mgr: KAMAR MEASUREMENT RESULTS: Intervals: Rate: 71 NM: 164 QRSD: 100 QT: 384 QTc: 417 [place]: P: 43 NM: 164 QRS: 64 T: 43 INTERPRETIVE STATEMENTS: Normal sinus rhythm Normal ECG Compared to ECG 10/16/2021 21:06:49 No significant changes Electronically Signed On 02-13-23 15:27:01 [employer] by Miguelito Goodrich
== END ==
LOC: ER 17:10
DX: J44.1 Chronic obstructive pulmonary disease with (acute) exacerbation (principal); Z11.52 Encounter for screening for COVID-19
CPT/HCPCS: 96365; 93005; 85025; 36415; 80053; 83880; 87804 ×2; 71260; 71045; 94640; 99285; 87811; Q9967; J7512; J7613; J7644; J7050

== ENCOUNTER 2024-03-20 12:03 | Emergency (ER) | payer OTHER ==
--- OUTSIDE RECORDS SUMMARY | 2024-03-20 12:05 | XMS REPORT | Continuity of Care Document ---
Author Name Unknown Address [address] [facility]. [address] [place] [address] [facility] thconnect Address [address] [facility] [address] [place] [address] Care Team Providers Care Claim Approver Name Role Phone PCP, PATIENT DOES NOT HAVE A Primary Care Physic miquel Unavailable Kleber Bernabe Attending Clinician Unavailable MICKEY COCHRAN.HClark Attending Clinician Mary Cochran MD, Mickey K.H. Attending Clinician [phone] Doctor Unassigned, [place] Attending Clinician U JAG Chen Attending Clinician Unavailable Jag Corey Attending Clinician [phone] Roge Regan MD Attending Clinician [phone] ROGE REGAN Attending Clinician UnavailGOYO Lynn Attending Clinician Unavailable Payers Payer Name Policy Type Policy Number Effective Date Expirati on Date Source [facility] [id number] 2023 00:00:00 [facility] [id number] 2021 00:00:00 2022 00:00:00 Problems Condition Name Condition Details Condition Category Status Onset Date Resolution Date Last Treatment Date Treating Clinician Comments Source Hand pain, left Hand pain, left Disease Active 06-25 00:00: 00 General acute hospital Allergies, Adverse Reactions, Alerts Allergy Name Allergy Type Status Severity Reaction(s) Onset Date Inactive Date Treating Clinician Comments Source NO KNOWN ALLERGIE S Drug Class Active General acute hospital Social History Social Habit Start Date Stop Date Quantity Comments Source Sexual orientation [facility] History of tobacco use Chews Tobacco [facility] Alcoholic beverage intake 2023-08-21 00:00:00 2023-08-21 00:00:00 Current drinker of alcohol (finding) [facility] History of Social function 2023-08-21 00:00:00 2023-08-21 00:00:00 [facility] Exposure to SARS-CoV-2 (event) 2022-01-17 00:00:00 2022-01-27 14:47:00 Not sure [facility] Alcohol intake 2022-01-27 00:00:00 2022-01-27 00:00:00 Current drinker of alcohol (finding) [facility] Tobacco use and exposure 2012-12-24 00:00:00 2012-12-24 00:00:00 User of smokeless tobacco [facility] Sex assigned at 1960 00:00:00 1960 00:00:00 [facility] Smoking Status Start Date Stop Date Source Never smoked tobacco General acute hospital Medications Ordered Medication Name Filled Medication Name Start Date Stop Date Current Medication? Ordering Clinician Indication Dosage Frequency Signature (SIG) Comments Components Source CITALOPRAM HYDROBROMID E (CITALOPRAM ORAL) 08-20 12:57: 18 Yes Take by mouth. General acute hospital omeprazole 20 mg capsule 08-20 08:52: 25 Yes 20mg Take 1 capsule by mouth in the morning. General acute hospital aspirin 81 mg chewable tablet 2021-02 15:06: 22 01-27 00:00 :00 No 81mg Take 81 mg by mouth daily. General acute hospital OMEPRAZOLE ORAL 2021-02 15:06: 13 01-27 00:00 :00 No Take by mouth. General acute hospital traZODone 50 mg tablet 11-12 00:00: 00 Yes 50mg 50 mg. General acute hospital diclofenac 75 mg EC tablet 2020-02 00:00: 00 01-27 00:00 :00 No [id number] 75mg Take 1 tablet by mouth 2 (two) times daily with meals. General acute hospital diclofenac 75 mg EC tablet 8-30 00:00: 00 01-27 00:00 :00 No [id number] 75mg Take 1 tablet by mouth 2 (two) times daily with meals. General acute hospital CITALOPRAM HYDROBROMID E (CITALOPRAM ORAL) 08-23 12:54: 25 Yes Take by mouth. General acute hospital aspirin 81 mg chewable tablet 08-23 12:54: 25 Yes 81mg Take 81 mg by mouth daily. General acute hospital DUEXIS 800-26.6 mg per tablet 04-23 00:00: 00 01-27 00:00 :00 No General acute hospital Immunizations Ordered Immunization Name Filled Immunization Name Date Status Comments Source Pneumococcal Polysaccharide, PPSV23 (PNEUMOVAX) 2021-11-12 00:00:00 Completed [facility] TDAP 2021-11-12 00:00:00 Completed [facility] Pneumococcal Polysaccharide, PPSV23 (PNEUMOVAX) 2021-11-12 00:00:00 Completed [facility] TDAP 2021-11-12 00:00:00 Completed [facility] Pneumococcal Polysaccharide, PPSV23 (PNEUMOVAX) 2021-11-12 00:00:00 Completed [facility] TDAP 2021-11-12 00:00:00 Completed [facility] Pneumococcal Polysaccharide, PPSV23 (PNEUMOVAX) 2021-11-12 00:00:00 Completed [facility] TDAP 2021-11-12 00:00:00 Completed [facility] Pneumococcal Polysaccharide, PPSV23 (PNEUMOVAX) 2021-11-12 00:00:00 Completed [facility] TDAP 2021-11-12 00:00:00 Completed [facility] SARS-COV-2 COVID-19 PFIZER VACCINE 2020-06-16 00:00:00 Completed [facility] SARS-COV-2 COVID-19 PFIZER VACCINE 2020-06-16 00:00:00 Completed [facility] SARS-COV-2 COVID-19 PFIZER VACCINE 2020-06-16 00:00:00 Completed [facility] SARS-COV-2 COVID-19 PFIZER VACCINE 2020-06-16 00:00:00 Completed [facility] SARS-COV-2 COVID-19 PFIZER VACCINE 2020-06-16 00:00:00 Completed [facility] SARS-COV-2 COVID-19 PFIZER VACCINE 2020-06-16 00:00:00 Completed [facility] SARS-COV-2 COVID-19 PFIZER VACCINE 2020-06-16 00:00:00 Completed [facility] SARS-COV-2 COVID-19 PFIZER VACCINE 2020-06-16 00:00:00 Completed [facility] SARS-COV-2 COVID-19 PFIZER VACCINE 2020-05-26 00:00:00 Completed [facility] SARS-COV-2 COVID-19 PFIZER VACCINE 2020-05-26 00:00:00 Completed [facility] SARS-COV-2 COVID-19 PFIZER VACCINE 2020-05-26 00:00:00 Completed [facility] SARS-COV-2 COVID-19 PFIZER VACCINE 2020-05-26 00:00:00 Completed [facility] SARS-COV-2 COVID-19 PFIZER VACCINE 2020-05-26 00:00:00 Completed [facility] SARS-COV-2 COVID-19 PFIZER VACCINE 2020-05-26 00:00:00 Completed [facility] SARS-COV-2 COVID-19 PFIZER VACCINE 2020-05-26 00:00:00 Completed [facility] SARS-COV-2 COVID-19 PFIZER VACCINE 2020-05-26 00:00:00 Completed [facility] SARS-COV-2 COVID-19 PFIZER VACCINE Unknown Completed [facility] Pneumococcal Polysaccharide, PPSV23 (PNEUMOVAX) Unknown Completed [facility] TDAP Unknown Completed [facility] Vital Signs Vital Name Observation Time Observation Value Comments S ource Systolic blood pressure 2023-08-21 13:53:00 137 mm[Hg] [facility] Diastolic blood pressure 2023-08-21 13:53:00 95 mm[Hg] [facility] Heart rate 2023-08-21 13:53:00 70 /min [facility] Oxygen saturation in Arterial blood by Pulse oximetry 2023-08-21 13:53:00 97 /min [facility] Body temperature 2023-08-21 13:50:00 36.94 Liseth [facility] Respiratory rate 2023-08-21 13:50:00 20 /min [facility] Body height 2023-08-21 13:50:[address] [facility] [place] [place] Body weight 2023-08-21 13:50:00 86.955 kg Univ [facility] BMI 2023-08-21 13:50:00 27.51 kg/m2 [facility] [place] [place] Systolic blood pressure 2022-08-20 16:36:00 129 mm[Hg] [facility] Diastolic blood pressure 2022-08-20 16:36:00 85 mm[Hg] [facility] Heart rate 2022-08-20 16:36:00 65 /min [facility] [place] [place] Body height 2022-08-20 16:36:00 177.8 cm [facility] Body weight 2022-08-20 16:36:00 82.419 kg Univ [facility] BMI 2022-08-20 16:36:00 26.07 kg/m2 [facility] Oxygen saturation in Arterial blood by Pulse oximetry 2022-08-20 16:36:00 97 /min [facility] Systolic blood pressure 2022-01-27 21:08:00 138 mm[Hg] [facility] Diastolic blood pressure 2022-01-27 21:08:00 98 mm[Hg] [facility] Heart rate 2022-01-27 21:08:00 83 /min [facility] [place] [place] Respiratory rate 2022-01-27 21:04:00 19 /min [facility] Body height 2022-01-27 21:04:[address] [place] [place] Body weight 2022-01-27 21:04:00 81.738 kg Univ [facility] BMI 2022-01-27 21:04:00 25.86 kg/m2 [facility] Systolic blood pressure 2021-01-16 19:17:00 124 mm[Hg] [facility] Diastolic blood pressure 2021-01-16 19:17:00 75 mm[Hg] [place] [facility] Heart rate 2021-01-16 19:17:00 82 /min [facility] Body height 2021-01-16 19:17:[address] [facility] Body weight 2021-01-16 19:17:[address] [facility] BMI 2021-01-16 19:17:00 27.98 kg/m2 [facility] Procedures Procedure Date / Time Performed Performing Clinician Source [facility] PATIENT FINANCIAL POLICY 2022-08-20 16:12:29 Doctor Unassigned, [place] [facility] AUTHORIZATION FOR RELEASE OF PHI 2022-02-06 06:01:00 Doctor Unassigned, [place] [facility] ASSIGNMENT OF BENEFITS 2022-01-27 20:48:13 Docto r Unassigned, [place] [facility] REFERRAL- REQUEST/RESPONSE 2021-12-23 06:01:00 Doctor Unassigned, [place] [facility] Encounters Start Date/Time End Date/Time Encounter Type Admission Type Attending Clinicians Care Facility Care Department Encounter ID Source 2021-03-13 14:03:11 Outpatient Bernabe, [facility] [id number] [facility] 2021-03-13 14:02:22 Outpatient Ebrnabe, Kle[facility] [id number] [facility] 2021-03-13 13:34:00 Outpatient Bernabe, Kleber [facility] [id number] [facility] 2021-03-13 13:33:04 Outpatient Bernabe, Kleber [facility] [id number] [facility] 2021-03-13 13:29:32 Outpatient Bernabe, [facility] [id number] [facility] 2021-03-13 13:28:45 Outpatient Bernabe, Kle[facility] [id number] [facility] 2021-03-13 13:28:22 Outpatient Bernabe, Kleber [facility] [id number] [facility] 2021-03-13 13:05:47 Outpatient Bernabe, Kleber [facility] [id number] [facility] 2021-03-13 12:46:43 [facility]patient [facility] [id number] [facility] 2021-03-13 12:42:18 Outpatient [facility] [id number] [facility] 2023-08-21 09:00:00 2023-08-21 09:25:23 Outpatient R MICKEY COCHRAN [facility] [id number] General acute hospital 2023-08-21 09:00:00 2023-08-21 09:25:23 Office Visit Mickey Cochran [facility] 1.840.114 350.1.13.10 4.2.7.2.686 [id number] General acute hospital 2022-08-20 11:30:00 2022-08-20 12:04:39 Outpatient R MICKEY COCHRAN [facility] [id number] General acute hospital 2022-08-20 11:30:00 2022-08-20 12:04:39 Office Visit Mickey Cochran [facility] 1..840.114 350.1.13.10 4.2.7.2.686 [id number] General acute hospital 2022-08-20 00:00:00 2022-08-20 00:00:00 Orders Only Doctor Unassigned, [place] [facility] 1.840.114 350.1.13.10 4.2.7.2.686 [id number] General acute hospital 2022-02-06 00:00:00 2022-02-06 00:00:00 Telephone Mickey Cochran [facility] 1.2.840.114 350.1.13.10 4.2.7.2.686 [id number] General acute hospital 2022-02-06 00:00:00 2022-02-06 00:00:00 Orders Only Doctor Unassigned, [place] [facility] 1.2840.114 350.1.13.10 4.2.7.2.686 [id number] General acute hospital 2022-01-27 15:00:00 2022-01-27 15:27:19 [id number] 2022-01-27 15:00:00 2022-01-27 15:27:19 Office Visit Mickey Cochran [facility] 1.2840.114 350.1.13.10 4.2.7.2.686 [id number] General acute hospital 2022-01-27 00:00:00 2022-01-27 00:00:00 Orders Only Doctor Unassigned, [place] [facility] 1.20.114 350.1.13.10 4.2.7.2.686 [id number] General acute hospital 2022-01-24 14:00:00 2022-01-24 14:00:00 Outpatient R MICKEY COCHRAN [facility] [id number] General acute hospital 2021-12-23 00:00:00 2021-12-23 00:00:00 Orders Only Doctor Unassigned, [place] [facility] 1.2840.114 350.1.13.10 4.2.7.2.686 [id number] General acute hospital 2021-01-16 13:45:00 2021-01-16 23:59:00 Outpatient R JAG CARMONA [facility] [id number] General acute hospital 2021-01-16 13:45:00 2021-01-16 23:59:00 Hospital Encounter Jag Carm[facility] 1..840.114 350.1.13.10 4.2.7.2.686 [id number] General acute hospital 2021-01-16 13:05:09 2021-01-16 13:56:23 [facility] 1..840.114 350.1.13.10 4.2.7.2.686 [id number] General acute hospital 2021-01-16 13:00:00 2021-01-16 13:56:23 Outpatient R ROGE REGAN [facility] [id number] General acute hospital 2020-10-15 13:18:53 2020-10-15 13:49:57 [facility] 1..840.114 350.1.13.10 4.2.7.2.686 [id number] General acute hospital 2020-10-15 13:30:00 2020-10-15 13:30:00 Outpatient R ROGE REGAN [facility] [id number] General acute hospital 2020-10-10 00:00:00 2020-10-10 00:00:00 [facility]phone [facility] 1..840.114 350.1.13.10 4.2.7.2.686 [id number] General acute hospital 2020-09-27 08:00:00 2020-09-27 08:00:00 Outpatient R ROGE REGAN [facility] [id number] General acute hospital 2020-09-27 00:00:00 2020-09-27 00:00:00 Orders Only Doctor Unassigned, [place] [facility] 1.2.840.114 350.1.13.10 4.2.7.2.686 [id number] General acute hospital 2020-09-27 00:00:00 2020-09-27 00:00:00 Telephone Roge Regan [facility] 1.2.840.114 350.1.13.10 4.2.7.2.686 [id number] General acute hospital 2020-08-29 00:00:00 2020-08-29 00:00:00 Telephone Just[facility] 1.2.840.114 350.1.13.10 4.2.7.2.686 [id number] General acute hospital 2020-08-23 12:03:53 2020-08-23 23:59:00 Hospital Encounter Justino [facility] 1.2.840.114 350.1.13.10 4.2.7.2.686 [id number] General acute hospital 2020-08-23 12:48:40 2020-08-23 13:32:37 Office Visit Justino [facility] 1.2.840.114 350.1.13.10 4.2.7.2.686 [id number] General acute hospital 2020-08-23 13:00:00 2020-08-23 13:00:00 Outpatient R JUSTINO [facility] [id number] General acute hospital 2020-08-23 11:22:54 2020-08-23 12:02:00 Hospital Encounter Carmona, Jag S [facility] 1..840.114 350.1.13.10 4.2.7.2.686 [id number] General acute hospital 2020-08-15 00:00:00 2020-08-15 00:00:00 Orders Only Doctor Unassigned, [place] [facility] 1..840.114 350.1.13.10 4.2.7.2.686 [id number] General acute hospital 2020-06-16 14:10:00 2020-06-16 14:10:00 Outpatient GOYO PARRISH [facility] [id number] General acute hospital 2020-05-26 14:05:00 2020-05-26 14:05:00 Outpatient [facility] [id number] General acute hospital
--- NOTE | 2024-03-20 13:21 | RAD REPORT ---
EXAMINATION: CT HEAD WITHOUT CONTRAST CLINICAL INDICATION: Male, 63 years old.Weakness;Dizziness TECHNIQUE: Axial CT images from the skull base to the vertex without intravenous contrast. Coronal an d sagittal reformatted images were created from the data set. One or more of the following dose reduction techniques were used: Automated exposure control, adjustment of the mA and/or kV according to patient size, and/or iterative reconstruction. Unless otherwise specified, incidental findings do not require dedicated imaging follow-up. [id number]. COMPARISON: No prior exam. FINDINGS: INTRACRANIAL: No acute intracranial hemorrhage. No hydrocephalus. No mass effect or midline shift. Mi ld chronic small vessel ischemic changes.Age advanced cerebral atrophy. VASCULATURE: No visualized abnormalities in the arteries or dural venous sinuses. SCALP/SKULL: No significant soft tissue or osseous abnormalities. SINUSES: The visualized paranasal sinuses and mastoid air cells are predominantly clear. IMPRESSION: No acute intracranial abnormality.
[2024-03-20 13:37] LABS: Specific Gravity 1.024 (1.005-1.030); Sqamous Epithelial None Seen /HPF (None Seen); Urine Bacteria None Seen /HPF (<20); Urine Bilirubin NEGATIVE (Negative); Urine Blood Negative (Negative); Urine Clarity Clear (Clear); Urine Color Yellow (Yellow); Urine Culture Reflex Order NOT NEEDED; Urine Glucose NEGATIVE (Negative); Urine Ketones TRACE (Negative); Urine Microscopic Reflex YN ORDER UMIC; Urine Nitrite NEGATIVE (Negative); Urine Protein TRACE (Negative); Urine RBC <5 /HPF (None Seen); Urine Urobilinogen Normal (Normal); Urine WBC <5 /HPF (<5)
[2024-03-20 13:38] LABS: Absolute Eosinophils 0.1 K/uL (0-0.5); Absolute Lymphocytes (CBC) 0.6 K/uL (0.7-4.9); Absolute Monocytes 0.4 K/uL (0.1-1.3); Absolute Neutrophil 3.9 K/uL (1.8-8.0); Basophils % 0.3 % (0-1.3); Eosinophils % 1.1 % (0-4.4); Hematocrit 41.8 % (39.6-49.0); Hemoglobin 14.9 g/dL (13.6-17.9); Lymphocytes % 12.3 % (15.3-44.8); MCHC 35.5 g/dL (32.0-36.0); MCV 95.7 fL (80-100); MPV 6.9 fL (7.6-11.3); Monocytes % 7.7 % (3.3-12.3); Neutrophils % 78.6 % (41.7-73.7); Nucleated Red Blood Cells % 0.1 % (0-0); Platelets 191 thou/uL (152-406); RBC Red Blood Cell Count 4.37 M/uL (4.33-5.43); Red Cell Distribution Width 12.9 % (12.1-15.2)
[2024-03-20 13:46] LABS: PT Prothrombin Time 10.8 SECONDS (9.4-12.5); Protime INR 1.03
--- NOTE | 2024-03-20 13:50 | RAD REPORT ---
EXAM: Chest Single View HISTORY: weakness COMPARISON: 02/12/2023 FINDINGS: LUNGS/PLEURA: The lungs are clear. No pleural effusions or pneumothorax. No pulmonary edema. MEDIASTINUM: The mediastinal silhouette is within normal limits. CARDIAC: The cardiac silhouette is within normal limits. UPPER ABDOMEN: No significant abnormality. BONES: No acute abnormality. LINES/TUBES/OTHER: N/A IMPRESSION: No evidence of acute cardiopulmonary disease.
[2024-03-20 13:57] LABS: Albumin 4.2 g/dL (3.4-5.0); Albumin/Globulin Ratio 1.2 (1.1-1.8); Anion Gap 10.9 mEq/L (5.0-15.0); Bilirubin Direct 0.2 mg/dL (0-0.2); Bilirubin Indirect, Calculated 0.4 mg/dL (0.2-0.8); Bilirubin Total 0.6 mg/dL (0.2-1.0); Globulin 3.6 g/dL (2.3-3.5); Magnesium 2.1 mg/dL (1.6-2.4); Potassium 3.9 mEq/L (3.5-5.1); Protein, Total 7.8 g/dL (6.4-8.2)
[2024-03-20 14:27] LABS: SARS-CoV-2 Antigen CONTROL BLUE LINE VIS/BG OK; SARS-CoV-2 Antigen Rapid Res Negative (Negative)
[2024-03-20] MEDS ORDERED: MECLIZINE HCL 12.5 MG TAB ONE (14:45)
[2024-03-20] MEDS ORDERED: ONDANSETRON 4 MG/2 ML VIAL ONE (14:45)
--- NOTE | 2024-03-20 15:56 | RAD REPORT ---
EXAMINATION: CTA NECK CLINICAL INDICATION: Male, 63 years old. dizziness TECHNIQUE: Axial CT images were obtained from the aortic arch to the skull base after intravenous con trast utilizing angiographic protocol with 3D post-processing (maximum intensity projection images, volume rendered images and/or shaded surface rendered images). One or more of the following dose redu ction techniques were used: Automated exposure control, adjustment of the mA and/or kV according to patient size, and/or iterative reconstruction. Unless otherwise specified, incidental findings do not require dedicated imaging follow-up. [id number]. NASCET criteria used. Mild 0-49% stenosis Moderate 50-69% stenosis Severe 70-99% stenosis COMPARISON: No prior exam. FINDINGS: AORTA: The imaged aortic arch is normal. CCA: The common carotid arteries are patent and normal in caliber. ICA/ECA: Bilateral internal and external carotid arteries are patent. There is no significant interna l carotid artery stenosis. Where applicable, degree of stenosis is measured using NASCET-like criteria. VERTEBRAL: The cervical vertebral arteries are patent and codominant. SOFT TISSUE: No significant neck soft tissue abnormalities. The visualized lung apices are clear. 3D images confirm these findings. IMPRESSION: Normal neck CTA. No dissection or stenosis.
--- NOTE | 2024-03-20 15:57 | RAD REPORT ---
EXAMINATION: CTA HEAD CLINICAL INDICATION: Male, 63 years old. DIZZINESS TECHNIQUE: Axial CT images were obtained through the head after intravenous contrast utilizing angiog raphic protocol with 3D post-processing (maximum intensity projection images, volume rendered images and/or shaded surface rendered images). One or more of the following dose reduction technique s were used: Automated exposure control, adjustment of the mA and/or kV according to patient size, and/or iterative reconstruction. Unless otherwise specified, incidental findings do not require dedic ated imaging follow-up. COMPARISON: No prior exam. FINDINGS: ICA: The petrous, cavernous, and supraclinoid segments of the bilateral internal carotid arteries are normal. The ophthalmic artery origins are visualized and normal. The posterior communicating arteries are patent. JT: Anterior cerebral arteries are normal bilaterally. The anterior communicating artery is patent. MCA: Middle cerebral arteries are normal bilaterally. [employer]: Posterior cerebral arteries are normal bilaterally. Vertebrobasilar: The vertebral arteries are patent. The basilar artery is normal in appearance. 3D images confirm these findings. IMPRESSION: No occlusion, aneurysm, or hemodynamically significant stenosis identified.
--- NOTE | 2024-03-20 16:15 | EDPHYS ---
Physician Documentation [facility] Name: Ayden España Age: 63 yrs Sex: Male : 1960 Arrival Date: 03/20/2024 Time: 12:03 Bed 5 Private MD: ED Physician Woodrow Fountain HPI: 03/20 12:40 This 63 yrs old Male presents to ER via Wheelchair with complaints of Shakiness cp weakness lightheaded. 12:40 The patient's problem is reported as weakness, that is generalized, dizziness. cp 12:40 Onset: The symptoms/episode began/occurred today. Duration: This was a single incident. cp Context: symptoms became apparent while working today, noticed arms shaking and then legs and shaking all over. Associated signs and symptoms: Pertinent negatives: abdominal pain, chest pain. Patient's baseline: Neuro: alert and fully oriented, Motor: no deficits, Ambulation: walks without assistance, Speech: normal. Historical: - Allergies: 12:33 NKDA; cm10 - PMHx: 12:33 Anxiety; BAKERS CYST REMOVAL; Depression; GERD; cm10 - Immunization history:: Adult Immunizations up to date. - Infectious Disease History:: Denies. - Social history:: Smoking status: Patient denies any tobacco usage or history of. ROS: 12:45 Constitutional: history per hpi cp Exam: 12:50 Constitutional: The patient appears in no acute distress, alert, awake, cp non-diaphoretic, non-toxic, well developed, well nourished, 12:50 Head/Face: Normocephalic, atraumatic. cp 12:50 Eyes: Periorbital structures: appear normal, Pupils: equal, round, and reactive to light and accomodation, Extraocular movements: intact throughout, Conjunctiva: normal, no exudate, no injection, Sclera: no appreciated abnormality, Lids and lashes: appear normal, bilaterally, 12:50 Chest/axilla: Inspection: normal, Palpation: is normal, no crepitus, no tenderness, 12:50 Cardiovascular: Rate: normal, Rhythm: regular, Edema: is not appreciated, JVD: is not appreciated, 12:50 Respiratory: the patient does not display signs of respiratory distress, Respirations: normal, Breath sounds: are clear throughout, no decreased breath sounds, no stridor, no wheezing, 12:50 Neuro: Orientation: to person, place \T\ time. Mentation: is normal, Motor: moves all fours, no focal deficits, Sensation: no obvious gross deficits, 14:52 ECG was reviewed by the Attending Physician. cp Vital Signs: 12:32 BP 138 / 97; Pulse 64; Resp 15; Temp 96.7(TE); Pulse Ox 98% ; Weight 81.65 kg; Height 5 cm10 ft. 10 in. ; Pain 0/10; 14:35 BP 152 / 98; Pulse 62; Resp 18; Pulse Ox 97% on R/A; ld1 16:13 BP 151 / 97; Pulse 63; Resp 15; Pulse Ox 96% ; bp 16:42 BP 149 / 81; Pulse 61; Resp 18; Pulse Ox 100% on R/A; ld1 12:32 Body Mass Index 25.83 (81.65 kg, 177.8 cm) cm10 12:32 Pain Scale: Adult cm10 MDM: 12:39 Medical Screening Exam initiated cp 03/20 12:38 Order name: Basic Metabolic Panel; Complete Time: 14:40 cp 03/20 12:38 Order name: CBC with Diff; Complete Time: 14:40 cp 03/20 14:41 Interpretation: Normal except: MPV 6.9; KAI% 78.6; LYM% 12.3; LYMA 0.6. cp 03/20 12:38 Order name: LFT's; Complete Time: 14:40 cp 03/20 12:38 Order name: Magnesium; Complete Time: 14:40 cp 03/20 12:38 Order name: NT PRO-BNP; Complete Time: 14:40 cp 03/20 12:38 Order name: PT-INR; Complete Time: 14:40 cp 03/20 12:38 Order name: Troponin HS; Complete Time: 14:40 cp 03/20 12:38 Order name: Urinalysis w/ reflexes; Complete Time: 14:40 cp 03/20 12:38 Order name: Influenza Screen (a \T\ B); Complete Time: 14:40 cp 03/20 12:38 Order name: SARS RAPID; Complete Time: 14:40 cp 03/20 12:42 Order name: Glucose, Ancillary Testing; Complete Time: 13:35 EDMS 03/20 12:38 Order name: XRAY Chest (1 view); Complete Time: 14:40 cp 03/20 12:38 Order name: CT Head Brain wo Cont; Complete Time: 13:35 cp 03/20 13:35 Interpretation: Report reviewed. cp 03/20 14:53 Order name: CT Head Angio; Complete Time: 16:09 cp 03/20 14:53 Order name: CT Neck Angio; Complete Time: 16:09 cp 03/20 16:10 Interpretation: Report reviewed. cp 03/20 12:38 Order name: EKG; Complete Time: 12:39 cp 03/20 12:38 Order name: Cardiac monitoring; Complete Time: 14:28 cp 03/20 12:38 Order name: EKG - Nurse/Tech; Complete Time: 14:28 cp 03/20 12:38 Order name: IV Saline Lock; Complete Time: 13:31 cp 03/20 12:38 Order name: Labs collected and sent; Complete Time: 13:31 cp 03/20 12:38 Order name: O2 Per Protocol; Complete Time: 13:18 cp 03/20 12:38 Order name: O2 Sat Monitoring; Complete Time: 13:18 cp EC:52 Rate is 62 beats/min. Rhythm is regular. ND interval is normal. QRS interval is normal. cp QT interval is normal. T waves are Inverted in leads III, aVR. Interpreted by me. Reviewed by me. Administered Medications: 14:51 Drug: Meclizine PO 25 mg PO once Route: PO; ld1 14:51 Drug: Ondansetron IVP 4 mg IVP once; over 2 minutes Route: IVP; Site: right antecubital;ld1 Point of Care Testing: Blood Glucose: 12:33 Blood Glucose: 95 mg/dL; cm10 Ranges: Critical Glucose Levels:Adult <50 mg/dl or >400 mg/dl <40 mg/dl or >180 mg/dl Disposition: 18:47 Co-signature as Attending Physician, Woodrow Fountain MD I reviewed the patient's care rn provided by the Advanced Practice Provider and agree with the diagnosis and treatment plan. Disposition Summary: 03/20/24 16:15 Discharge Ordered Notes: Location: Home cp Problem: new cp Symptoms: have improved cp Condition: Stable cp Diagnosis - Dizziness and giddiness cp - Weakness cp Followup: cp - With: Private Physician - When: 2 - 3 days - Reason: Recheck today's complaints Discharge Instructions: - Discharge Summary Sheet cp - Dizziness cp - Weakness cp Forms: - Medication Reconciliation Form cp - Antibiotic Education cp - Prescription Opioid Use cp - Patient Portal Instructions cp - Leadership Thank You Letter cp Prescriptions: - Meclizine 25 mg Oral Tablet - take 1 tablet ORAL route every 8 hours As needed; 30 tablet; Refills: 0, cp Product Selection Permitted - Zofran 4 mg Oral Tablet - take 1 tablet ORAL route every 12 hours As needed; 20 tablet; Refills: 0, cp Product Selection Permitted Signatures: Dispatcher [employer] EDMS Woodrow Fountain MD MD rn Toro Francis PA PA cp Jodi Mccormack RN RN ld1 Mariza Larios RN RN cm10 Corrections: (The following items were deleted from the chart) 12:39 12:39 BASIC METABOLIC PANEL+C.LAB.BRZ ordered. EDMS EDMS 12:39 12:39 CBC+H.LAB.BRZ ordered. EDMS EDMS 12:39 12:39 HEPATIC FUNCTION+C.LAB.BRZ ordered. EDMS EDMS 12:39 12:39 MAGNESIUM+C.LAB.BRZ ordered. EDMS EDMS 12:39 12:39 PROBNP+C.LAB.BRZ ordered. EDMS EDMS 12:39 12:39 PROTIME (+INR)+COAG.LAB.BRZ ordered. EDMS EDMS 12:39 12:39 Troponin High Sensitivity+C.LAB.BRZ ordered. EDMS EDMS 12:39 12:39 Urinalysis+U.LAB.BRZ ordered. EDMS EDMS 12:39 12:39 Influenza Screen (A \T\ B)+BA.LAB.BRZ ordered. EDMS EDMS 12:39 12:39 SARS-COV-2 Antigen Rapid+I.LAB.BRZ ordered. EDMS EDMS 13:41 13:41 CBC Smear Scan ordered. EDMS EDMS 14:54 14:54 Neck Angio+CT.RAD.BRZ ordered. EDMS EDMS
--- NOTE | 2024-03-20 16:15 | ER ---
Nurse's Notes [facility] Name: Ayden España Age: 63 yrs Sex: Male : 1960 Arrival Date: 03/20/2024 Time: 12:03 Bed 5 Private MD: Diagnosis: Dizziness and giddiness;Weakness Presentation: 03/20 12:32 Chief complaint: Patient states: Was working and started feeling shaky weak in the cm10 legs, diaphoretic and lightheaded. Pt denies any pain. Coronavirus screen: Client denies travel out of the [place] in the last 14 days. Ebola Screen: Patient denies travel to an Ebola-affected area in the 21 days before illness onset. Initial Sepsis Screen: Does the patient meet any 2 criteria? No. Patient's initial sepsis screen is negative. Does the patient have a suspected source of infection? No. Patient's initial sepsis screen is negative. Risk Assessment: Do you want to hurt yourself or someone else? Patient reports no desire to harm self or others. Onset of symptoms was March 20, 2024. 12:32 Method Of Arrival: Wheelchair cm10 12:32 Acuity: MAVIS 3 cm10 Triage Assessment: 12:33 General: Appears in no apparent distress. uncomfortable, Behavior is calm, cooperative. cm10 Pain: Denies pain. Neuro: No deficits noted. Level of Consciousness is awake, alert, obeys commands, Oriented to person, place, time, situation, Appropriate for age Speech is normal. Respiratory: No deficits noted. Airway is patent Respiratory effort is even, unlabored, Respiratory pattern is regular, symmetrical. Historical: - Allergies: 12:33 NKDA; cm10 - PMHx: 12:33 Anxiety; BAKERS CYST REMOVAL; Depression; GERD; cm10 - Immunization history:: Adult Immunizations up to date. - Infectious Disease History:: Denies. - Social history:: Smoking status: Patient denies any tobacco usage or history of. Screenin:34 [facility] ED Fall Risk Assessment (Adult) History of falling in the last 3 months, cm10 including since admission No falls in past 3 months (0 pts) Confusion or Disorientation No (0 pts) Intoxicated or Sedated No (0 pts) Impaired Gait Yes (1 pt) Mobility Assist Device Used Yes (1 pt) Altered Elimination No (0 pt) Score/Fall Risk Level 0 - 2 = Low Risk Oriented to surroundings, Maintained a safe environment, Hourly rounding (assess needs \T\ fall precautionary measures) done. Abuse screen: Denies threats or abuse. Denies injuries from another. Nutritional screening: No deficits noted. Tuberculosis screening: No symptoms or risk factors identified. Assessment: 14:35 General: Appears in no apparent distress. comfortable, Behavior is calm, cooperative, ld1 appropriate for age. Pain: Denies pain. Neuro: Level of Consciousness is awake, alert, obeys commands, Oriented to person, place, time, situation. Cardiovascular: Capillary refill < 3 seconds Patient's skin is warm and dry. Respiratory: Airway is patent Respiratory effort is even, unlabored. GI: Abdomen is flat, non-distended. : No signs and/or symptoms were reported regarding the genitourinary system. EENT: No signs and/or symptoms were reported regarding the EENT system. Derm: No signs and/or symptoms reported regarding the dermatologic system. Musculoskeletal: No signs and/or symptoms reported regarding the musculoskeletal system. 16:13 Reassessment: Patient appears in no apparent distress at this time. No changes from ld1 previously documented assessment. Patient and/or family updated on plan of care and expected duration. Pain level reassessed. Patient is alert, oriented x 3, equal unlabored respirations, skin warm/dry/pink. 16:42 Reassessment: Patient appears in no apparent distress at this time. No changes from ld1 previously documented assessment. Patient and/or family updated on plan of care and expected duration. Pain level reassessed. Patient is alert, oriented x 3, equal unlabored respirations, skin warm/dry/pink. Vital Signs: 12:32 BP 138 / 97; Pulse 64; Resp 15; Temp 96.7(TE); Pulse Ox 98% ; Weight 81.65 kg; Height 5 cm10 ft. 10 in. ; Pain 0/10; 14:35 BP 152 / 98; Pulse 62; Resp 18; Pulse Ox 97% on R/A; ld1 16:13 BP 151 / 97; Pulse 63; Resp 15; Pulse Ox 96% ; bp 16:42 BP 149 / 81; Pulse 61; Resp 18; Pulse Ox 100% on R/A; ld1 12:32 Body Mass Index 25.83 (81.65 kg, 177.8 cm) cm10 12:32 Pain Scale: Adult cm10 ED Course: 12:03 Patient arrived in ED. ra3 12:16 Toro Francis PA is PHCP. cp 12:16 Woodrow Fountain MD is Attending Physician. cp 12:33 Triage completed. cm10 12:33 Arm band placed on right wrist. Patient placed in waiting room. cm10 13:09 CT Head Brain wo Cont In Process Unspecified. EDMS 13:17 José Miguel Macedo, ENE is Primary Nurse. bp 13:30 XRAY Chest (1 view) In Process Unspecified. EDMS 13:31 Urinalysis w/ reflexes Sent. ld1 13:31 Influenza Screen (a \T\ B) Sent. ld1 13:31 SARS RAPID Sent. ld1 13:32 Inserted saline lock: 20 gauge in right forearm, using aseptic technique. Blood ld1 collected. Flushed with 10 mL NS. 14:36 Patient has correct armband on for positive identification. Placed in gown. Bed in low ld1 position. Call light in reach. Side rails up X2. pulmonary disease specialist on. Pulse ox on. NIBP on. Door closed. Noise minimized. Warm blanket given. 14:36 No provider procedures requiring assistance completed. ld1 15:51 CT Head Angio In Process Unspecified. EDMS 15:51 CT Neck Angio In Process Unspecified. EDMS 16:13 Provided Education on:. bp 16:42 IV discontinued, intact, bleeding controlled, No redness/swelling at site. ld1 Administered Medications: 14:51 Drug: Meclizine PO 25 mg PO once Route: PO; ld1 14:51 Drug: Ondansetron IVP 4 mg IVP once; over 2 minutes Route: IVP; Site: right antecubital;ld1 Medication: 14:36 VIS not applicable for this client. ld1 Point of Care Testing: Blood Glucose: 12:33 Blood Glucose: 95 mg/dL; cm10 Ranges: Outcome: 16:15 Discharge ordered by MD. cp 16:42 Discharged to home ambulatory, ld1 16:42 Condition: stable 16:42 Discharge instructions given to patient, Instructed on discharge instructions, follow up and referral plans. medication usage, Demonstrated understanding of instructions, follow-up care, medications, Prescriptions given X 3, 16:42 Patient left the ED. ld1 Signatures: Dispatcher [employer] EDMS Toro Francis PA PA cp Peltier, Brian RN RN bp Jodi Mccormack RN RN ld1 Mariza Larios RN RN cm10 Anette Schreiber ra3
[2024-03-20 16:53] VITALS: TEMP 96.7
[2024-03-20 17:10] VITALS: BP 149/81; O2SAT 100
--- NOTE | 2024-03-22 12:18 | EKG ---
Test Date: 2024-03-20 Test Time: 14:47:09 Scalemaker: EDWIN MEASUREMENT RESULTS: Intervals: Rate: 62 OH: 162 QRSD: 94 QT: 418 QTc: 424 Knickerbocker: P: 36 OH: 162 QRS: 44 T: 7 INTERPRETIVE STATEMENTS: Normal sinus rhythm with sinus arrhythmia Normal ECG Compared to ECG 02/12/2023 19:12:46 No significant changes Electronically Signed On 03-22-24 12:15:26 SQL BI DEVELOPER by Joel Jefferson
== END 2024-03-20 16:42 | disposition home or self-care (01) ==
LOC: ER 12:03
DX: R42 Dizziness and giddiness (principal); R53.1 Weakness; Z11.52 Encounter for screening for COVID-19
CPT/HCPCS: 93005; 85025; 81001; 80048; 36415; 83735; 85610; 82947; 80076; 84484; 83880; 87804 ×2; 70450; 70496; 70498; 71045; 96374; 99285; 87811; Q9967; J8597; J2405

== ENCOUNTER 2024-11-28 14:22 | Emergency (ER) | payer OTHER ==
--- NOTE | 2024-11-28 14:47 | ER ---
Nurse's Notes [facility] Name: Ayden España Age: 64 yrs Sex: Male : 1960 Arrival Date: 11/28/2024 Time: 14:22 Bed IW10 Private MD: Diagnosis: Insect bite (nonvenomous) of lower leg Presentation: 11/28 14:44 Chief complaint: Patient states: insect bite to left hutchison. States he is concerned it is me1 a spider bite. Leg was red, warm and stinging. Symptoms have resolved. Coronavirus screen: At this time, the client does not indicate any symptoms associated with coronavirus-19. Ebola Screen: No symptoms or risks identified at this time. Initial Sepsis Screen: Does the patient meet any 2 criteria? No. Patient's initial sepsis screen is negative. Does the patient have a suspected source of infection? No. Patient's initial sepsis screen is negative. Risk Assessment: Do you want to hurt yourself or someone else? Patient reports no desire to harm self or others. Onset of symptoms was November 28, 2024 at 13:45. 14:44 [place] [facility] [place] Acuity: MAVIS 5 me1 Triage Assessment: 14:46 Bite description: bite sustained to left hutchison by insect, animal information:. General: me1 Appears in no apparent distress. well groomed, well developed, well nourished, Behavior is calm, cooperative, appropriate for age, Reports concerned he got bitten by a spider on his left hutchison. Redness, warmth and stinging reported. Pain: Denies pain. EENT: No signs and/or symptoms were reported regarding the EENT system. Neuro: Level of Consciousness is awake, alert, obeys commands, Oriented to person, place, time, situation, Appropriate for age. Cardiovascular: Patient's skin is warm and dry. Respiratory: Airway is patent Respiratory effort is even, unlabored, Respiratory pattern is regular, symmetrical. GI: No signs and/or symptoms were reported involving the gastrointestinal system. : No signs and/or symptoms were reported regarding the genitourinary system. Derm: Wound noted left hutchison Wound is red, warm, insect bite. Musculoskeletal: Circulation, motion, and sensation intact. Range of motion: intact in all extremities. 14:52 Bite description: animal information: vaccination(s) is not applicable. me1 Historical: - Allergies: 14:46 NKDA; me1 - PMHx: 14:46 Anxiety; BAKERS CYST REMOVAL; Depression; GERD; me1 - PSHx: 14:46 None; me1 - Immunization history:: Adult Immunizations up to date. - Infectious Disease History:: Denies. - Social history:: Smoking status: Patient reports use of chewing tobacco. Patient denies any tobacco usage or history of. Screenin:50 [facility] ED Fall Risk Assessment (Adult) History of falling in the last 3 months, me1 including since admission No falls in past 3 months (0 pts) Confusion or Disorientation No (0 pts) Intoxicated or Sedated No (0 pts) Impaired Gait No (0 pts) Mobility Assist Device Used No (0 pt) Altered Elimination No (0 pt) Score/Fall Risk Level 0 - 2 = Low Risk Maintained a safe environment, Provided non-skid footwear, Hourly rounding (assess needs \T\ fall precautionary measures) done. Abuse screen: Denies threats or abuse. Nutritional screening: No deficits noted. Tuberculosis screening: No symptoms or risk factors identified. Assessment: 14:50 General: See triage assessment. Derm: Skin is healthy with good turgor, Skin is normal. me1 Vital Signs: 14:44 BP 124 / 93; Pulse 87; Resp 16; Temp 98.2; Pulse Ox 98% ; Weight 83.91 kg; Height 5 ft. me1 9 in. ; Pain 0/10; 14:44 Body Mass Index 27.32 (83.91 kg, 175.26 cm) me1 14:44 Pain Scale: Adult me1 ED Course: 14:26 Patient arrived in ED. im 14:31 Teri Sharma PA-C is PHCP. sb4 14:31 Woodrow Fountain MD is Attending Physician. sb4 14:46 Triage completed. me1 14:46 Arm band placed on Patient placed in waiting room. me1 14:50 Patient has correct armband on for positive identification. Provided Education on: POC. me1 Verbalized understanding.. 14:50 No provider procedures requiring assistance completed. Patient did not have IV access me1 during this emergency room visit. Administered Medications: No medications were administered Medication: 14:50 VIS not applicable for this client. me1 Outcome: 14:47 Discharge ordered by . sb4 14:50 Discharged to home ambulatory, me1 14:50 Condition: stable 14:50 Discharge instructions given to patient, Instructed on discharge instructions, follow up and referral plans. medication usage, Demonstrated understanding of instructions, follow-up care, medications, Prescriptions given X 1, 14:52 Patient left the ED. me1 Signatures: Teri Sharma PA-C PA-C sb4 Edith Miranda Michelle, RN RN me1
--- NOTE | 2024-11-28 14:47 | EDPHYS ---
Physician Documentation [facility] Name: Ayden España Age: 64 yrs Sex: Male : 1960 Arrival Date: 11/28/2024 Time: 14:22 Bed IW10 Private MD: ED Physician Woodrow Fountain HPI: 11/28 14:50 This 64 yrs old Male presents to ER via Ambulatory with complaints of Insect Bite. sb4 14:50 Patient states that he was working outside today. Later on, he noticed a red kedar on sb4 his leg, thinks he may have been bitten by a spider, although never saw a spider. States that there is redness and warmth around it and it felt tingly. He put hydrocortisone cream on and then came to the ED for further eval. He states that his symptoms have since improved but wanted to be checked. Historical: - Allergies: 14:46 NKDA; me1 - PMHx: 14:46 Anxiety; BAKERS CYST REMOVAL; Depression; GERD; me1 - PSHx: 14:46 None; me1 - Immunization history:: Adult Immunizations up to date. - Infectious Disease History:: Denies. - Social history:: Smoking status: Patient reports use of chewing tobacco. Patient denies any tobacco usage or history of. ROS: 14:50 Constitutional: Negative for fever, chills, and weight loss, sb4 14:50 Skin: Positive for per HPI, 14:50 All other systems are negative, Exam: 14:50 Constitutional: This is a well developed, well nourished patient who is awake, alert, sb4 and in no acute distress. Head/Face: Normocephalic, atraumatic. Eyes: Extra-ocular motions intact. Periorbital areas with no swelling, redness, or edema. ENT: Mucous membranes moist. Respiratory: No increased work of breathing, no retractions or nasal flaring. 14:50 Skin: injury, bite(s), superficial, of the left hutchison, possible insect related with minimal surrounding cellulitis. no abscess, Vital Signs: 14:44 BP 124 / 93; Pulse 87; Resp 16; Temp 98.2; Pulse Ox 98% ; Weight 83.91 kg; Height 5 ft. me1 9 in. ; Pain 0/10; 14:44 Body Mass Index 27.32 (83.91 kg, 175.26 cm) me1 14:44 Pain Scale: Adult me1 MDM: 14:31 Medical Screening Exam initiated sb4 14:50 Differential diagnosis: cellulitis, abscess, insect bite, dermatitis. Data reviewed: sb4 vital signs, nurses notes, and as a result, I will discharge patient. Counseling: I had a detailed discussion with the patient and/or guardian regarding the historical points, exam findings, and any diagnostic results supporting the discharge/admit diagnosis, the need for outpatient follow up, for definitive care, to return to the emergency department if symptoms worsen or persist or if there are any questions or concerns that arise at home. Administered Medications: No medications were administered Disposition: 17:50 Co-signature as Attending Physician, Woodrow Fountain MD I reviewed the patient's care rn provided by the Advanced Practice Provider and agree with the diagnosis and treatment plan. Disposition Summary: 11/28/24 14:47 Discharge Ordered Notes: Location: Home sb4 Problem: new sb4 Symptoms: have improved sb4 Condition: Stable sb4 Diagnosis - Insect bite (nonvenomous) of lower leg sb4 Followup: sb4 - With: Emergency Department - When: As needed - Reason: Fever > 102 F, Worsening of condition Discharge Instructions: - Discharge Summary Sheet sb4 - Insect Bite, Adult, [id number] sb4 Forms: - Antibiotic Education sb4 - Patient Portal Instructions sb4 - Leadership Thank You Letter sb4 Prescriptions: - Cephalexin 500 mg Oral capsule - take 1 capsule ORAL route every 12 hours for 7 days; 14 capsule; Refills: 0, sb4 Product Selection Permitted Signatures: Woodrow Fountain MD MD rn Brown, Sophia, PA-C PA-C sb4 Betzy Granados RN RN me1
--- OUTSIDE RECORDS SUMMARY | 2024-11-28 15:28 | XMS REPORT | Continuity of Care Document ---
Author Name Unknown Address [address] [facility] [address] [place] [address] [facility] Address [address] [facility] [address] [place] [address] Care Team Providers Care Director Of Customer Acquisition Name Role Phone PCP, PATIENT DOES NOT HAVE A Primary Care Physic miquel Unavailable Kleber Bernabe Attending Clinician Unavailable MICKEY COCHRANHClark Attending Clinician Mary Cochran MD, Mickey K.H. Attending Clinician + [phone] Doctor Unassigned, Struthers Attending Clinician U JAG Chen Attending Clinician Unavailable Jag Corey Attending Clinician [phone] Roge Regan MD Attending Clinician [phone] ROGE REGAN Attending Clinician UnavailGOYO Lynn Attending Clinician Unavailable Payers Payer Name Policy Type Policy Number Effective Date Expirati on Date Source [facility] [id number] 2023 00:00:[address] [facility] [id number] 2021 00:00:00 2022 00:00:00 Problems Condition Name Condition Details Condition Category Status Onset Date Resolution Date Last Treatment Date Treating Clinician Comments Source Hand pain, left Hand pain, left Disease Active 06-25 00:00: 00 [facility] Allergies, Adverse Reactions, Alerts Allergy Name Allergy Type Status Severity Reaction(s) Onset Date Inactive Date Treating Clinician Comments Source NO KNOWN ALLERGIE S Drug Class Active [facility] Social History Social Habit Start Date Stop Date Quantity Comments Source Sexual orientation [facility] History of tobacco use Chews Tobacco [facility] Alcoholic beverage intake 2023-08-21 00:00:00 2023-08-21 00:00:00 Current drinker of alcohol (finding) [facility] History of Social function 2023-08-21 00:00:00 2023-08-21 00:00:00 [facility] Exposure to SARS-CoV-2 (event) 2022-01-17 00:00:00 2022-01-27 14:47:00 Not sure [facility] Alcohol intake 2022-01-27 00:00:00 2022-01-27 00:00:00 Current drinker of alcohol (finding) [facility] Tobacco use and exposure 2012-12-24 00:00:00 2012-12-24 00:00:00 User of smokeless tobacco [facility] Sex assigned at 1960 00:00:00 1960 00:00:00 [facility] Smoking Status Start Date Stop Date Source Never smoked tobacco [facility] Medications Ordered Medication Name Filled Medication Name Start Date Stop Date Current Medication? Ordering Clinician Indication Dosage Frequency Signature (SIG) Comments Components Source CITALOPRAM HYDROBROMID E (CITALOPRAM ORAL) 08-20 12:57: 18 Yes Take by mouth. [facility] omeprazole 20 mg capsule 08-20 08:52: 25 Yes 20mg Take 1 capsule by mouth in the morning. [facility] aspirin 81 mg chewable tablet 2021-02 15:06: 22 01-27 00:00 :00 No 81mg Take 81 mg by mouth daily. [facility] OMEPRAZOLE ORAL 2021-02 15:06: 13 01-27 00:00 :00 No Take by mouth. [facility] traZODone 50 mg tablet 11-12 00:00: 00 Yes 50mg 50 mg. [facility] diclofenac 75 mg EC tablet 2020-02 00:00: 00 01-27 00:00 :00 No [id number] 75mg Take 1 tablet by mouth 2 (two) times daily with meals. [facility] diclofenac 75 mg EC tablet 8-30 00:00: 00 01-27 00:00 :00 No [id number] 75mg Take 1 tablet by mouth 2 (two) times daily with meals. [facility] CITALOPRAM HYDROBROMID E (CITALOPRAM ORAL) 08-23 12:54: 25 Yes Take by mouth. [facility] aspirin 81 mg chewable tablet 08-23 12:54: 25 Yes 81mg Take 81 mg by mouth daily. [facility] DUEXIS 800-26.6 mg per tablet 04-23 00:00: 00 01-27 00:00 :00 No [facility] Immunizations Ordered Immunization Name Filled Immunization Name Date Status Comments Source Pneumococcal Polysaccharide, PPSV23 (PNEUMOVAX) 2021-11-12 00:00:00 Completed [facility] TDAP 2021-11-12 00:00:00 Completed [facility] Pneumococcal Polysaccharide, PPSV23 (PNEUMOVAX) 2021-11-12 00:00:00 Completed [facility] TDAP 2021-11-12 00:00:00 Completed [facility] Pneumococcal Polysaccharide, PPSV23 (PNEUMOVAX) 2021-11-12 00:00:00 Completed [facility] TDAP 2021-11-12 00:00:00 Completed [facility] Pneumococcal Polysaccharide, PPSV23 (PNEUMOVAX) 2021-11-12 00:00:00 Completed [facility] TDAP 2021-11-12 00:00:00 Completed [facility] Pneumococcal Polysaccharide, PPSV23 (PNEUMOVAX) 2021-11-12 00:00:00 Completed [facility] TDAP 2021-11-12 00:00:00 Completed [facility] SARS-COV-2 COVID-19 PFIZER VACCINE 2020-06-16 00:00:00 Completed [facility] SARS-COV-2 COVID-19 PFIZER VACCINE 2020-06-16 00:00:00 Completed [facility] SARS-COV-2 COVID-19 PFIZER VACCINE 2020-06-16 00:00:00 Completed [facility] SARS-COV-2 COVID-19 PFIZER VACCINE 2020-06-16 00:00:00 Completed [facility] SARS-COV-2 COVID-19 PFIZER VACCINE 2020-06-16 00:00:00 Completed [facility] SARS-COV-2 COVID-19 PFIZER VACCINE 2020-06-16 00:00:00 Completed [facility] SARS-COV-2 COVID-19 PFIZER VACCINE 2020-06-16 00:00:00 Completed [facility] SARS-COV-2 COVID-19 PFIZER VACCINE 2020-06-16 00:00:00 Completed [facility] SARS-COV-2 COVID-19 PFIZER VACCINE 2020-05-26 00:00:00 Completed [facility] SARS-COV-2 COVID-19 PFIZER VACCINE 2020-05-26 00:00:00 Completed [facility] SARS-COV-2 COVID-19 PFIZER VACCINE 2020-05-26 00:00:00 Completed [facility] SARS-COV-2 COVID-19 PFIZER VACCINE 2020-05-26 00:00:00 Completed [facility] SARS-COV-2 COVID-19 PFIZER VACCINE 2020-05-26 00:00:00 Completed [facility] SARS-COV-2 COVID-19 PFIZER VACCINE 2020-05-26 00:00:00 Completed [facility] SARS-COV-2 COVID-19 PFIZER VACCINE 2020-05-26 00:00:00 Completed [facility] SARS-COV-2 COVID-19 PFIZER VACCINE 2020-05-26 00:00:00 Completed [facility] SARS-COV-2 COVID-19 PFIZER VACCINE Unknown Completed [facility] Pneumococcal Polysaccharide, PPSV23 (PNEUMOVAX) Unknown Completed [facility] TDAP Unknown Completed [facility] Vital Signs Vital Name Observation Time Observation Value Comments S ource Systolic blood pressure 2023-08-21 13:53:00 137 mm[Hg] [facility] Diastolic blood pressure 2023-08-21 13:53:00 95 mm[Hg] [facility] Heart rate 2023-08-21 13:53:00 70 /min [facility] Oxygen saturation in Arterial blood by Pulse oximetry 2023-08-21 13:53:00 97 /min [facility] Body temperature 2023-08-21 13:50:00 36.94 Liseth [facility] Respiratory rate 2023-08-21 13:50:00 20 /min [facility] Body height 2023-08-21 13:50:00 177.8 cm [facility] Body weight 2023-08-21 13:50:00 86.955 kg [facility] BMI 2023-08-21 13:50:00 27.51 kg/m2 [facility] Systolic blood pressure 2022-08-20 16:36:00 129 mm[Hg] [facility] Diastolic blood pressure 2022-08-20 16:36:00 85 mm[Hg] [facility] Heart rate 2022-08-20 16:36:00 65 /min [facility] 2022-08-20 16:36:00 177.8 cm [facility] Body weight 2022-08-20 16:36:00 82.419 kg [facility] BMI 2022-08-20 16:36:00 26.07 kg/m2 [facility] Oxygen saturation in Arterial blood by Pulse oximetry 2022-08-20 16:36:00 97 /min [facility] Systolic blood pressure 2022-01-27 21:08:00 138 mm[Hg] [facility] Diastolic blood pressure 2022-01-27 21:08:00 98 mm[Hg] [facility] Heart rate 2022-01-27 21:08:00 83 /min [facility] Respiratory rate 2022-01-27 21:04:00 19 /min [facility] Body height 2022-01-27 21:04:00 177.8 cm [facility] Body weight 2022-01-27 21:04:00 81.738 kg [facility] BMI 2022-01-27 21:04:00 25.86 kg/m2 [facility] Systolic blood pressure 2021-01-16 19:17:00 124 mm[Hg] [facility] Diastolic blood pressure 2021-01-16 19:17:00 75 mm[Hg] [place] [facility] Heart rate 2021-01-16 19:17:00 82 /min [facility] Body height 2021-01-16 19:17:00 177.8 cm [facility] Body weight 2021-01-16 19:17:00 88.451 kg [facility] BMI 2021-01-16 19:17:00 27.98 kg/m2 [facility] Procedures Procedure Date / Time Performed Performing Clinician Source [facility] PATIENT FINANCIAL POLICY 2022-08-20 16:12:29 Doctor Unassigned, Struthers [facility] AUTHORIZATION FOR RELEASE OF PHI 2022-02-06 06:01:00 Doctor Unassigned, Struthers [facility] ASSIGNMENT OF BENEFITS 2022-01-27 20:48:13 Docto r Unassigned, Struthers [facility] REFERRAL- REQUEST/RESPONSE 2021-12-23 06:01:00 Doctor Unassigned, Struthers [facility] Encounters Start Date/Time End Date/Time Encounter Type Admission Type Attending Clinicians Care Facility Care Department Encounter ID Source 2021-03-13 14:03:11 Outpatient Bernabe, [facility] [id number] [facility] 2021-03-13 14:02:22 Outpatient Bernabe, Kleber [facility] [id number] [facility] 2021-03-13 13:34:00 Outpatient Bernabe, Kleber [facility] [id number] [facility] 2021-03-13 13:33:04 Outpatient Bernabe, Kleber [facility] [id number] [facility] 2021-03-13 13:29:32 Outpatient Bernabe, Kleber [facility] [id number] [facility] 2021-03-13 13:28:45 [facility]abe[facility] [id number] [facility] 2021-03-13 13:28:22 Outpatient Bernabe, [facility] [id number] [facility] 2021-03-13 13:05:47 [facility] [id number] [facility] 2021-03-13 12:46:43 [facility] [id number] [facility] 2021-03-13 12:42:18 [facility] [id number] [facility] 2023-08-21 09:00:00 2023-08-21 09:25:23 Outpatient R MICKEY COCHRAN [facility] [id number] [facility] 2023-08-21 09:00:00 2023-08-21 09:25:23 Office Visit Mickey Cochran [facility] 1.840.114 350.1.13.10 4.2.7.2.686 [id number] [facility] 2022-08-20 11:30:00 2022-08-20 12:04:39 Outpatient R MICKEY COCHRAN [facility] [id number] [facility] 2022-08-20 11:30:00 2022-08-20 12:04:39 Office Visit Mickey Cochran [facility] 1.840.114 350.1.13.10 4.2.7.2.686 [id number] [facility] 2022-08-20 00:00:00 2022-08-20 00:00:00 Orders Only Doctor Unassigned, Struthers [facility] 1.840.114 350.1.13.10 4.2.7.2.686 [id number] [facility] 2022-02-06 00:00:00 2022-02-06 00:00:00 Telephone Mickey Cochran [facility] 1.2.840.114 350.1.13.10 4.2.7.2.686 [id number] [facility] 2022-02-06 00:00:00 2022-02-06 00:00:00 Orders Only Doctor Unassigned, Struthers [facility] 1.2840.114 350.1.13.10 4.2.7.2.686 [id number] [facility] 2022-01-27 15:00:00 2022-01-27 15:27:19 Outpatient R MICKEY COCHRAN [facility] [id number] [facility] 2022-01-27 15:00:00 2022-01-27 15:27:19 Office Visit Mickey Cochran [facility] 1.2840.114 350.1.13.10 4.2.7.2.686 [id number] [facility] 2022-01-27 00:00:00 2022-01-27 00:00:00 Orders Only Doctor Unassigned, Struthers [facility] 1.20.114 350.1.13.10 4.2.7.2.686 [id number] [facility] 2022-01-24 14:00:00 2022-01-24 14:00:00 Outpatient R MICKEY COCHRAN [facility] [id number] [facility] 2021-12-23 00:00:00 2021-12-23 00:00:00 Orders Only Doctor Unassigned, Struthers [facility] 1.2840.114 350.1.13.10 4.2.7.2.686 [id number] [facility] 2021-01-16 13:45:00 2021-01-16 23:59:00 Outpatient R JAG CARMONA [facility] [id number] [facility] 2021-01-16 13:45:00 2021-01-16 23:59:00 Hospital Encounter Jag Carmona [facility] 1..840.114 350.1.13.10 4.2.7.2.686 [id number] [facility] 2021-01-16 13:05:09 2021-01-16 13:56:23 [facility] 1..840.114 350.1.13.10 4.2.7.2.686 [id number] [facility] 2021-01-16 13:00:00 2021-01-16 13:56:23 Outpatient R ROGE REGAN [facility] [id number] [facility] 2020-10-15 13:18:53 2020-10-15 13:49:57 [facility] 1..840.114 350.1.13.10 4.2.7.2.686 [id number] [facility] 2020-10-15 13:30:00 2020-10-15 13:30:00 Outpatient R ROGE REGAN [facility] [id number] [facility] 2020-10-10 00:00:00 2020-10-10 00:00:00 [facility] 1..840.114 350.1.13.10 4.2.7.2.686 [id number] [facility] 2020-09-27 08:00:00 2020-09-27 08:00:00 Outpatient R ROGE REGAN [facility] [id number] [facility] 2020-09-27 00:00:00 2020-09-27 00:00:00 Orders Only Doctor Unassigned, Struthers [facility] 1.2.840.114 350.1.13.10 4.2.7.2.686 [id number] [facility] 2020-09-27 00:00:00 2020-09-27 00:00:00 Telephone Roge Regan [facility] 1.2.840.114 350.1.13.10 4.2.7.2.686 [id number] [facility] 2020-08-29 00:00:00 2020-08-29 00:00:00 Telephone [facility] 1.2.840.114 350.1.13.10 4.2.7.2.686 [id number] [facility] 2020-08-23 12:03:53 2020-08-23 23:59:00 Hospital Encounter [facility] 1.2.840.114 350.1.13.10 4.2.7.2.686 [id number] [facility] 2020-08-23 12:48:40 2020-08-23 13:32:37 Office Visit [facility] 1.2.840.114 350.1.13.10 4.2.7.2.686 [id number] [facility] 2020-08-23 13:00:00 2020-08-23 13:00:00 Outpatient R [facility] [id number] [facility] 2020-08-23 11:22:54 2020-08-23 12:02:00 Hospital Encounter Carmona, [facility] 1..840.114 350.1.13.10 4.2.7.2.686 [id number] [facility] 2020-08-15 00:00:00 2020-08-15 00:00:00 Orders Only Doctor Unassigned, Struthers [facility] 1..840.114 350.1.13.10 4.2.7.2.686 [id number] [facility] 2020-06-16 14:10:00 2020-06-16 14:10:00 Outpatient GOYO PARRISH [facility] [id number] [facility] 2020-05-26 14:05:00 2020-05-26 14:05:00 Outpatient [facility] [id number] [facility]
[2024-11-28 17:02] VITALS: BP 124/93; TEMP 98.2; O2SAT 98
== END 2024-11-28 14:52 | disposition home or self-care (01) ==
LOC: ER 14:22
DX: S00.86XA Insect bite (nonvenomous) of other part of head, initial encounter (principal); F41.9 Anxiety disorder, unspecified; F32.A Depression, unspecified; K21.9 Gastro-esophageal reflux disease without esophagitis; F17.220 Nicotine dependence, chewing tobacco, uncomplicated
CPT/HCPCS: 99283